=== PATIENT | female | born 1980 | race Caucasian/White ===

== ENCOUNTER 2024-11-13 18:02 | Emergency (ER) | payer MEDICAID, SELFPAY ==
--- NOTE | 2024-11-13 18:03 | XRR_ITS ---
PROCEDURE INFORMATION: Exam: XR Chest Exam date and time: 11/13/2024 7:31 PM Age: 44 years old Clinical indication: Chest wall pain; Additional info: Cp TECHNIQUE: Imaging protocol: Radiologic exam of the chest. Views: 1 view. COMPARISON: No relevant prior studies available. FINDINGS: Lungs: Masslike opacities in the left lung base measuring 2.4 cm, in the right lung base measuring 1.8 cm, and a nodular opacity in the right lung base measuring 9 mm. Pleural spaces: Unremarkable. No pleural effusion. No pneumothorax. Heart/Mediastinum: Unremarkable. No cardiomegaly. Bones/joints: Unremarkable. XR/XR chest 1V portable [id number] IMPRESSION: Masslike/nodular opacities in the lung bases, CT chest is recommended for further evaluation.
--- NOTE | 2024-11-13 18:07 | ECG_ITS ---
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
[2024-11-13 18:09] VITALS: BP 145/99; PULSE 84; RESP 17; TEMP 36.6; O2SAT 98; BMI 36.3
[2024-11-13] MEDS: ondansetron 2 mg/ML SDV 2 mL 4 MG IVP (19:21)
[2024-11-13] MEDS: ketorolac 60 mg/2 mL INJ 30 MG IVP (19:22)
[2024-11-13 19:24] LABS: Basophils # 0.1 10^3/uL (0.0-0.1); Basophils % 0.6 %; Eosinophils # 0.1 10^3/uL (0.0-0.8); Hematocrit 34.6 % (36-47); Lymphocytes # 3.5 10^3/uL (0.8-4.8); Lymphocytes % 28.2 %; Mean Corpuscular HGB Conc 31.2 g/dL (30-55); Mean Corpuscular Hemoglobin 25.2 pg (27-33); Mean Corpuscular Volume 80.8 fl (85-98); Mean Platelet Volume 9.6 fL (7.4-10.4); Monocytes # 0.6 10^3/uL (0.2-0.9); Monocytes % 4.8 %; Neutrophils # 8.05 10^3/uL (1.8-7.7); Neutrophils % 65.1 %; Nucleated Red Blood Cells % 0 %; Platelet Count 483 10^3/cmm (157-399); Red Blood Count 4.28 10^6/uL (3.85-5.65); White Blood Count 12.39 10^3/uL (3.29-11.43)
[2024-11-13 19:32] LABS: Partial Thromboplastin Time 27.5 SECONDS (23.9-36.7)
[2024-11-13 19:37] LABS: Troponin(5th) Baseline < 6 ng/L (0-10)
--- NOTE | 2024-11-13 19:41 | ED_ITS ---
HPI - Chest Pain 2 General: Chief Complaint: Chest Pain Stated Complaint: CP Time Seen by Provider: 11/13/24 19:08 History of Present Illness: Patient is a 44-year-old female who presents the emergency department complaining of chest pressure beginning this morning. States that it started with nausea, then started having ringing in her ears as well as a headache and then soon developed the chest pressure. She states it radiates into her back. Denies any personal cardiac history. She does state that she recently began phentermine for weight loss. No shortness of breath, palpitations, or peripheral edema. No concerning family cardiac history. She is reporting that the pain is mild and constant. She has never had this pain prior. No recent sickness, recent surgeries, prolonged immobilization, history of blood clots, or trauma reported. She does report to me history of anxiety. MD complaint: chest pain Onset (ago): hour(s) Timing of current episode: constant Prior episodes: No Onset: awoke with symptoms Pain location: substernal Pain radiation: back Severity: mild Relieving factors: nothing Exacerbating factors: nothing Context: new medications Associated symptoms: Reports nausea; Deny abdominal pain, dyspnea, fever(s), palpitations or vomiting Treatment prior to arrival: none Related Data Allergies Allergy/AdvReac Type Severity Reaction Status Date / Time azithromycin Allergy ALGY-Rash Verified 11/13/24 18:12 Review of Systems 2 General: Reports: 10 or more systems reviewed and unremarkable except in HPI and below Const: Denies: fever(s), chills or fatigue Eyes: Denies: change in vision ENMT: Reports: tinnitus; Denies: throat pain, ear or mastoid pain or nasal discharge Card: Reports: chest pain; Denies: palpitations, swelling of feet/ankles or lightheadedness Resp: Denies: dyspnea, productive cough or wheezing GI: Reports: nausea; Denies: abdominal pain, vomiting, diarrhea or constipation : Denies: flank pain, difficulty voiding, dysuria or urinary frequency Musc: Denies: neck pain, back pain or joint pain Skin/Breast: Denies: rash Neuro: Reports: headache(s); Denies: numbness in extremities or weakness in extremities Physical Exam 2 Const: COMMON NORMALS: no acute distress, patient oriented x3 and no limitations GENERAL APPEARANCE: cooperative, comfortable and well developed ORIENTATION/CONSCIOUSNESS: Yes awake, Yes oriented to person, Yes oriented to place and Yes oriented to time HENMT: COMMON NORMALS: normocephalic, atraumatic and hearing grossly normal bilaterally HEAD & SCALP: normocephalic and atraumatic Eye: COMMON NORMALS: Equal, round and reactive pupils present, EOMs intact bilaterally and conjunctivae normal CONJUNCTIVA: Yes conjunctivae normal P UPIL: Yes Equal, round and reactive pupils present Neck/C-Spine: COMMON NORMALS: full ROM, supple and no JVD Resp: COMMON NORMALS: normal respiratory effort, No retractions, No use of accessory muscles and clear to auscultation bilaterally AUSCULTATION: clear to auscultation bilaterally Cardio: COMMON NORMALS: no JVD, regular rate, regular rhythm, No clicks present (Cardio), No murmurs present (Cardio) and No rub (Cardio) RATE: r egular rate RHYTHM: regular rhythm GI: COMMON NORMALS: Normal to inspection, nondistended, normoactive bowel sounds present, Soft to palpation and non-tender AUSCULTATION: Yes normoactive bowel sounds PALPATION: Yes Soft to palpation RECTAL EXAM: d eferred Extremity: COMMON NORMALS: normal to inspection, full ROM and capillary refill normal Neuro: COMMON NORMALS: patient oriented x3, moves all extremities, no focal motor deficits and no sensory deficits noted SENSORIUM/ORIENTATION: Yes oriented to person, Yes oriented to place and Yes oriented to time Psych: COMMON NORMALS: mental status grossly normal and Normal thought process present THOUGHT PROCESS: Normal thought process present Skin: COMMON NORMALS: no rashes or lesions noted GENERAL SKIN EXAM: no rashes or lesions noted Course 2 Vital Signs: Vital signs: Vital Signs Temperature 98 F 11/13/24 18:09 Pulse Rate 82 11/13/24 20:30 Respiratory Rate 16 11/13/24 20:30 Blood Pressure 135/96 11/13/24 20:30 Pulse Oximetry 99 11/13/24 20:30 Oxygen Delivery Me thod Room Air 11/13/24 18:09 [facility] - Chest Pain Medical Decision Making Patient presented with chest pain among other symptoms today. Physical exam ultimately was unremarkable. EKG obtained showing normal sinus rhythm with no acute STEMI. Baseline troponin was normal. Slight elevation in her white count and found to be anemic, question her she states that she has been told she is anemic before but has not followed up on this. Her initial chest x-ray showed nodular/masslike appearance and recommended CT. The CT did confirm presence of pulmonary nodules, of which I discussed with the patient that she needs to follow-up with primary care to obtain further imaging or reevaluation of this in the future. She has not been short of breath and when I question her about her anemia, she states she has not been having any dark-colored stools or bright red blood per rectum. Additionally has not been reportedly weak or had any excessive weight loss. She actually states she is currently trying to lose weight by taking phentermine, cannot rule out that this caused her symptoms today or that this was blood pressure related. Blood pressure initially was elevated here but has normalized. I do not feel this chest pain is cardiac in nature, potentially related to her anxiety but I do think she needs to be reevaluated with primary care on an outpatient basis promptly and informed her to call tomorrow to set up an appointment. She agrees with this plan and she verbalized understanding to return precautions. Lab Data 11/13/24 19:15 11/13/24 19:15 Radiology Impressions Chest X-Ray 11/13/24 18:03 IMPRESSION: Masslike/nodular opacities in the lung bases, CT chest is recommended for further evaluation. Chest CT 11/13/24 19:58 IMPRESSION: 1. No focal consolidations. 2. Multiple bilateral pulmonary nodules measuring up to 26 mm in the left lower lobe (series 4, image 41). Consider non-emergent PET/CT or tissue sampling.(Reference: Tameka) References: Tameka Sadler, et al. Guidelines for Management of Incidental Pulmonary Nodules Detected on CT Images: From the Fleischner Society 2017. Radiology. 2017;284(1):228-243. Laboratory Results WBC 12.39 10^3/uL (3.29-11.43) H 11/13/24 19:15 RBC 4.28 10^6/uL (3.85-5.65) 11/13/24 19:15 Hgb 10.80 g/dL (11.27-16.99) L 11/13/24 19:15 Hct 34.6 % (36-47) L 11/13/24 19:15 MCV 80.8 fl (85-98) L 11/13/24 19:15 MCH 25.2 pg (27-33) L 11/13/24 19:15 MCHC 31.2 g/dL (30-55) 11/13/24 19:15 RDW 16.0 % (12.1-15.1) H 11/13/24 19:15 Plt Count 483 10^3/cmm (157-399) H 11/13/24 19:15 MPV 9.6 fL (7.4-10.4) 11/13/24 19:15 Neut % (Auto) 65.1 % 11/13/24 19:15 Lymph % (Auto) 28.2 % 11/13/24 19:15 [place] % (Auto) 4.8 % 11/13/24 19:15 Eos % (Auto) 1.0 % 11/13/24 19:15 Baso % (Auto) 0.6 % 11/13/24 19:15 Neut # (Auto) 8.05 10^3/uL (1.8-7.7) H 11/13/24 19:15 Lymph # (Auto) 3.5 10^3/uL (0.8-4.8) 11/13/24 19:15 [place]dwell # (Auto) 0.6 10^3/uL (0.2-0.9) 11/13/24 19:15 Eos # (Auto) 0.1 10^3/uL (0.0-0.8) 11/13/24 19:15 Baso # (Auto) 0.1 10^3/uL (0.0-0.1) 11/13/24 19:15 Nucleated RBC % (auto) 0 % 11/13/24 19:15 Nucleated RBCs # 0.0 /100WBC 11/13/24 19:15 APTT 27.5 SECONDS (23.9-36.7) 11/13/24 19:15 Sodium 140 mmol/L (136-145) 11/13/24 19:15 Potassium 3.9 mmol/L (3.5-5.1) 11/13/24 19:15 Chloride 102 mmol/L (98-107) 11/13/24 19:15 Carbon Dioxide 27 mmol/L (22-29) 11/13/24 19:15 Anion Gap 14.9 (5-19) 11/13/24 19:15 BUN 9 mg/dL (6-20) 11/13/24 19:15 Creatinine 0.7 mg/dL (0.5-0.9) 11/13/24 19:15 GFR Calculation 91.3 mL/min (90-130) 11/13/24 19:15 Glucose 103 mg/dL (65-115) 11/13/24 19:15 Calculated Osmolality 289 mOsm/kg (285-295) 11/13/24 19:15 Calcium 9.7 mg/dL (8.5-10.5) 11/13/24 19:15 Total Bilirubin 0.2 mg/dL (0.15-1.2) 11/13/24 19:15 AST 19 U/L (0-32) 11/13/24 19:15 ALT 22 U/L (0-33) 11/13/24 19:15 Alkaline Phosphatase 116 U/L (35-105) H 11/13/24 19:15 Troponin T Baseline < 6 ng/L (0-10) 11/13/24 19:15 Total Protein 7.7 g/dL (6.6-8.7) 11/13/24 19:15 Albumin 4.7 g/dL (3.5-5.2) 11/13/24 19:15 Globulin 3.0 g/dL (1.3-4.6) 11/13/24 19:15 Lipase 26 U/L (13-60) 11/13/24 19:15 All radiology interpretation(s) finalized by discharge Discharge Plan Discharge Patient Disposition: Home Clinical Impression: Chest pain, Anxiety, Pulmonary nodule, Anemia Condition: Stable Discharge Orders: Discharge ED (Routine); Ordered 11/13/24 Ordered By: Ronaldo Carbone Referrals: Rafa Alvarez MD [Primary Care Provider] - Patient Instructions: Chest Pain (ED), Anemia (ED), Pulmonary Nodules (ED) Activity Restrictions/Additional Instructions: Please follow-up with your primary care provider, call in the morning to schedule an appointment for reevaluation. Have your CT scan reviewed, and also have your labs rechecked in regards to your anemia. Please return with any worsening of chest pain or any other concerning symptoms you have. Please see the attached patient instructions for further education. Print Language: Sami Coding Level of Care Code ED Energy Trader for Jazmine Parra
[2024-11-13 19:43] LABS: Alanine Aminotransferase 22 U/L (0-33); Albumin Level 4.7 g/dL (3.5-5.2); Alkaline Phosphatase 116 U/L (35-105); Anion Gap 14.9 (5-19); Aspartate Amino Transferase 19 U/L (0-32); Blood Urea Nitrogen 9 mg/dL (6-20); Calcium 9.7 mg/dL (8.5-10.5); Carbon Dioxide 27 mmol/L (22-29); Chloride 102 mmol/L (98-107); Glomerular Filtration Rate 91.3 mL/min (90-130); Glucose 103 mg/dL (65-115); Lipase 26 U/L (13-60); Osmolality Calculated 289 mOsm/kg (285-295); Potassium 3.9 mmol/L (3.5-5.1); Sodium 140 mmol/L (136-145); Total Bilirubin 0.2 mg/dL (0.15-1.2); Total Protein 7.7 g/dL (6.6-8.7)
--- NOTE | 2024-11-13 19:58 | CTR_ITS ---
PROCEDURE INFORMATION: Exam: CT Chest With Contrast; Diagnostic Exam date and time: 11/13/2024 8:32 PM Age: 44 years old Clinical indication: Abnormal findings; Other: Abnormal XR; Additional info: XR findings TECHNIQUE: Imaging protocol: Diagnostic computed tomography of the chest with contrast. Radiation optimization: All CT scans at this facility use at least one of these dose optimization techniques: automated exposure control; mA and/or kV adjustment per patient size (includes targeted exams where dose is matched to clinical indication); or iterative reconstruction. Contrast material: OMNIPAQUE 350; Contrast volume: 100 ml; Contrast route: INTRAVENOUS (IV); COMPARISON: CR (CHEST, ) 11/13/2024 7:31 PM RADIATION DOSE METRICS: Total DLP (mGy-cm): 669.41 FINDINGS: Lungs: Multiple bilateral pulmonary nodules measuring up to 26 mm in the left lower lobe (series 4, image 41). No focal consolidations. Pleural spaces: Unremarkable. No pneumothorax. No pleural effusion. Heart: Unremarkable. No cardiomegaly. No pericardial effusion. Lymph nodes: Unremarkable. No enlarged lymph nodes. Vasculature: Unremarkable. No aortic aneurysm. Gallbladder and biliary ducts: The gallbladder is absent. Bones/joints: Unremarkable. No acute fracture. Soft tissues: Unremarkable. CT/CT chest w con* [id number] IMPRESSION: 1. No focal consolidations. 2. Multiple bilateral pulmonary nodules measuring up to 26 mm in the left lower lobe (series 4, image 41). Consider non-emergent PET/CT or tissue sampling.(Reference: Tameka) References: Tameka Sadler et al. Guidelines for Management of Incidental Pulmonary Nodules Detected on CT Images: From the Fleischner Society 2017. Radiology. 2017;284(1):228-243.
[2024-11-13 20:30] VITALS: BP 135/96; PULSE 82; RESP 16; O2SAT 99
[2024-11-13] MEDS: iohexol 350 mg/mL 500 mL Btl (per mL) IV (20:35)
== END 2024-11-13 22:31 | disposition home or self-care (01) ==
PROVIDERS: Emergency Medicine; Emergency Provider Physician Assistant; PCP Family Medicine
DX: R07.9 Chest pain, unspecified (principal); F41.9 Anxiety disorder, unspecified; R91.1 Solitary pulmonary nodule; D64.9 Anemia, unspecified
CPT/HCPCS: 71045; 71260; 80053; 83690; 84484; 85025; 85730; 93005; 96374; 96375; 99285; J1885; J2405

== ENCOUNTER 2025-04-13 13:35 | Emergency (ER) | payer MEDICAID, SELFPAY ==
--- OUTSIDE RECORDS SUMMARY | 2025-04-13 13:41 | XMS_ITS ---
Author Name Interface, [id number] lity Address [address] [place] [id number] [facility] Oncology Address [address] [place] [id number] Allergies and Adverse Reactions Medication/Group Name Reaction Severity Date azithromycin 02/18/2025 Plan Date Type Value 04/02/2025 APPOINTMENT TELEMED (PHONE C ALL ONLY) 04/01/2025 APPOINTMENT CHEMO 15 MIN 03/18/2025 APPOINTMENT CHEMO 15 MIN 03/13/2025 APPOINTMENT CHEMO LAB CHAIR 03/06/2025 APPOINTMENT BLOOD TRANSFUSIO N 03/04/2025 APPOINTMENT CHEMO 15 MIN 03/04/2025 APPOINTMENT ONC FOLLOW-UP 04/01/2025 YUMIKO MRI pelvis w/ an d w/o contrast Reason for Visit TELEMED (PHONE CALL ONLY) Encounters Date Name 03/04/2025 Bone metastasis 03/04/2025 Rectal cancer Diagnostic Results Date Type Test Units Lower Limit Upper Limit Result Flag Comments Status Ordered By Specimen Source Lab Address 03/04 Leuko cytes [#/vo lume] in Blood by Autom ated count 4.8 10.8 7.9 Rosetta l [facility], [address] [place] [id number] [place] [address] 03/04 Eryth rocyt es [#/vo lume] in Blood by Autom ated count 4.2 5.4 3.66 Low [facility], [address] [place] [address] [facility] 03/04 Hemog lobin [Mass /volu me] in Blood 12.0 16.0 8.7 Low [facility], [address] [place] [address] [facility] 03/04 HCT 37.0 47.0 27.9 Low Malvin Pascual Source, [facility], [address] [place] [address] [facility] 03/04 MCV 81.0 99.0 76.2 Low Malvin Pascual [facility], [facility], [address] [place] [address] [facility] 03/04 MCH 27.0 31.0 23.8 Low Malvin Pascual [facility], [facility], [address] [place] [address] [facility] 03/04 MCHC [Mass /volu me] by Autom ated count 32.0 36.0 31.2 Low Malvin Pascual [facility], [address] [place] [address] [facility] 03/04 Eryth rocyt e distr ibuti on width [Rati o] by Autom ated count 11.5 15.5 16.7 High [facility], [address] [place] [address] [facility] 03/04 Plate lets [#/vo lume] in Blood by Autom ated count 130.0 400.0 315 Rosetta l [facility], [facility], [address] [place] [address] [facility] 03/04 MPV 7.4 10.4 8.9 [facility], [facility], [address] [place] [address] [facility] 03/04 Segme nted neutr ophil s/100 leuko cytes in Blood by Autom ated count 43.0 65.0 48.7 Rosetta [facility], [facility], [address] [place] [address] [facility] 06/17 /2025 Lymph ocyte s/100 leuko cytes in Blood by Flow cytom etry (FC) 20.5 45.5 38.3 Rosetta l Malvin Pascual [facility], [facility], [address] [place] [address] [facility] 03/04 MO % 5.5 11.7 9.3 Rosetta l Malvin Pascual [facility], [facility], [address] [place] [address] [facility] 03/04 EO % 0.9 2.9 2.8 Rosetta l Mal[facility], [facility], [address] [place] [address] [facility] 03/04 BA % 0.2 1.0 0.6 Rosetta l Malvin Pascual [facility], [facility], [address] [place] [address] [facility] 03/04 Neutr ophil s [#/vo lume] in Blood by Autom ated count 2.2 4.8 3.83 [facility], [address] [place] [address] [facility] 03/04 Lymph ocyte s [#/vo lume] in Blood by Autom ated count 1.3 2.9 3.01 High [facility], [address] [place] [address] [facility] 03/04 Monoc ytes [#/vo lume] in Blood by Autom ated count 0.3 0.8 0.73 [facility], [facility], [address] [place] [address] [facility] 03/04 Eosin ophil s [#/vo lume] in Blood by Autom ated count 0.0 0.1 0.22 High [facility], [address] [place] [address] [facility] 03/04 Basop hils [#/vo lume] in Blood by Autom ated count 0.0 0.1 0.05 [place] l [facility], [address] [place] [address] [facility] 03/04 Gluco se [Mass /volu me] in Serum or Plasm a 74.0 106.0 98 [place] [facility], [address] [place] [address] [facility] 03/04 BUN 7.0 17.0 7 [place] [facility], [address] [place] [address] [place] [address] [facility] 03/04 Creat inine [Mass /volu me] in Serum or Plasm a 0.7 1.2 0.7 [place] [facility], [address] [place] [address] [facility] 03/04 Sodiu m 137.0 145.0 139 [place] [facility], [address] [place] [address] [facility] 03/04 Potas sium [Mole s/vol ume] in Serum or Plasm a 3.5 5.1 3.4 Low [facility], [address] [place] [address] [place] [address] [facility] 03/04 Chlor ronny 98.0 107.0 106 Ros[place] [facility], [facility] [place] [address] [facility] 03/04 Carbo n dioxi de, total [Mole s/vol ume] in Serum or Plasm a 22.0 30.0 28 [place] [facility], [address] [facility] [address] [facility] 03/04 Calci um [Mass /volu me] in Blood 8.4 10.2 8.3 Low [facility], [address] [place] [address] [facility] 03/04 Anion gap 4.0 12.0 5 [place] [facility], [address] [place] [address] [facility] 03/04 Urea nitro gen/C reati nine [Mass Ratio ] in Blood 12.0 20.0 10.0 Low [facility], [address] [place] [address] [facility] 03/04 Sasha al , anneu lated , mOs/k g 261.0 280.0 276 [place] [facility], [address] [facility] [address] [facility] 03/04 Glome rular filtr ation rate/ 1.73 sq M.pre dicte d [Volu me Rate/ Area] in Serum , Plasm a or Blood by Creat inine -base d formu la (CKD- EPI) 90.0 120.0 110 >=90 [id number]- 89 Mildly Decreased 45-59 Mildly to Moderatel y Decreased 30-44 Moderatel y to Severely Decreased 15-29 Severely Decreased <15 Kidney Failure [facility], [address] [place] [address] [facility] 03/04 Bilir ubin, total 0.2 1.3 0.30 [place] [facility], [address] [place] [address] [facility] 03/04 Aspar diana amino trans feras e [Enzy matic activ ity/v olume ] in Serum or Plasm a 14.0 36.0 20 [place] [facility], [address] [place] [address] [facility] 03/04 Darvin ne amino trans feras e [Enzy matic activ ity/v olume ] in Serum or Plasm a 0.0 34.0 17 [place] [facility], [facility], [address] [facility] [place] [address] [facility] 03/04 Alkal ine phosp hatas e [Enzy matic activ ity/v olume ] in Serum or Plasm a 38.0 126.0 96 Ros[place] [facility], [facility], [address] [facility] [place] [address] [facility] 03/04 Prote in [Mass /volu me] in Serum or Plasm a 6.3 8.2 6.1 Low [facility], [facility], [address] [facility] [address] [facility] 03/04 Album in [Mass /volu me] in Serum or Plasm a 3.5 5.0 3.5 Rosetta l [facility], [facility], [address] [facility] [place] [address] [facility] 03/04 Globu lesli 2.2 4.2 2.6 [place] [facility], [facility], [address] [place] [address] [facility] 03/04 A/G ratio 1.1 2.2 1.30 [place] [facility], [facility], [address] [facility] [address] [facility] 03/04 PRBC, leuko cyte- reduc ed [id number] AN RC PRSMD TRFSD 5 1421 [facility] 03/04 Blood bank type and scree n panel ABO/R h AN CORRECT ED [facility], [address] [facility] [place] [address] 03/04 Blood bank type and scree n panel Antib yung scree n, qual NEGATIV E CORRECT ED Malvin Pascual Unknown [facility], [address] [facility] [place] [address] 03/13 Leuko cytes [#/vo lume] in Blood by Autom ated count 4.8 10.8 8.5 Rosetta l [facility], [facility], [address] [place] [address] [facility] 03/13 Eryth rocyt es [#/vo lume] in Blood by Autom ated count 4.2 5.4 4.34 Rosetta l [facility], [facility], [address] [place] [address] [facility] 03/13 Hemog lobin [Mass /volu me] in Blood 12.0 16.0 10.6 Low [facility], [facility], [address] [place] [address] [facility] 03/13 HCT 37.0 47.0 33.5 Low Mal[facility], [facility], [address] [place] [address] [facility] 03/13 MCV 81.0 99.0 77.2 Low [facility], [facility], [address] [place] [address] [facility] 03/13 MCH 27.0 31.0 24.4 Low [facility], [facility], [address] [place] [address] [facility] 03/13 MCHC [Mass /volu me] by Autom ated count 32.0 36.0 31.6 Low [facility], [facility], [address] [place] [address] [facility] 03/13 Eryth rocyt e distr ibuti on width [Rati o] by Autom ated count 11.5 15.5 17.2 High [facility], [facility], [address] [facility] [place] [address] [facility] 03/13 Plate lets [#/vo lume] in Blood by Autom ated count 130.0 400.0 290 Rosetta l [facility], [facility], [address] [place] [address] [facility] 03/13 MPV 7.4 10.4 9.3 Rosetta l [facility], [facility], [address] [place] [address] [facility] 03/13 Segme nted neutr ophil s/100 leuko cytes in Blood by Autom ated count 43.0 65.0 62.3 Rosetta l [facility], [facility], [address] [place] [address] [facility] 03/13 Lymph ocyte s/100 leuko cytes in Blood by Flow cytom etry (FC) 20.5 45.5 24.9 Rosetta l Malvin Pascual [facility], [facility], [address] [facility] [place] [address] [facility] 03/13 MO % 5.5 11.7 8.7 Rosetta l [facility], [facility], [address] [facility] [place] [address] [facility] 03/13 EO % 0.9 2.9 2.7 Rosetta l [facility], [facility], [address] [place] [address] [facility] 03/13 BA % 0.2 1.0 0.9 Ros[place] l [facility], [facility], [address] [place] [address] [facility] 03/13 Neutr ophil s [#/vo lume] in Blood by Autom ated count 2.2 4.8 5.32 High [facility], [facility], [address] [facility] [place] [address] [facility] 03/13 Lymph ocyte s [#/vo lume] in Blood by Autom ated count 1.3 2.9 2.13 Rosetta l [facility], [facility], [address] [facility] [place] [address] [facility] 03/13 Monoc ytes [#/vo lume] in Blood by Autom ated count 0.3 0.8 0.74 Rosetta l Malvin Pascual [facility], [facility], [address] [facility] [place] [address] [facility] 03/13 Eosin ophil s [#/vo lume] in Blood by Autom ated count 0.0 0.1 0.23 High Malvin Pascual [facility], [facility], [address] [place] [address] [facility] 03/13 Basop hils [#/vo lume] in Blood by Autom ated count 0.0 0.1 0.08 [facility], [facility], [address] [place] [address] [facility] 03/13 Gluco se [Mass /volu me] in Serum or Plasm a 74.0 106.0 118 High Malvin Pascual [facility], [address] [place] [address] [facility] 03/13 BUN 7.0 17.0 8 Rosetta l Malvin Pascual [facility], [address] [place] [address] [facility] 03/13 Creat inine [Mass /volu me] in Serum or Plasm a 0.7 1.2 0.8 [place] l Malvin Pascual [facility], [address] [facility] [place] [address] [facility] 03/13 Sodiu m 137.0 145.0 140 [place] l Mal[facility], [facility], [address] [place] [address] [facility] 03/13 Potas sium [Mole s/vol ume] in Serum or Plasm a 3.5 5.1 4.0 Rosetta l Malvin Pascual [facility], [facility], [address] [place] [address] [facility] 03/13 Chlor ronny 98.0 107.0 103 [place] l Malvin Pascual [facility], [facility], [address] [place] [address] [facility] 03/13 Carbo n dioxi de, total [Mole s/vol ume] in Serum or Plasm a 22.0 30.0 26 Rosetta l Malvin Pascual [facility], [facility], [address] [place] [address] [facility] 03/13 Calci um [Mass /volu me] in Blood 8.4 10.2 9.3 Rosetta l Malvin Pascual [facility], [facility], [address] [place] [address] [facility] 03/13 Anion gap 4.0 12.0 11 Ros[place] l Malvin Pascual [facility], [facility], [address] [place] [address] [facility] 03/13 Urea nitro gen/C reati nine [Mass Ratio ] in Blood 12.0 20.0 10.0 Low Malvin Pascual [facility], [facility], [address] [place] [address] [facility] 03/13 kannan [place] , mOs/k g 261.0 280.0 279 Rosetta l Malvin Pascual [facility], [facility], [address] [place] [address] [facility] 03/13 Glome rhodar filtr ation rate/ 1.73 sq M.pre dicte d [Volu me Rate/ Area] in Serum , Plasm a or Blood by Creat inine -base d formu la (CKD- EPI) 90.0 120.0 94 >=90 [id number]- 89 Mildly Decreased 45-59 Mildly to Moderatel y Decreased 30-44 Moderatel y to Severely Decreased 15-29 Severely Decreased <15 Kidney Failure [facility], [address] [place] [address] [facility] 03/13 Bilir ubin, total 0.2 1.3 0.60 Ros[place] l [facility], [address] [place] [address] [facility] 03/13 Aspar diana amino trans feras e [Enzy matic activ ity/v olume ] in Serum or Plasm a 14.0 36.0 31 Ros[place] [facility], [address] [place] [address] [facility] 03/13 Darvin ne amino trans feras e [Enzy matic activ ity/v olume ] in Serum or Plasm a 0.0 34.0 20 Ros[place] [facility], [address] [place] [address] [facility] 03/13 Alkal ine phosp hatas e [Enzy matic activ ity/v olume ] in Serum or Plasm a 38.0 126.0 116 Ros[place] l [facility], [address] [place] [address] [facility] 03/13 Prote in [Mass /volu me] in Serum or Plasm a 6.3 8.2 7.2 Ros[place] l [facility], [facility] [place] [address] [facility] 03/13 Album in [Mass /volu me] in Serum or Plasm a 3.5 5.0 4.2 Rosetta l Mal[facility], [facility], [address] [place] [address] [facility] 03/13 Globu lesli 2.2 4.2 3.0 Rosetta l Malvin Samara [facility], [facility], [address] [place] [address] [facility] 03/13 A/G ratio 1.1 2.2 1.40 Rosetta l Malvindes Pascual [facility], [facility], [address] [place] [address] [facility] 03/18 Gluco se [Mass /volu me] in Serum or Plasm a 74.0 106.0 95 Rosetta l Malvin Pascual [facility], [facility], [address] [place] [address] [facility] 03/18 BUN 7.0 17.0 10 Rosetta l Malvin Pascual [facility], [facility], [address] [place] [address] [facility] 03/18 Creat inine [Mass /volu me] in Serum or Plasm a 0.7 1.2 0.8 Rosetta l Malvin Pascual [facility], [facility], [address] [place] [address] [facility] 03/18 Sodiu m 137.0 145.0 139 [facility], [facility], [address] [place] [address] [facility] 03/18 Potas sium [Mole s/vol ume] in Serum or Plasm a 3.5 5.1 3.0 Low [facility], [facility], [address] [place] [address] [facility] 03/18 Chlor ronny 98.0 107.0 105 [place] [facility], [facility], [address] [place] [address] [facility] 03/18 Carbo n dioxi de, total [Mole s/vol ume] in Serum or Plasm a 22.0 30.0 29 [place] [facility], [address] [place] [address] [facility] 03/18 Calci um [Mass /volu me] in Blood 8.4 10.2 8.6 [place] [facility], [address] [place] [address] [facility] 03/18 Anion gap 4.0 12.0 5 [place] [facility], [address] [place] [address] [facility] 03/18 Urea nitro gen/C reati nine [Mass Ratio ] in Blood 12.0 20.0 12.5 [place] [facility], [address] [place] [address] [facility] 03/18 Osmol ality , calcu lated , mOs/k g 261.0 280.0 276 [place] [facility], [address] [place] [address] [place] [address] 03/18 Glome rular filtr ation rate/ 1.73 sq M.pre dicte d [Volu me Rate/ Area] in Serum , Plasm a or Blood by Creat inine -base d formu la (CKD- EPI) 90.0 120.0 94 >=90 [id number]- 89 Mildly Decreased 45-59 Mildly to Moderatel y Decreased 30-44 Moderatel y to Severely Decreased 15-29 Severely Decreased <15 Kidney Failure [facility], [address] [place] [address] [facility] 03/18 Bilir ubin, total 0.2 1.3 0.30 [place] [facility], [address] [place] [address] [facility] 03/18 Aspar diana amino trans feras e [Enzy matic activ ity/v olume ] in Serum or Plasm a 14.0 36.0 31 Rosetta l Malvin Pascual [facility], [facility], [address] [facility] [place] [address] [facility] 03/18 Darvin ne amino trans feras e [Enzy matic activ ity/v olume ] in Serum or Plasm a 0.0 34.0 22 Rosetta l Malvin Pascual [facility], [facility], [address] [facility] [place] [address] [facility] 03/18 Alkal ine phosp hatas e [Enzy matic activ ity/v olume ] in Serum or Plasm a 38.0 126.0 114 Rosetta l Malvin Pascual [facility], [facility], [address] [facility] [place] [address] [facility] 03/18 Prote in [Mass /volu me] in Serum or Plasm a 6.3 8.2 6.7 Rosetta l Malvin Pascual [facility], [facility], [address] [place] [address] [facility] 03/18 Album in [Mass /volu me] in Serum or Plasm a 3.5 5.0 3.8 Rosetta l Malvin Pascual [facility], [facility], [address] [place] [address] [facility] 03/18 Globu lesli 2.2 4.2 2.9 Rosetta l Malvin Pascual [facility], [facility], [address] [place] [address] [facility] 03/18 A/G ratio 1.1 2.2 1.30 Rosetta l Malvin Pascual [facility], [facility], [address] [facility] [place] [address] [facility] 03/18 MPV 7.4 10.4 9.5 Rosetta l Malvin Pascual [facility], [facility], [address] [facility] [place] [address] [facility] 03/18 Segme nted neutr ophil s/100 leuko cytes in Blood by Autom ated count 43.0 65.0 55.2 Rosetta l Mal[facility], [facility], [address] [facility] [place] [address] [facility] 03/18 Lymph ocyte s/100 leuko cytes in Blood by Flow cytom etry (FC) 20.5 45.5 31.6 Rosetta l [facility], [facility], [address] [facility] [place] [address] [facility] 03/18 MO % 5.5 11.7 8.0 Rosetta l Mal[facility], [facility], [address] [facility] [place] [address] [facility] 03/18 EO % 0.9 2.9 4.0 High Malvin P[facility], [facility], [address] [place] [address] [facility] 03/18 BA % 0.2 1.0 1.0 Rosetta l Mal[facility], [facility], [address] [place] [address] [facility] 03/18 Neutr ophil s [#/vo lume] in Blood by Autom ated count 2.2 4.8 2.22 Rosetta l Mal[facility], [facility], [address] [facility] [place] [address] [facility] 03/18 Lymph ocyte s [#/vo lume] in Blood by Autom ated count 1.3 2.9 1.27 Low Malvin [facility], [facility], [address] [place] [address] [facility] 03/18 Monoc ytes [#/vo lume] in Blood by Autom ated count 0.3 0.8 0.32 Rosetta l Malvin [facility], [facility], [address] [place] [address] [facility] 03/18 Eosin ophil s [#/vo lume] in Blood by Autom ated count 0.0 0.1 0.16 High Malvin Pascual [facility], [facility], [address] [place] [address] [facility] 03/18 Basop hils [#/vo lume] in Blood by Autom ated count 0.0 0.1 0.04 Rosetta l Malvin Pascual [facility], [address] [place] [address] [facility] 03/18 Leuko cytes [#/vo lume] in Blood by Autom ated count 4.8 10.8 4.0 Low Malvin Pascual [facility], [address] [facility] [address] [facility] 03/18 Eryth rocyt es [#/vo lume] in Blood by Autom ated count 4.2 5.4 3.88 Low Malvin Pascual [facility], [address] [facility] [address] [facility] 03/18 Hemog lobin [Mass /volu me] in Blood 12.0 16.0 9.6 Low Malvin Pascual [facility], [address] [facility] [address] [facility] 03/18 HCT 37.0 47.0 30.4 Low [facility], [address] [facility] [address] [facility] 03/18 MCV 81.0 99.0 78.4 Low [facility], [address] [place] [address] [facility] 03/18 MCH 27.0 31.0 24.7 Low Malvin Pascual Source, Unspecifi ed [facility], [address] [place] [address] [facility] 03/18 MCHC [Mass /volu me] by Autom ated count 32.0 36.0 31.6 [facility] Un[facility]ifi [facility], [address] [place] [address] [facility] 03/18 Eryth rocyt e distr ibuti on width [Rati o] by Autom ated count 11.5 15.5 19.0 [facility] [address] [place] [address] [facility] 03/18 Plate lets [#/vo lume] in Blood by Autom ated count 130.0 400.0 205 Rosetta l [facility], [facility], [address] [place] [address] [facility] 04/02 MRILU MB*- [facility] [address] [place] [address] [place] [address] Radiolo gy ReportP atient: FISH MAURER FCsaeed letha: 5 0800 Date of Service : 5Acct #: [id number] #: [id number]/ AGE/SEX :1979 / 44 / FRoom/B ed: Locatio n: [place] RADAcce ssion: [id number] : MRI Pelvis W W/O Cont Reason: RECTAL CAOrder ing Provide r: Samara,At if [facility] ding Provide r: SamaraAt [facility]: Indira Coombs; Abigail blunt MD, Remy Dorsey; Samara PEREZ, [facility] or[facility] Number: [id number] atient total CT exams last year 5MRI PELVIS WITHOUT AND WITH CONTRAS THISTOR Y: RECTAL CACOMPA RISON: 5TECHNI QUE: Multipl festus multiec ho MRI examina tion of the pelvis/ rectum wasperf ormed without and with gadolin ium contras t. Rectal contras t was refused bypatie nt.FIND INGS:Fo davidson area of thicken ing of the posteri or wall of the rectum is identif iedmeas uring 6 mm approxi mately 6.8 cm above the anal verge. Early transmu ralexte nsion is seen with small fingerl michael project ions in the posteri or perirec talfat along the rectum. Approxi mately 5 small perirec johnnie lymph nodes arevisu alized along the posteri or left aspect of the rectum. No extensi on ofdisea se is seen to the mesorec johnnie fascia. No involve ment of adjacen t pelvics tructur es is seen.IM PRESSIO N:1. 6 mm area of focal wall thicken ing of the posteri or wall of the rectum 6.8cm above the anal verge demonst rates posteri or transmu ral extensi on where smallfi ngerlik e project ions are noted in the perirec johnnie fat. Approxi mately 5 smallme sorecta l lymph nodes are seen but no disease is seen extendi ng to themeso rectal fascia or outside the fascia. All radiolo gy exams are perform ed followi ng ALARA, all CT images are acquire d using Validus-IVCat edexpos ure control .End of ReportD ictated by: Remy Hayes i, MD 5 [id number] nscript ionist: Remy Hayes i, M.D. 5 1523Sig tami by: Remy Hayes i, MD 5 1531 SCHEDUL ED [facility] Medications Date Name Route Dose Frequency Instructions Start Date End Date Status Zolpidem Oral Tablet hs active Fluoxetine Oral daily a ctive Methocarbamol Oral QID PRN active Celecoxib Oral BID ac tive Clonazepam Oral daily PRN active 01/20 5 ML zoledronic acid 0.8 MG/ML Injection intravenously 4.0 mg once 2025 active 01/20 1 ML epinephrine 1 MG/ML Injection intramuscularly 0.3 mg once Re-initiate treatment only upon physician approval. 2025 active 01/20 Diphenhydramine IV intravenously 50.0 mg Re-initiate treatment only upon physician approval. 2025 active 01/20 Solu-Cortef intravenously 100.0 mg Re-initiate treatment only upon physician approval. 2025 active 01/20 famotidine 10 MG/ML Injectable Solution intravenously 20.0 mg Re-initiate treatment only upon physician approval. 2025 active 01/20 Solu-Medrol intravenously 125.0 mg Re-initiate treatment only upon physician approval. 2025 active 12/23 famotidine 10 MG/ML Injectable Solution intravenously 20.0 mg Re-initiate treatment only upon physician approval. 2025 active 12/23 Solu-Cortef intravenously 100.0 mg Re-initiate treatment only upon physician approval. 2025 active 12/23 Solu-Medrol intravenously 125.0 mg Re-initiate treatment only upon physician approval. 2025 active 12/23 5 ML zoledronic acid 0.8 MG/ML Injection intravenously 4.0 mg once 2025 active 12/23 Diphenhydramine IV intravenously 50.0 mg Re-initiate treatment only upon physician approval. 2025 active 12/23 1 ML epinephrine 1 MG/ML Injection intramuscularly 0.3 mg once Re-initiate treatment only upon physician approval. 2025 active 11/25 Diphenhydramine IV intravenously 50.0 mg Re-initiate treatment only upon physician approval. 2025 active 11/25 5 ML zoledronic acid 0.8 MG/ML Injection intravenously 4.0 mg once 2025 active 11/25 famotidine 10 MG/ML Injectable Solution intravenously 20.0 mg Re-initiate treatment only upon physician approval. 2025 active 11/25 Solu-Medrol intravenously 125.0 mg Re-initiate treatment only upon physician approval. 2025 active 11/25 Solu-Cortef intravenously 100.0 mg Re-initiate treatment only upon physician approval. 2025 active 11/25 1 ML epinephrine 1 MG/ML Injection intramuscularly 0.3 mg once Re-initiate treatment only upon physician approval. 2025 active 10/28 Solu-Cortef intravenously 100.0 mg Re-initiate treatment only upon physician approval. 2025 active 10/28 Diphenhydramine IV intravenously 50.0 mg Re-initiate treatment only upon physician approval. 2025 active 10/28 famotidine 10 MG/ML Injectable Solution intravenously 20.0 mg Re-initiate treatment only upon physician approval. 2025 active 10/28 1 ML epinephrine 1 MG/ML Injection intramuscularly 0.3 mg once Re-initiate treatment only upon physician approval. 2025 active 10/28 Solu-Medrol intravenously 125.0 mg Re-initiate treatment only upon physician approval. 2025 active 10/28 5 ML zoledronic acid 0.8 MG/ML Injection intravenously 4.0 mg once 2025 active 09/30 famotidine 10 MG/ML Injectable Solution intravenously 20.0 mg Re-initiate treatment only upon physician approval. 2025 active 09/30 Diphenhydramine IV intravenously 50.0 mg Re-initiate treatment only upon physician approval. 2025 active 09/30 Solu-Medrol intravenously 125.0 mg Re-initiate treatment only upon physician approval. 2025 active 09/30 1 ML epinephrine 1 MG/ML Injection intramuscularly 0.3 mg once Re-initiate treatment only upon physician approval. 2025 active 09/30 5 ML zoledronic acid 0.8 MG/ML Injection intravenously 4.0 mg once 2025 active 09/30 Solu-Cortef intravenously 100.0 mg Re-initiate treatment only upon physician approval. 2025 active 09/02 Solu-Cortef intravenously 100.0 mg Re-initiate treatment only upon physician approval. 2024 active 09/02 famotidine 10 MG/ML Injectable Solution intravenously 20.0 mg Re-initiate treatment only upon physician approval. 2024 active 09/02 1 ML epinephrine 1 MG/ML Injection intramuscularly 0.3 mg once Re-initiate treatment only upon physician approval. 2024 active 09/02 Diphenhydramine IV intravenously 50.0 mg Re-initiate treatment only upon physician approval. 2024 active 09/02 Solu-Medrol intravenously 125.0 mg Re-initiate treatment only upon physician approval. 2024 active 09/02 5 ML zoledronic acid 0.8 MG/ML Injection intravenously 4.0 mg once 2024 active 08/05 famotidine 10 MG/ML Injectable Solution intravenously 20.0 mg Re-initiate treatment only upon physician approval. 2024 active 08/05 Solu-Medrol intravenously 125.0 mg Re-initiate treatment only upon physician approval. 2024 active 08/05 1 ML epinephrine 1 MG/ML Injection intramuscularly 0.3 mg once Re-initiate treatment only upon physician approval. 2024 active 08/05 5 ML zoledronic acid 0.8 MG/ML Injection intravenously 4.0 mg once 2024 active 08/05 Diphenhydramine IV intravenously 50.0 mg Re-initiate treatment only upon physician approval. 2024 active 08/05 Solu-Cortef intravenously 100.0 mg Re-initiate treatment only upon physician approval. 2024 active 07/22 fluorouracil 50 MG/ML Injectable Solution via continuous infusion 5000.0 mg once TOTAL CIV CYCLE DOSE = 2400 mg/m2 CIV over 46 hours. Patient to be seen for a pump disconnect on Day 3. Refer to drug stability guidelines. 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 Dilute in NS or D5W. 2024 active 07/22 hydrocortisone 100 MG Injection intravenously 100.0 mg Re-initiate treatment only upon physician approval. 2024 active 07/22 dexamethasone phosphate 4 MG/ML Injectable Solution intravenously 10.0 mg once 2024 active 07/22 1 ML epinephrine 1 MG/ML Injection intramuscularly 0.3 mg once Re-initiate treatment only upon physician approval. 2024 active 07/22 Oxaliplatin IV intravenously 180.0 mg once Not compatible with NS.Oxaliplati n is an irritant. 2024 active 07/22 fluorouracil 50 MG/ML Injectable Solution intravenously 850.0 mg once 2024 active 07/22 granisetron 1 MG/ML Injectable Solution intravenously 1000.0 mcg once 2024 active 07/22 diphenhydramine hydrochloride 0.5 MG/ML Injectable Solution intravenously 50.0 mg Re-initiate treatment only upon physician approval. 2024 active 07/22 famotidine 10 MG/ML Injectable Solution intravenously 20.0 mg Re-initiate treatment only upon physician approval. 2024 active 07/22 methylprednisol one 2000 MG Injection intravenously 125.0 mg Re-initiate treatment only upon physician approval. 2024 active 07/08 1 ML epinephrine 1 MG/ML Injection intramuscularly 0.3 mg once Re-initiate treatment only upon physician approval. 2024 active 07/08 Solu-Cortef intravenously 100.0 mg Re-initiate treatment only upon physician approval. 2024 active 07/08 leucovorin 50 MG Injection intravenously 850.0 mg once Use 350 mg/m2 for bile duct and gallbladder cancers. Dilute in NS or D5W. 2024 active 07/08 Diphenhydramine IV intravenously 50.0 mg Re-initiate treatment only upon physician approval. 2024 active 07/08 granisetron 1 MG/ML Injectable Solution intravenously 1000.0 mcg once 2024 active 07/08 dexamethasone phosphate 4 MG/ML Injectable Solution intravenously 10.0 mg once 2024 active 07/08 fluorouracil 50 MG/ML Injectable Solution intravenously 850.0 mg once 2024 active 07/08 fluorouracil 50 MG/ML Injectable Solution via continuous infusion 5000.0 mg once TOTAL CIV CYCLE DOSE = 2400 mg/m2 CIV over 46 hours. Patient to be seen for a pump disconnect on Day 3. Refer to drug stability guidelines. 2024 active 07/08 methylprednisol one 2000 MG Injection intravenously 125.0 mg Re-initiate treatment only upon physician approval. 2024 active 07/08 famotidine 10 MG/ML Injectable Solution intravenously 20.0 mg Re-initiate treatment only upon physician approval. 2024 active 07/08 diphenhydramine hydrochloride 0.5 MG/ML Injectable Solution intravenously 50.0 mg Re-initiate treatment only upon physician approval. 2024 active 07/08 hydrocortisone 100 MG Injection intravenously 100.0 mg Re-initiate treatment only upon physician approval. 2024 active 07/08 Solu-Medrol intravenously 125.0 mg Re-initiate treatment only upon physician approval. 2024 active 07/08 5 ML zoledronic acid 0.8 MG/ML Injection intravenously 4.0 mg once 2024 active 07/08 Oxaliplatin IV intravenously 180.0 mg once Not compatible with NS.Oxaliplati n is an irritant. 2024 active 06/24 fluorouracil 50 MG/ML Injectable Solution intravenously 850.0 mg once 2024 active 06/24 hydrocortisone 100 MG Injection intravenously 100.0 mg Re-initiate treatment only upon physician approval. 2024 active 06/24 1 ML epinephrine 1 MG/ML Injection intramuscularly 0.3 mg once Re-initiate treatment only upon physician approval. 2024 active 06/24 dexamethasone phosphate 4 MG/ML Injectable Solution intravenously 10.0 mg once 2024 active 06/24 diphenhydramine hydrochloride 0.5 MG/ML Injectable Solution intravenously 50.0 mg Re-initiate treatment only upon physician approval. 2024 active 06/24 fluorouracil 50 MG/ML Injectable Solution via continuous infusion 5000.0 mg once TOTAL CIV CYCLE DOSE = 2400 mg/m2 CIV over 46 hours. Patient to be seen for a pump disconnect on Day 3. Refer to drug stability guidelines. 2024 active 06/24 Oxaliplatin IV intravenously 180.0 mg once Not compatible with NS.Oxaliplati n is an irritant. 2024 active 06/24 methylprednisol one 2000 MG Injection intravenously 125.0 mg Re-initiate treatment only upon physician approval. 2024 active 06/24 famotidine 10 MG/ML Injectable Solution intravenously 20.0 mg Re-initiate treatment only upon physician approval. 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 Dilute in NS or D5W. 2024 active 06/24 granisetron 1 MG/ML Injectable Solution intravenously 1000.0 mcg once 2024 active 06/10 leucovorin 50 MG Injection intravenously 850.0 mg once Use 350 mg/m2 for bile duct and gallbladder cancers. Dilute in NS or D5W. 2024 active 06/10 granisetron 1 MG/ML Injectable Solution intravenously 1000.0 mcg once 2024 active 06/10 5 ML zoledronic acid 0.8 MG/ML Injection intravenously 4.0 mg once 2024 active 06/10 Solu-Medrol intravenously 125.0 mg Re-initiate treatment only upon physician approval. 2024 active 06/10 Oxaliplatin IV intravenously 180.0 mg once Not compatible with NS.Oxaliplati n is an irritant. 2024 active 06/10 dexamethasone phosphate 4 MG/ML Injectable Solution intravenously 10.0 mg once 2024 active 06/10 diphenhydramine hydrochloride 0.5 MG/ML Injectable Solution intravenously 50.0 mg Re-initiate treatment only upon physician approval. 2024 active 06/10 famotidine 10 MG/ML Injectable Solution intravenously 20.0 mg Re-initiate treatment only upon physician approval. 2024 active 06/10 Diphenhydramine IV intravenously 50.0 mg Re-initiate treatment only upon physician approval. 2024 active 06/10 fluorouracil 50 MG/ML Injectable Solution intravenously 850.0 mg once 2024 active 06/10 Solu-Cortef intravenously 100.0 mg Re-initiate treatment only upon physician approval. 2024 active 06/10 methylprednisol one 2000 MG Injection intravenously 125.0 mg Re-initiate treatment only upon physician approval. 2024 active 06/10 hydrocortisone 100 MG Injection intravenously 100.0 mg Re-initiate treatment only upon physician approval. 2024 active 06/10 1 ML epinephrine 1 MG/ML Injection intramuscularly 0.3 mg once Re-initiate treatment only upon physician approval. 2024 active 06/10 fluorouracil 50 MG/ML Injectable Solution via continuous infusion 5000.0 mg once TOTAL CIV CYCLE DOSE = 2400 mg/m2 CIV over 46 hours. Patient to be seen for a pump disconnect on Day 3. Refer to drug stability guidelines. 2024 active 05/27 diphenhydramine hydrochloride 0.5 MG/ML Injectable Solution intravenously 50.0 mg Re-initiate treatment only upon physician approval. 2024 active 05/27 leucovorin 50 MG Injection intravenously 850.0 mg once Use 350 mg/m2 for bile duct and gallbladder cancers. Dilute in NS or D5W. 2024 active 05/27 methylprednisol one 2000 MG Injection intravenously 125.0 mg Re-initiate treatment only upon physician approval. 2024 active 05/27 hydrocortisone 100 MG Injection intravenously 100.0 mg Re-initiate treatment only upon physician approval. 2024 active 05/27 fluorouracil 50 MG/ML Injectable Solution intravenously 850.0 mg once 2024 active 05/27 famotidine 10 MG/ML Injectable Solution intravenously 20.0 mg Re-initiate treatment only upon physician approval. 2024 active 05/27 1 ML epinephrine 1 MG/ML Injection intramuscularly 0.3 mg once Re-initiate treatment only upon physician approval. 2024 active 05/27 fluorouracil 50 MG/ML Injectable Solution via continuous infusion 5000.0 mg once TOTAL CIV CYCLE DOSE = 2400 mg/m2 CIV over 46 hours. Patient to be seen for a pump disconnect on Day 3. Refer to drug stability guidelines. 2024 active 05/27 Oxaliplatin IV intravenously 180.0 mg once Not compatible with NS.Oxaliplati n is an irritant. 2024 active 05/27 granisetron 1 MG/ML Injectable Solution intravenously 1000.0 mcg once 2024 active 05/27 dexamethasone phosphate 4 MG/ML Injectable Solution intravenously 10.0 mg once 2024 active 05/13 diphenhydramine hydrochloride 0.5 MG/ML Injectable Solution intravenously 50.0 mg Re-initiate treatment only upon physician approval. 2024 active 05/13 5 ML zoledronic acid 0.8 MG/ML Injection intravenously 4.0 mg once 2024 active 05/13 dexamethasone phosphate 4 MG/ML Injectable Solution intravenously 10.0 mg once 2024 active 05/13 methylprednisol one 2000 MG Injection intravenously 125.0 mg Re-initiate treatment only upon physician approval. 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 Dilute in NS or D5W. 2024 active 05/13 famotidine 10 MG/ML Injectable Solution intravenously 20.0 mg Re-initiate treatment only upon physician approval. 2024 active 05/13 Solu-Medrol intravenously 125.0 mg Re-initiate treatment only upon physician approval. 2024 active 05/13 1 ML epinephrine 1 MG/ML Injection intramuscularly 0.3 mg once Re-initiate treatment only upon physician approval. 2024 active 05/13 Diphenhydramine IV intravenously 50.0 mg Re-initiate treatment only upon physician approval. 2024 active 05/13 granisetron 1 MG/ML Injectable Solution intravenously 1000.0 mcg once 2024 active 05/13 Solu-Cortef intravenously 100.0 mg Re-initiate treatment only upon physician approval. 2024 active 05/13 Oxaliplatin IV intravenously 180.0 mg once Not compatible with NS.Oxaliplati n is an irritant. 2024 active 05/13 fluorouracil 50 MG/ML Injectable Solution intravenously 850.0 mg once 2024 active 05/13 fluorouracil 50 MG/ML Injectable Solution via continuous infusion 5000.0 mg once TOTAL CIV CYCLE DOSE = 2400 mg/m2 CIV over 46 hours. Patient to be seen for a pump disconnect on Day 3. Refer to drug stability guidelines. 2024 active 05/13 hydrocortisone 100 MG Injection intravenously 100.0 mg Re-initiate treatment only upon physician approval. 2024 active 04/29 fluorouracil 50 MG/ML Injectable Solution via continuous infusion 5000.0 mg once TOTAL CIV CYCLE DOSE = 2400 mg/m2 CIV over 46 hours. Patient to be seen for a pump disconnect on Day 3. Refer to drug stability guidelines. 2024 active 04/29 Oxaliplatin IV intravenously 180.0 mg once Not compatible with NS.Oxaliplati n is an irritant. 2024 active 04/29 1 ML epinephrine 1 MG/ML Injection intramuscularly 0.3 mg once Re-initiate treatment only upon physician approval. 2024 active 04/29 fluorouracil 50 MG/ML Injectable Solution intravenously 850.0 mg once 2024 active 04/29 famotidine 10 MG/ML Injectable Solution intravenously 20.0 mg Re-initiate treatment only upon physician approval. 2024 active 04/29 leucovorin 50 MG Injection intravenously 850.0 mg once Use 350 mg/m2 for bile duct and gallbladder cancers. Dilute in NS or D5W. 2024 active 04/29 diphenhydramine hydrochloride 0.5 MG/ML Injectable Solution intravenously 50.0 mg Re-initiate treatment only upon physician approval. 2024 active 04/29 methylprednisol one 2000 MG Injection intravenously 125.0 mg Re-initiate treatment only upon physician approval. 2024 active 04/29 dexamethasone phosphate 4 MG/ML Injectable Solution intravenously 10.0 mg once 2024 active 04/29 granisetron 1 MG/ML Injectable Solution intravenously 1000.0 mcg once 2024 active 04/29 hydrocortisone 100 MG Injection intravenously 100.0 mg Re-initiate treatment only upon physician approval. 2024 active 04/15 Solu-Cortef intravenously 100.0 mg Re-initiate treatment only upon physician approval. 2024 active 04/15 leucovorin 50 MG Injection intravenously 850.0 mg once Use 350 mg/m2 for bile duct and gallbladder cancers. Dilute in NS or D5W. 2024 active 04/15 Solu-Medrol intravenously 125.0 mg Re-initiate treatment only upon physician approval. 2024 active 04/15 Diphenhydramine IV intravenously 50.0 mg Re-initiate treatment only upon physician approval. 2024 active 04/15 dexamethasone phosphate 4 MG/ML Injectable Solution intravenously 10.0 mg once 2024 active 04/15 fluorouracil 50 MG/ML Injectable Solution via continuous infusion 5000.0 mg once TOTAL CIV CYCLE DOSE = 2400 mg/m2 CIV over 46 hours. Patient to be seen for a pump disconnect on Day 3. Refer to drug stability guidelines. 2024 active 04/15 diphenhydramine hydrochloride 0.5 MG/ML Injectable Solution intravenously 50.0 mg Re-initiate treatment only upon physician approval. 2024 active 04/15 granisetron 1 MG/ML Injectable Solution intravenously 1000.0 mcg once 2024 active 04/15 Oxaliplatin IV intravenously 180.0 mg once Not compatible with NS.Oxaliplati n is an irritant. 2024 active 04/15 5 ML zoledronic acid 0.8 MG/ML Injection intravenously 4.0 mg once 2024 active 04/15 1 ML epinephrine 1 MG/ML Injection intramuscularly 0.3 mg once Re-initiate treatment only upon physician approval. 2024 active 04/15 famotidine 10 MG/ML Injectable Solution intravenously 20.0 mg Re-initiate treatment only upon physician approval. 2024 active 04/15 fluorouracil 50 MG/ML Injectable Solution intravenously 850.0 mg once 2024 active 04/15 hydrocortisone 100 MG Injection intravenously 100.0 mg Re-initiate treatment only upon physician approval. 2024 active 04/15 methylprednisol one 2000 MG Injection intravenously 125.0 mg Re-initiate treatment only upon physician approval. 2024 active 04/01 diphenhydramine hydrochloride 0.5 MG/ML Injectable Solution intravenously 50.0 mg Re-initiate treatment only upon physician approval. 2024 active 04/01 fluorouracil 50 MG/ML Injectable Solution via continuous infusion 5000.0 mg once TOTAL CIV CYCLE DOSE = 2400 mg/m2 CIV over 46 hours. Patient to be seen for a pump disconnect on Day 3. Refer to drug stability guidelines. 2024 active 04/01 fluorouracil 50 MG/ML Injectable Solution intravenously 850.0 mg once 2024 active 04/01 hydrocortisone 100 MG Injection intravenously 100.0 mg Re-initiate treatment only upon physician approval. 2024 active 04/01 dexamethasone phosphate 4 MG/ML Injectable Solution intravenously 10.0 mg once 2024 active 04/01 granisetron 1 MG/ML Injectable Solution intravenously 1000.0 mcg once 2024 active 04/01 leucovorin 50 MG Injection intravenously 850.0 mg once Use 350 mg/m2 for bile duct and gallbladder cancers. Dilute in NS or D5W. 2024 active 04/01 Oxaliplatin IV intravenously 180.0 mg once Not compatible with NS.Oxaliplati n is an irritant. 2024 active 04/01 1 ML epinephrine 1 MG/ML Injection intramuscularly 0.3 mg once Re-initiate treatment only upon physician approval. 2024 active 04/01 methylprednisol one 2000 MG Injection intravenously 125.0 mg Re-initiate treatment only upon physician approval. 2024 active 04/01 famotidine 10 MG/ML Injectable Solution intravenously 20.0 mg Re-initiate treatment only upon physician approval. 2024 active 03/18 Solu-Medrol intravenously 125.0 mg Re-initiate treatment only upon physician approval. 2024 active 03/18 famotidine 10 MG/ML Injectable Solution intravenously 20.0 mg Re-initiate treatment only upon physician approval. 2024 active 03/18 hydrocortisone 100 MG Injection intravenously 100.0 mg Re-initiate treatment only upon physician approval. 2024 active 03/18 1 ML epinephrine 1 MG/ML Injection intramuscularly 0.3 mg once Re-initiate treatment only upon physician approval. 2024 active 03/18 methylprednisol one 2000 MG Injection intravenously 125.0 mg Re-initiate treatment only upon physician approval. 2024 active 03/18 diphenhydramine hydrochloride 0.5 MG/ML Injectable Solution intravenously 50.0 mg Re-initiate treatment only upon physician approval. 2024 active 03/18 Solu-Cortef intravenously 100.0 mg Re-initiate treatment only upon physician approval. 2024 active 03/18 atropine sulfate 0.025 MG / diphenoxylate hydrochloride 2.5 MG Oral Tablet [Lomotil] orally 2.5 mg 4 times per day 2024 active 03/18 Diphenhydramine IV intravenously 50.0 mg Re-initiate treatment only upon physician approval. 2024 active 03/06 famotidine 10 MG/ML Injectable Solution intravenously 20.0 mg Re-initiate treatment only upon physician approval. 2024 active 03/04 hydrocortisone 100 MG Injection intravenously 100.0 mg Re-initiate treatment only upon physician approval. 2024 active 03/04 celecoxib 100 MG Oral Capsule orally 1.0 capsule 2 times per day 2024 active 03/04 famotidine 10 MG/ML Injectable Solution intravenously 20.0 mg Re-initiate treatment only upon physician approval. 2024 active 03/04 methylprednisol one 2000 MG Injection intravenously 125.0 mg Re-initiate treatment only upon physician approval. 2024 active 03/04 1 ML epinephrine 1 MG/ML Injection intramuscularly 0.3 mg once Re-initiate treatment only upon physician approval. 2024 active 03/04 diphenhydramine hydrochloride 0.5 MG/ML Injectable Solution intravenously 50.0 mg Re-initiate treatment only upon physician approval. 2024 active 03/03 ondansetron 4 MG Oral Tablet orally 1.0 tabs every 6 to 8 hours 2024 active 03/03 oxycodone hydrochloride 5 MG Oral Tablet orally 1.0 tablet every 4 to 6 hours 2024 active 03/03 methadone hydrochloride 10 MG Oral Tablet orally 1.0 tablet 1 to 3 times daily 2024 active 02/18 hydrocortisone 100 MG Injection intravenously 100.0 mg Re-initiate treatment only upon physician approval. 2024 active 02/18 1 ML epinephrine 1 MG/ML Injection intramuscularly 0.3 mg once Re-initiate treatment only upon physician approval. 2024 active 02/18 diphenhydramine hydrochloride 0.5 MG/ML Injectable Solution intravenously 50.0 mg Re-initiate treatment only upon physician approval. 2024 active 02/18 famotidine 10 MG/ML Injectable Solution intravenously 20.0 mg Re-initiate treatment only upon physician approval. 2024 active 02/18 methylprednisol one 2000 MG Injection intravenously 125.0 mg Re-initiate treatment only upon physician approval. 2024 active 02/18 prochlorperazin e 10 MG Oral Tablet orally 1.0 tablet every 6 hours 2024 active 02/17 oxycodone hydrochloride 5 MG Oral Tablet orally 1.0 tablet every 4 to 6 hours 2024 active 02/11 oxycodone hydrochloride 5 MG Oral Tablet orally 1.0 tablet every 4 to 6 hours 2024 active Problems Diagnosis Status Date of Diagnosis Resolution Date Rectal cancer Active Bone metastasis Active Vital Signs Date Type Value 03/04/2025 Pain Scale 0.00 03/04/2025 Body Temperature 97.30 03/04/2025 BSA 2.14 03/04/2025 BMI 35.71 03/04/2025 Height 67.00 03/04/2025 Weight 228.00 03/04/2025 Intravascular Systolic 132 03/04/2025 Intravascular Diastolic 86 03/04/2025 Heart Beat 86.00 03/18/2025 Pain Scale 0.00 03/18/2025 BMI 35.02 03/18/2025 Height 67.00 03/18/2025 Weight 223.60 03/18/2025 Intravascular Systolic 130 03/18/2025 Intravascular Diastolic 84 03/18/2025 Heart Beat 75.00 03/18/2025 Body Temperature 97.50 03/18/2025 BSA 2.12
--- OUTSIDE RECORDS SUMMARY | 2025-04-13 13:41 | XMS_ITS ---
Author Name Interface, [email or web address] lity Address [address] [place] [address] [facility] Address [address] [place] [id number] Allergies and Adverse Reactions Medication/Group Name Reaction Severity Date azithromycin 02/18/2025 Plan Date Type Value 04/02/2025 APPOINTMENT TELEMED (PHONE C ALL ONLY) 04/01/2025 APPOINTMENT CHEMO 15 MIN 03/18/2025 APPOINTMENT CHEMO 15 MIN 04/01/2025 LABORDER MRI pelvis w/ an d w/o contrast Reason for Visit TELEMED (PHONE CALL ONLY) Diagnostic Results Date Type Test Units Lower Limit Upper Limit Result Flag Comments Status Ordered By Specimen Source Lab Address 03/18 Gluco se [Mass /volu me] in Serum or Plasm a 74.0 106.0 95 [facility], [address] [place] [address] 03/18 BUN 7.0 17.0 10 [facility], [address] [place] [address] 03/18 Creat inine [Mass /volu me] in Serum or Plasm a 0.7 1.2 0.8 [facility], [address] [place] [id number] [place] [address] 03/18 Sodiu m 137.0 145.0 139 [facility], [address] [place] [id number] [place] [address] 03/18 Potas sium [Mole s/vol ume] in Serum or Plasm a 3.5 5.1 3.0 [facility], [address] [place] [address] [facility] 03/18 Chlor ronny 98.0 107.0 105 [facility], [facility], [address] [place] [address] [facility] 03/18 Carbo n dioxi de, total [Mole s/vol ume] in Serum or Plasm a 22.0 30.0 29 [facility], [facility], [address] [place] [address] [facility] 03/18 Calci um [Mass /volu me] in Blood 8.4 10.2 8.6 [facility], [facility], [address] [place] [address] [facility] 03/18 Anion gap 4.0 12.0 5 [facility], [facility], [address] [place] [address] [facility] 03/18 Urea nitro gen/C reati nine [Mass Ratio ] in Blood 12.0 20.0 12.5 [facility], [address] [facility] [address] [facility] 03/18 Sasha al calcaguila candelario , mOs/k g 261.0 280.0 276 [facility], [facility], [address] [facility] [address] [facility] 03/18 Glome rular filtr ation rate/ 1.73 sq M.pre dicte d [Volu me Rate/ Area] in Serum , Plasm a or Blood by Creat inine -base d formu la (CKD- EPI) 90.0 120.0 94 >=90 [id number]- 89 Mildly Decreased 45-59 Mildly to Moderatel y Decreased 30-44 Moderatel y to Severely Decreased 15-29 Severely Decreased <15 Kidney Failure [facility], [facility], [address] [place] [address] [facility] 03/18 Bilir ubin, total 0.2 1.3 0.30 [facility], [address] [place] [address] [facility] 03/18 Aspar diana amino trans feras e [Enzy matic activ ity/v olume ] in Serum or Plasm a 14.0 36.0 31 [facility], [address] [place] [address] [facility] 03/18 Darvin ne amino trans feras e [Enzy matic activ ity/v olume ] in Serum or Plasm a 0.0 34.0 22 [facility], [address] [place] [address] [facility] 03/18 Alkal ine phosp hatas e [Enzy matic activ ity/v olume ] in Serum or Plasm a 38.0 126.0 114 [facility] [facility], [address] [place] [address] [facility] 03/18 Prote in [Mass /volu me] in Serum or Plasm a 6.3 8.2 6.7 [facility], [address] [place] [address] [facility] 03/18 Album in [Mass /volu me] in Serum or Plasm a 3.5 5.0 3.8 [facility], [address] [place] [address] [facility] 03/18 Globu lesli 2.2 4.2 2.9 [facility], [facility], [address] [place] [address] [facility] 03/18 A/G ratio 1.1 2.2 1.30 [facility], [facility], [address] [place] [address] [facility] 03/18 MPV 7.4 10.4 9.5 [facility], [facility], [address] [place] [address] [facility] 03/18 Segme nted neutr ophil s/100 leuko cytes in Blood by Autom ated count 43.0 65.0 55.2 [facility]vin [facility], [facility], [address] [place] [address] [facility] 03/18 Lymph ocyte s/100 leuko cytes in Blood by Flow cytom etry (FC) 20.5 45.5 31.6 [facility], [facility], [address] [place] [address] [facility] 03/18 MO % 5.5 11.7 8.0 [facility], [facility], [address] [place] [address] [facility] 03/18 EO % 0.9 2.9 4.0 High Malvindes Pascual [facility], [facility], [address] [place] [address] [facility] 03/18 BA % 0.2 1.0 1.0 [place] [facility] Malvindes Pascual [facility], [facility], [address] [place] [address] [facility] 03/18 Neutr ophil s [#/vo lume] in Blood by Autom ated count 2.2 4.8 2.22 [place] [facility] Malvindes Pascual [facility], [facility], [address] [place] [address] [facility] 03/18 Lymph ocyte s [#/vo lume] in Blood by Autom ated count 1.3 2.9 1.27 [facility], [facility], [address] [place] [address] [facility] 03/18 Monoc ytes [#/vo lume] in Blood by Autom ated count 0.3 0.8 0.32 [facility], [facility], [address] [place] [address] [facility] 03/18 Eosin ophil s [#/vo lume] in Blood by Autom ated count 0.0 0.1 0.16 High [facility], [address] [place] [address] [facility] 03/18 Basop hils [#/vo lume] in Blood by Autom ated count 0.0 0.1 0.04 [facility], [facility], [address] [place] [address] [facility] 03/18 Leuko cytes [#/vo lume] in Blood by Autom ated count 4.8 10.8 4.0 Low [facility], [facility], [address] [place] [address] [facility] 03/18 Eryth rocyt es [#/vo lume] in Blood by Autom ated count 4.2 5.4 3.88 Low [facility], [facility], [address] [place] [address] [facility] 03/18 Hemog lobin [Mass /volu me] in Blood 12.0 16.0 9.6 Low [facility], [address] [place] [address] [facility] 03/18 HCT 37.0 47.0 30.4 Low [facility], [facility], [address] [facility] [address] [facility] 03/18 MCV 81.0 99.0 78.4 Low [facility], [facility], [address] [place] [address] [facility] 03/18 MCH 27.0 31.0 24.7 Low Malvin Pascual [facility], [facility], [address] [place] [address] [facility] 03/18 MCHC [Mass /volu me] by Autom ated count 32.0 36.[address] 31[address] [facility], [facility], [address] [place] [address] [facility] 03/18 Eryth rocyt e distr ibuti on width [Rati o] by Autom ated count 11.5 15.[address] 19.[address] [facility], [facility], [address] [place] [address] [facility] 03/18 Plate lets [#/vo lume] in Blood by Autom ated count 130.0 400.0 205 [facility], [facility], [address] [place] [address] [facility] 04/02 MRILU MB*- [address] [place] [address] Radiolo gy ReportP atient: FISH MAURER FComple letha: [phone] Date of Service : 5Acct #: [id number] #: [id number]/ AGE/SEX :1979 / 44 / FRoom/B ed: Locatio n: [place] RADAcce ssion: [id number] : MRI Pelvis W W/O Cont Reason: RECTAL CAOrder ing Provide r: Samara,At if Huseyin pa Provide r: Samara,At if [facility]: Indira Coombs; Abigail blunt MD, Remy Pascual MD, [facility] ort Number: [id number] atient total CT exams last year 5MRI [...] all CT images are acquire d using automat edexpos ure control .End of ReportD ictated by: Abigail blunt MD, Remy Dorsey 5 1523Tra nscript ionist: Remy Hayes i, M.D. 5 1523Sig tami by: Remy Curry MD 5 1531 [facility] Date Name Route Dose Frequency Instructions [...] metastasis Active Vital Signs Date Type Value 03/18/2025 Pain Scale 0.00 03/18/2025 Body Temperature 97.50 03/18/2025 Heart Beat 75.00 03/18/2025 BSA 2.12 03/18/2025 Weight 223.60 03/18/2025 Height 67.00 03/18/2025 BMI 35.02 03/18/2025 Intravascular Systolic 130 03/18/2025 Intravascular Diastolic 84
--- OUTSIDE RECORDS SUMMARY | 2025-04-13 13:42 | XMS_ITS | CCD ---
Author Name Interface, [id number] lity Address [address] [place] [address] Organization [facility] Address [facility] [place] [address] Care Team Providers Care Vinyl Hanger Name Role Phone Samara PEREZ, Malvin Unavailable Unavailable Allergies and Adverse Reactions Medication/Group Name Reaction Severity Date azithromycin 02/18/2025 Care Plan Date Type Value 04/02/2025 APPOINTMENT TELEMED (PHONE C ALL ONLY) 04/01/2025 APPOINTMENT CHEMO 15 MIN 03/18/2025 APPOINTMENT CHEMO 15 MIN 03/13/2025 APPOINTMENT CHEMO LAB CHAIR 03/06/2025 APPOINTMENT BLOOD TRANSFUSIO N 03/04/2025 APPOINTMENT CHEMO 15 MIN 03/04/2025 APPOINTMENT ONC FOLLOW-UP 02/26/2025 APPOINTMENT TELEMED (PHONE C ALL ONLY) 02/18/2025 APPOINTMENT CHEMO 15 MIN 02/17/2025 APPOINTMENT ONC FOLLOW-UP 02/11/2025 APPOINTMENT TELEMED (PHONE C ALL ONLY) 02/04/2025 APPOINTMENT NEW PATIENT 02/13/[address] abdomen/pelvi s w/ contrast 02/13/2025 LABORDER MRI brain w/ & w /o contrast 02/26/2025 LABORDER CBC w/ auto diff 02/26/2025 LABORDER CMP 04/01/2025 LABORDER MRI pelvis w/ an d w/o contrast Reason for Visit TELEMED (PHONE CALL ONLY) Encounters Date Name 03/18/2025 Rectal cancer 03/18/2025 CHEMO 15 MIN Diagnostic Results Date Type Test Units Lower Limit Upper Limit Result Flag Comments Status Ordered By Specimen Source Lab Address 02/04 Unbou nd iron capac ity 419 Malvin Samara Source, Unspecifi ed [facility], [address] [place] [address] Sebastien Kaur 02/04 Iron, % satur ation 8 Malvin Pascual Source, Unspecifi ed [facility], [address] [facility] [place] [address] [facility] 02/04 Iron [Mass /volu me] in Serum or Plasm a 37.0 170.0 38 Rosetta l Malvin Pascual Source, Unspecifi ed [facility], [address] [facility] [place] [address] [facility] 02/04 Iron lina ng capac ity [Mass /volu me] in Serum or Plasm a 265.0 497.0 457 Rosetta l [facility] Unspecifi ed [facility], [address] [facility] [place] [address] [facility] 02/13 CTACH EST [address] [address] [phone] Radiolo gy ReportP atient: FISH MUARER leted: 5 1030 Date of Service : 5Acct #: [id number] #: [id number]/ AGE/SEX :05/18/ 1979 / 44 / FRoom/B ed: Locatio n: CTAcces master: [id number] : CT Abd/Pel vis W Contras t Reason: COLON CANCERO rdering Provide r: Samara,At [facility] Provide r: Samara,At [facility]: Indira Coombs; Samara PEREZ, [facility]; Mayra PEREZ, [facility] port Number: [id number] atient total CT exams last year 3CT Abd/Pel vis W Contras tHISTOR Y: COLON CANCERC OMPARIS ON: CT abdomen and pelvis 01/30/20 23 and PET/CT fusion scan 01/04/20 25TECHN IQUE: Multiph asic CT study of the abdomen and pelvis is perform ed with 3 mmthick axial mages obtaine d with IV contras t enhance ment. Oral contras t is alsoadm inister ed for this study. Coronal and sagitta l multipl festus reconst ruction sobtain ed.FIND INGS: Multipl e nodules are seen in the right lower lung. There is a 3.6 cmnodul e in the left lower lung which is the largest lung nodule identif ied. Priorch olecyst ectomy noted. No hepatic mass identif ied. No splenic mass or splenic enlarge ment seen. No pancrea tic mass identif ied. There is a 14 mm x 6 mm rightad renal nodule which was not well seen on the prior PET/CT study but isconce rning for metasta sis. The left adrenal gland is normal. No renal mass orhydro nephros is changes seen on the right or left. There is no aneurys m of theabdo yadira aorta. No enlarge d retrope ritonea l lymph nodes identif ied. There iscircu mferent ial thicken ing in the wall of the rectum near the rectosi gmoidju nction. There is strandi ng in the perirec johnnie fat as well as small nodes in theperi rectal fat compati ble with colorec johnnie maligna ncy. No free air or free fluidse en. The uterus is absent. The urinary bladder is largely contrac letha. There isnonsp ecific thicken ing of the wall the bladder . No destruc tive skeleta l lesions identif ied.IMP RESSION :1. Bilater al lower lung nodules are present compati ble with pulmona rymetas tasis in this patient with a history of colon cancer. 2. Abnorma l thicken ing in the wall of the rectum near the junctio n with thesigm oid colon compati ble with colorec johnnie maligna ncy. There is strandi ng in theperi rectal fat as well as a 7 mm node in the perirec johnnie fat to the left of therect um compati ble with venu metasta sis in the perirec johnnie fat.3. There is a 14 mm x 6 mm right adrenal nodule concern ing for metasta sis.Per protoco l 95 CC ISOVUE 300 injecte dAll radiolo gy exams are perform ed followi ng ALARA, all CT images are acquire d using automat edexpos ure control .End of ReportD ictated by: Ronaldo Nunez MD 5 [id number] nscript ionist: Ronaldo Nunez MD 5 1317Sig tami by: Mayra PEREZ, Ronaldo 5 1339 SCHEDUL ED [facility] 02/06 Alex allison ry repor t Alex allison ry repor t PDF See d FINAL [facility] [employer] , [address] [place] [address], [address] [place] [address] 03/04 PRBC, leuko cyte- reduc ed [id number] AN RC PRSMD TRFSD 5 1421 FINAL [facility] 03/04 Blood bank type and scree n panel ABO/R h AN CORRECT ED [facility], [address] [place] [address] 03/04 Blood bank type and scree n panel Antib yung scree n, qual NEGATIV E CORRECT ED [facility], [address] [facility] [place] [address] 03/18 MCV 81.0 99.0 78.4 Low Malvin Pascual Source, [facility], [address] [place] [address] [facility] 03/18 MO % 5.5 11.7 8.0 [facility], [address] [place] [address] [facility] 03/18 EO % 0.9 2.9 4.0 High Malvin Pascual Source, [facility], [address] [place] [address] [facility] 03/18 MPV 7.4 10.4 9.5 Rosetta l [facility], [facility], [address] [place] [address] [facility] 03/18 BA % 0.2 1.0 1.0 Rosetta l Malvin Pascual Source, [facility], [address] [place] [address] [facility] 03/18 Eosin ophil s [#/vo lume] in Blood by Autom ated count 0.0 0.1 0.16 High Malvin Pascual Source, [facility], [address] [facility] [address] [facility] 03/18 MCHC [Mass /volu me] by Autom ated count 32.0 36.0 31.6 Low [facility] [address] [place] [address] [facility] 03/18 Lymph ocyte s/100 leuko cytes in Blood by Flow cytom etry (FC) 20.5 45.5 31.6 [facility], [address] [place] [address] [facility] 03/18 HCT 37.0 47.0 30.4 Low Malvin Pascual [facility], [address] [place] [address] [facility] 03/18 Basop hils [#/vo lume] in Blood by Autom ated count 0.0 0.1 0.04 [facility] l [facility], [address] [place] [address] [facility] 03/18 Lymph ocyte s [#/vo lume] in Blood by Autom ated count 1.3 2.9 1.27 Low Malvin Pascual [facility], [facility], [address] [place] [address] [facility] 03/18 Hemog lobin [Mass /volu me] in Blood 12.0 16.0 9.6 Low Malvin Pascual [facility], [address] [place] [address] [facility] 03/18 Neutr ophil s [#/vo lume] in Blood by Autom ated count 2.2 4.8 2.22 Rosetta l Malvin Pascual [facility], [address] [place] [address] [place] [address] [facility] 03/18 Leuko cytes [#/vo lume] in Blood by Autom ated count 4.8 10.8 4.0 [facility], [facility], [address] [place] [address] [facility] 03/18 Monoc ytes [#/vo lume] in Blood by Autom ated count 0.3 0.8 0.32 [facility], [facility], [address] [place] [address] [facility] 03/18 Eryth rocyt es [#/vo lume] in Blood by Autom ated count 4.2 5.4 3.88 [facility], [facility], [address] [place] [address] [facility] 03/18 Plate lets [#/vo lume] in Blood by Autom ated count 130.0 400.0 205 [facility], [facility], [address] [place] [address] [facility] 03/18 Segme nted neutr ophil s/100 leuko cytes in Blood by Autom ated count 43.0 65.0 55.2 Rosetta l [facility], [facility], [address] [place] [address] [facility] 03/18 MCH 27.0 31.0 24.7 Low Malvin Pascual Source, [facility], [address] [place] [address] [facility] 03/18 Eryth rocyt e distr ibuti on width [Rati o] by Autom ated count 11.5 15.5 19.0 High [facility], [facility], [address] [place] [address] [facility] 04/02 MRILU MB*- [address] [place] [address] Radiolo gy ReportP atient: FISH MAURER letha: 5 0800 Date of Service : 5Acct #: [id number] #: [id number]/ AGE/SEX :1979 / 44 / FRoom/B ed: Locatio n: [place] RADAcce ssion: [id number] : MRI Pelvis W W/O Cont Reason: RECTAL CAOrder ing Provide r: [facility] Provide r: Samara,At if [facility]: Indira Coombs; Abigail blunt MD, [facility]; Samara PEREZ, AtifRep ort Number: [id number] atient total CT exams last year 5MRI [...] Hayes i, M.D. 5 1523Sig tami by: Abigail blunt MD, Remy Dorsey 5 1531 SCHEDUL ED [facility] 03/18 A/G ratio 1.1 2.2 1.30 Rosetta l [facility], [address] [place] [address] [place] [address] 03/18 Gluco se [Mass /volu me] in Serum or Plasm a 74.0 106.0 95 Rosetta l [facility], [address] [place] [address] [facility] 03/18 Alkal ine phosp hatas e [Enzy matic activ ity/v olume ] in Serum or Plasm a 38.0 126.0 114 Rosetta l [facility], [address] [place] [address] [facility] 03/18 Globu lesli 2.2 4.2 2.9 Rosetta l [facility], [address] [place] [address] [facility] 03/18 Creat inine [Mass /volu me] in Serum or Plasm a 0.7 1.2 0.8 Rosetta l [facility], [address] [place] [address] [place] [address] 03/18 Carbo n dioxi de, total [Mole s/vol ume] in Serum or Plasm a 22.0 30.0 29 Rosetta l [facility], [address] [place] [address] [facility] 03/18 Aspar diana amino trans feras e [Enzy matic activ ity/v olume ] in Serum or Plasm a 14.0 36.0 31 Rosetta l Malvin Pascual Source, [facility], [address] [place] [address] [facility] 03/18 Potas sium [Mole s/vol ume] in Serum or Plasm a 3.5 5.1 3.0 Low [facility], [facility], [address] [place] [address] [facility] 03/18 Bilir ubin, total 0.2 1.3 0.30 Rosetta l [facility], [facility], [address] [place] [address] [facility] 03/18 Urea nitro gen/C reati nine [Mass Ratio ] in Blood 12.0 20.0 12.5 Rosetta l [facility], [facility], [address] [place] [address] [facility] 03/18 Prote in [Mass /volu me] in Serum or Plasm a 6.3 8.2 6.7 Rosetta l [facility], [facility], [address] [place] [address] [facility] 03/18 kannan Mills , mOs/k g 261.0 280.0 276 Rosetta l [facility], [facility], [address] [place] [address] [facility] 03/18 Sodiu m 137.0 145.0 139 Rosetta l [facility] Pascual [facility], [facility], [address] [place] [address] [facility] 03/18 Darvin ne amino trans feras e [Enzy matic activ ity/v olume ] in Serum or Plasm a 0.0 34.0 22 Rosetta l [facility], [facility], [address] [facility] [place] [address] [facility] 03/18 Anion gap 4.0 12.0 5 Rosetta l [facility], [address] [facility] [place] [address] [facility] 03/18 Album in [Mass /volu me] in Serum or Plasm a 3.5 5.0 3.8 Rosetta l [facility], [facility], [address] [facility] [place] [address] [facility] 03/18 Chlor ronny 98.0 107.0 105 Rosetta l [facility], [address] [facility] [place] [address] [facility] 03/18 BUN 7.0 17.0 10 Rosetta l [facility], [facility], [address] [facility] [place] [address] [facility] 03/18 Glome rular filtr ation rate/ 1.73 sq M.pre dicte d [Volu me Rate/ Area] in Serum , Plasm a or Blood by Creat inine -base d formu la (CKD- EPI) 90.0 120.0 94 >=90 [id number] Mildly Decreased 45-59 Mildly to Moderatel y Decreased 30-44 Moderatel y to Severely Decreased 15-29 Severely Decreased <15 Kidney Failure [facility], [address] [facility] [place] [address] [facility] 03/18 Calci um [Mass /volu me] in Blood 8.4 10.2 8.6 Rosetta l [facility], [address] [place] [address] [facility] 02/04 Magy tin [Mass /volu me] in Serum or Plasm a by Immun oassa y 6.24 137.0 10.70 Rosetta l [facility], [address] [place] [address] [place] [address] [facility] 02/26 Immat ure granu locyt es [Pres ence] in Blood by Autom ated count 0.0 0.7 0.3 Rosetta l [facility] 02/26 Granu locyt es, immat ure, x 10^3/ uL (M) 0.0 0.06 0.03 Rosetta l [facility] 02/26 PFA - Epi plate let count 150.0 450.0 329 Rosetta l 1051, 02/26/25 [facility] 02/04 Vitam in B12 defic iency panel Vitam in B12 239.0 931.0 290.0 Rosetta l [facility], [address] [place] [address] [facility] 02/04 CEA panel Carci noemb ryoni c Ag [Mass /volu me] in Serum or Plasm a 0.0 3.0 91.40 High [facility], [address] [place] [address] [facility] Medications Administered Date Name Route Dose Frequency Instructions Start Date End Date Status 2024 fluorouracil 50 MG/ML Injectable Solution via continuous infusion 5000.0 mg once TOTAL CIV CYCLE DOSE = 2400 mg/m2 CIV over 46 hours. Patient to be seen for a pump disconnect on Day 3. Refer to drug stability guidelines. 2024 inactive 2024 fluorouracil 50 MG/ML Injectable Solution intravenously 850.0 mg once 03/18 inactive 2024 Oxaliplatin IV intravenously 180.0 mg once Not compatible with NS.Oxaliplati n is an irritant. 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 Dilute in NS or D5W. 03/18 inactive 2024 granisetron 1 MG/ML Injectable Solution intravenously 1000.0 mcg once 03/18 inactive 2024 dexamethasone phosphate 4 MG/ML Injectable Solution intravenously 10.0 mg once 03/18 inactive 2024 5 ML zoledronic acid 0.8 MG/ML Injection intravenously 4.0 mg once 03/18 inactive 2024 RBC, Leukopoor intravenously 1.0 units once 03/06 inactive 2024 fluorouracil 50 MG/ML Injectable Solution via continuous infusion 5000.0 mg once TOTAL CIV CYCLE DOSE = 2400 mg/m2 CIV over 46 hours. Patient to be seen for a pump disconnect on Day 3. Refer to drug stability guidelines. 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 Dilute in NS or D5W. 03/04 inactive 2024 Oxaliplatin IV intravenously 180.0 mg once Not compatible with NS.Oxaliplati n is an irritant. 03/04 inactive 2024 granisetron 1 MG/ML Injectable Solution intravenously 1000.0 mcg once 03/04 inactive 2024 dexamethasone phosphate 4 MG/ML Injectable Solution intravenously 10.0 mg once 03/04 inactive 2024 acetaminophen 325 MG Oral Capsule orally 2.0 capsule once 03/04 inactive 2024 fluorouracil 50 MG/ML Injectable Solution via continuous infusion 5000.0 mg once TOTAL CIV CYCLE DOSE = 2400 mg/m2 CIV over 46 hours. Patient to be seen for a pump disconnect on Day 3. Refer to drug stability guidelines. 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 Dilute in NS or D5W. 02/18 inactive 2024 Oxaliplatin IV intravenously 180.0 mg once Not compatible with NS.Oxaliplati n is an irritant. 02/18 inactive 2024 dexamethasone phosphate 4 MG/ML Injectable Solution intravenously 10.0 mg once 02/18 inactive 2024 granisetron 1 MG/ML Injectable Solution intravenously 1000.0 mcg once 02/18 inactive Medications Date Name Route Dose Frequency Instructions Start Date End Date Status Fluoxetine Oral daily a ctive Celecoxib Oral BID ac tive Zolpidem Oral Tablet hs active Clonazepam Oral daily PRN active Methocarbamol Oral QID PRN active 01/20 Diphenhydramine IV intravenously 50.0 mg Re-initiate treatment only upon physician approval. 2025 active 01/20 Solu-Medrol intravenously 125.0 mg Re-initiate treatment only upon physician approval. 2025 active 01/20 5 ML zoledronic acid 0.8 MG/ML Injection intravenously 4.0 mg once 2025 active 01/20 Solu-Cortef intravenously 100.0 mg Re-initiate treatment only upon physician approval. 2025 active 01/20 1 ML epinephrine 1 [...] intravenously 4.0 mg once 2025 active 12/23 Solu-Medrol intravenously 125.0 mg Re-initiate treatment only upon physician approval. 2025 active 12/23 Diphenhydramine IV intravenously 50.0 [...] Injection intravenously 4.0 mg once 2025 active 10/28 1 ML epinephrine 1 MG/ML Injection intramuscularly 0.3 mg once Re-initiate treatment only upon physician approval. 2025 active 10/28 Diphenhydramine IV intravenously 50.0 mg Re-initiate treatment only upon physician approval. 2025 active 09/30 famotidine 10 MG/ML Injectable Solution intravenously 20.0 mg Re-initiate treatment only upon physician approval. 2025 active 09/30 5 ML zoledronic acid 0.8 MG/ML Injection intravenously 4.0 mg once 2025 active 09/30 Solu-Medrol intravenously 125.0 mg Re-initiate treatment only upon physician approval. 2025 active 09/30 1 ML epinephrine 1 MG/ML Injection intramuscularly 0.3 mg once Re-initiate treatment only upon physician approval. 2025 active 09/30 Diphenhydramine IV intravenously 50.0 mg Re-initiate treatment only upon physician approval. 2025 active 09/30 Solu-Cortef intravenously 100.0 mg Re-initiate treatment only upon physician approval. 2025 active 09/02 5 ML zoledronic acid 0.8 MG/ML Injection intravenously 4.0 mg once 2024 active 09/02 famotidine 10 MG/ML Injectable Solution intravenously 20.0 mg Re-initiate treatment only upon physician approval. 2024 active 09/02 Diphenhydramine IV intravenously 50.0 mg Re-initiate treatment only upon physician approval. 2024 active 09/02 Solu-Cortef intravenously 100.0 mg Re-initiate treatment only upon physician approval. 2024 active 09/02 1 ML epinephrine 1 MG/ML Injection intramuscularly 0.3 mg once Re-initiate treatment only upon physician approval. 2024 active 09/02 Solu-Medrol intravenously 125.0 mg Re-initiate treatment only upon physician approval. 2024 active 08/05 famotidine 10 MG/ML Injectable Solution intravenously 20.0 mg Re-initiate treatment only upon physician approval. 2024 active 08/05 5 ML zoledronic acid 0.8 MG/ML Injection intravenously 4.0 mg once 2024 active 08/05 1 ML epinephrine 1 MG/ML Injection intramuscularly 0.3 mg once Re-initiate treatment only upon physician approval. 2024 active 08/05 Solu-Medrol intravenously 125.0 mg Re-initiate treatment only upon physician approval. 2024 active 08/05 Solu-Cortef intravenously 100.0 mg Re-initiate treatment only upon physician approval. 2024 active 08/05 Diphenhydramine IV intravenously 50.0 mg Re-initiate treatment only upon physician approval. 2024 active 07/22 fluorouracil 50 MG/ML Injectable Solution intravenously 850.0 mg once 2024 active 07/22 methylprednisol one 2000 MG Injection intravenously 125.0 mg Re-initiate treatment only upon physician approval. 2024 active 07/22 hydrocortisone 100 MG Injection intravenously 100.0 mg Re-initiate treatment only upon physician approval. 2024 active 07/22 1 ML epinephrine 1 MG/ML Injection intramuscularly 0.3 mg once Re-initiate treatment only upon physician approval. 2024 active 07/22 dexamethasone phosphate 4 MG/ML Injectable Solution intravenously 10.0 mg once 2024 active 07/22 famotidine 10 MG/ML Injectable Solution intravenously 20.0 mg Re-initiate treatment only upon physician approval. 2024 active 07/22 Oxaliplatin IV intravenously 180.0 mg once Not compatible with NS.Oxaliplati n is an irritant. 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 Dilute in NS or D5W. 2024 active 07/22 fluorouracil 50 MG/ML Injectable Solution via continuous infusion 5000.0 mg once TOTAL CIV CYCLE DOSE = 2400 mg/m2 CIV over 46 hours. Patient to be seen for a pump disconnect on Day 3. Refer to drug stability guidelines. 2024 active 07/22 diphenhydramine hydrochloride 0.5 MG/ML Injectable Solution intravenously 50.0 mg Re-initiate treatment only upon physician approval. 2024 active 07/22 granisetron 1 MG/ML Injectable Solution intravenously 1000.0 mcg once 2024 active 07/08 1 ML epinephrine 1 [...] only upon physician approval. 2024 active 07/08 Oxaliplatin IV intravenously 180.0 mg once Not compatible with NS.Oxaliplati n is an irritant. 2024 active 07/08 5 ML zoledronic acid 0.8 MG/ML Injection intravenously 4.0 mg once 2024 active 07/08 Solu-Medrol intravenously 125.0 mg Re-initiate treatment only upon physician approval. 2024 active 06/24 fluorouracil 50 MG/ML Injectable Solution via continuous infusion 5000.0 mg once TOTAL CIV CYCLE DOSE = 2400 mg/m2 CIV over 46 hours. Patient to be seen for a pump disconnect on Day 3. Refer to drug stability guidelines. 2024 active 06/24 granisetron 1 MG/ML Injectable Solution intravenously 1000.0 mcg once 2024 active 06/24 famotidine 10 MG/ML Injectable Solution intravenously 20.0 mg Re-initiate treatment only upon physician approval. 2024 active 06/24 methylprednisol one 2000 MG Injection intravenously 125.0 mg Re-initiate treatment only upon physician approval. 2024 active 06/24 1 ML epinephrine 1 MG/ML Injection intramuscularly 0.3 mg once Re-initiate treatment only upon physician approval. 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 Dilute in NS or D5W. 2024 active 06/24 Oxaliplatin IV intravenously 180.0 mg once Not compatible with NS.Oxaliplati n is an irritant. 2024 active 06/24 hydrocortisone 100 MG Injection intravenously 100.0 mg Re-initiate treatment only upon physician approval. 2024 active 06/24 diphenhydramine hydrochloride 0.5 MG/ML Injectable Solution intravenously 50.0 mg Re-initiate treatment only upon physician approval. 2024 active 06/24 fluorouracil 50 MG/ML Injectable Solution intravenously 850.0 mg once 2024 active 06/10 hydrocortisone 100 MG Injection intravenously 100.0 mg Re-initiate treatment only upon physician approval. 2024 active 06/10 granisetron 1 MG/ML Injectable Solution intravenously 1000.0 mcg once 2024 active 06/10 diphenhydramine hydrochloride 0.5 MG/ML Injectable Solution intravenously 50.0 mg Re-initiate treatment only upon physician approval. 2024 active 06/10 fluorouracil 50 MG/ML Injectable Solution intravenously 850.0 mg once 2024 active 06/10 Diphenhydramine IV intravenously 50.0 mg Re-initiate treatment only upon physician approval. 2024 active 06/10 fluorouracil 50 MG/ML Injectable Solution via continuous infusion 5000.0 mg once TOTAL CIV CYCLE DOSE = 2400 mg/m2 CIV over 46 hours. Patient to be seen for a pump disconnect on Day 3. Refer to drug stability guidelines. 2024 active 06/10 famotidine 10 MG/ML Injectable Solution intravenously 20.0 mg Re-initiate treatment only upon physician approval. 2024 active 06/10 Solu-Cortef intravenously 100.0 mg Re-initiate treatment only upon physician approval. 2024 active 06/10 Oxaliplatin IV intravenously 180.0 mg once Not compatible with NS.Oxaliplati n is an irritant. 2024 active 06/10 Solu-Medrol intravenously 125.0 mg Re-initiate treatment only upon physician approval. 2024 active 06/10 methylprednisol one 2000 MG Injection intravenously 125.0 mg Re-initiate treatment only upon physician approval. 2024 active 06/10 5 ML zoledronic acid 0.8 MG/ML Injection intravenously 4.0 mg once 2024 active 06/10 dexamethasone phosphate 4 MG/ML Injectable Solution intravenously 10.0 mg once 2024 active 06/10 1 ML epinephrine 1 MG/ML Injection intramuscularly 0.3 mg once Re-initiate treatment only upon physician approval. 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 Dilute in NS or D5W. 2024 active 05/27 dexamethasone phosphate 4 MG/ML Injectable Solution intravenously 10.0 mg once 2024 active 05/27 granisetron 1 MG/ML Injectable Solution intravenously 1000.0 mcg once 2024 active 05/27 Oxaliplatin IV intravenously 180.0 mg once Not compatible with NS.Oxaliplati n is an irritant. 2024 active 05/27 fluorouracil 50 MG/ML Injectable Solution via continuous infusion 5000.0 mg once TOTAL CIV CYCLE DOSE = 2400 mg/m2 CIV over 46 hours. Patient to be seen for a pump disconnect on Day 3. Refer to drug stability guidelines. 2024 active 05/27 1 ML epinephrine 1 MG/ML Injection intramuscularly 0.3 mg once Re-initiate treatment only upon physician approval. 2024 active 05/27 fluorouracil 50 MG/ML Injectable Solution intravenously 850.0 mg once 2024 active 05/27 hydrocortisone 100 MG Injection intravenously 100.0 mg Re-initiate treatment only upon physician approval. 2024 active 05/27 methylprednisol one 2000 MG Injection intravenously 125.0 mg Re-initiate treatment only upon physician approval. 2024 active 05/27 leucovorin 50 MG Injection intravenously 850.0 mg once Use 350 mg/m2 for bile duct and gallbladder cancers. Dilute in NS or D5W. 2024 active 05/27 diphenhydramine hydrochloride 0.5 MG/ML Injectable Solution intravenously 50.0 mg Re-initiate treatment only upon physician approval. 2024 active 05/27 famotidine 10 MG/ML Injectable Solution intravenously 20.0 mg Re-initiate treatment only upon physician approval. 2024 active 05/13 diphenhydramine hydrochloride 0.5 MG/ML Injectable Solution intravenously 50.0 mg Re-initiate treatment only upon physician approval. 2024 active 05/13 fluorouracil 50 MG/ML Injectable Solution intravenously 850.0 mg once 2024 active 05/13 methylprednisol one [...] intravenously 1000.0 mcg once 2024 active 05/13 hydrocortisone 100 MG Injection intravenously 100.0 mg Re-initiate treatment only upon physician approval. 2024 active 05/13 fluorouracil 50 MG/ML Injectable Solution via continuous infusion 5000.0 mg once TOTAL CIV CYCLE DOSE = 2400 mg/m2 CIV over 46 hours. Patient to be seen for a pump disconnect on Day 3. Refer to drug stability guidelines. 2024 active 05/13 5 ML zoledronic acid 0.8 MG/ML Injection intravenously 4.0 mg once 2024 active 05/13 Solu-Cortef intravenously 100.0 mg Re-initiate treatment only upon physician approval. 2024 active 05/13 Oxaliplatin IV intravenously 180.0 mg once Not compatible with NS.Oxaliplati n is an irritant. 2024 active 05/13 dexamethasone phosphate 4 MG/ML Injectable Solution intravenously 10.0 mg once 2024 active 04/29 fluorouracil 50 MG/ML Injectable [...] intravenously 850.0 mg once 2024 active 04/15 leucovorin 50 MG Injection intravenously 850.0 mg once Use 350 mg/m2 for bile duct and gallbladder cancers. Dilute in NS or D5W. 2024 active 04/15 famotidine 10 MG/ML Injectable Solution intravenously 20.0 mg Re-initiate treatment only upon physician approval. 2024 active 04/15 Oxaliplatin IV intravenously 180.0 mg once Not compatible with NS.Oxaliplati n is an irritant. 2024 active 04/15 Solu-Medrol intravenously 125.0 mg Re-initiate treatment only upon physician approval. 2024 active 04/15 Diphenhydramine IV intravenously 50.0 mg Re-initiate treatment only upon physician approval. 2024 active 04/15 diphenhydramine hydrochloride 0.5 MG/ML Injectable Solution intravenously 50.0 mg Re-initiate treatment only upon physician approval. 2024 active 04/15 dexamethasone phosphate 4 MG/ML Injectable Solution intravenously 10.0 mg once 2024 active 04/15 hydrocortisone 100 MG Injection intravenously 100.0 mg Re-initiate treatment only upon physician approval. 2024 active 04/15 5 ML zoledronic acid [...] to drug stability guidelines. 2024 active 04/15 granisetron 1 MG/ML Injectable Solution intravenously 1000.0 mcg once 2024 active 04/15 Solu-Cortef intravenously 100.0 mg Re-initiate treatment only upon physician approval. 2024 active 04/01 famotidine 10 MG/ML Injectable Solution intravenously 20.0 mg Re-initiate treatment only upon physician approval. 2024 active 04/01 dexamethasone phosphate 4 MG/ML Injectable Solution intravenously 10.0 mg once 2024 active 04/01 granisetron 1 MG/ML Injectable Solution intravenously 1000.0 mcg once 2024 active 04/01 diphenhydramine hydrochloride 0.5 MG/ML [...] only upon physician approval. 2024 active 04/01 1 ML epinephrine 1 MG/ML Injection intramuscularly 0.3 mg once Re-initiate treatment only upon physician approval. 2024 active 04/01 Oxaliplatin IV intravenously 180.0 mg once Not compatible with NS.Oxaliplati n is an irritant. 2024 active 04/01 leucovorin 50 MG Injection intravenously 850.0 mg once Use 350 mg/m2 for bile duct and gallbladder cancers. Dilute in NS or D5W. 2024 active 03/18 hydrocortisone 100 MG Injection intravenously 100.0 mg Re-initiate treatment only upon physician approval. 2024 active 03/18 Diphenhydramine IV intravenously 50.0 [...] 4 times per day 2024 active 03/18 1 ML epinephrine 1 [...] every 4 to 6 hours 2024 active Patient Education Date Type Value 02/18/2025 Colon and rectal cancer 02/18/2025 Colon Cancer t 02/18/2025 Fluorouracil (Sy stemic) 02/18/2025 Leucovorin Calci um 02/18/2025 Oxaliplatin Problems Diagnosis Status Date of Diagnosis Resolution Date Rectal cancer Active Colon cancer Inactive Bone metastasis Active Procedures Date Category Name Instructions Status 02/04/2025 Physician Order Venipuncture for blood test (procedure) Administered 02/12/2025 Physician Order RTC MD Ordered 02/13/[address] abdomen/pelvi s w/ contrast Initial staging: Colon cancer [facility] Complex Ordered 02/13/2025 Physician Order MRI brain w/ & w /o contrast Metastatic colon cancer, brain metastasis, headache Ordered 02/18/2025 Physician Order Blood draw via port Administered 03/04/2025 Physician Order Blood draw via port Administered 03/06/2025 Physician Order Transfusion of p acked red blood cells (procedure) D/C 03/13/2025 Physician Order Venipuncture for blood test (procedure) Administered 03/18/2025 Physician Order Blood draw via port Administered 04/01/2025 Physician Order MRI pelvis w/ an d w/o contrast Rectal cancer Ordered Social History Date Name Value 02/04/2025 Smoking Status Former smoker Sex Female Vital Signs Date Type Value 02/04/2025 Pain Scale 0.00 02/04/2025 Intravascular Systolic 168 02/04/2025 Intravascular Diastolic 111 02/04/2025 Heart Beat 92.00 02/04/2025 Weight 226.60 02/04/2025 Height 67.00 02/04/2025 BMI 35.49 02/04/2025 BSA 2.13 02/17/2025 Pain Scale 0.00 02/17/2025 Intravascular Systolic 122 02/17/2025 Intravascular Diastolic 88 02/17/2025 Heart Beat 94.00 02/17/2025 Weight 224.60 02/17/2025 BSA 2.12 02/17/2025 BMI 35.18 02/17/2025 Height 67.00 02/18/2025 BSA 2.13 02/18/2025 BMI 35.33 02/18/2025 Pain Scale 0.00 02/18/2025 Height 67.00 02/18/2025 Body Temperature 97.70 02/18/2025 Heart Beat 81.00 02/18/2025 Intravascular Systolic 124 02/18/2025 Intravascular Diastolic 86 02/18/2025 Weight 225.60 03/04/2025 Height 67.00 03/04/2025 BSA 2.14 03/04/2025 Weight 228.00 03/04/2025 Intravascular Systolic 132 03/04/2025 Intravascular Diastolic 86 03/04/2025 Heart Beat 86.00 03/04/2025 Body Temperature 97.30 03/04/2025 Pain Scale 0.00 03/04/2025 BMI 35.71 03/18/2025 Pain Scale 0.00 03/18/2025 Body Temperature 97.50 03/18/2025 Height 67.00 03/18/2025 Heart Beat 75.00 03/18/2025 Intravascular Systolic 130 03/18/2025 Intravascular Diastolic 84 03/18/2025 Weight 223.60 03/18/2025 BMI 35.02 03/18/2025 BSA 2.12
--- OUTSIDE RECORDS SUMMARY | 2025-04-13 13:42 | XMS_ITS | Patient Health Record ---
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 Indira Coombs MD Primary Care Provider Unavailab Lisa Graham Unavailable [phone] Allergies Allergen (clinical drug ingredient) Drug/Non Drug Allergy documented on EMR Reaction Allergy Type Onset Date Status Azithromycin , Cutaneous eruption (morphologic abnormality) , Drug Allergy Active Results Component Value Reference Range Notes Abdomen Acute Series-[id number] Reviewed date:05/21/2024 06:26:00 AM Interpretation: Performing Lab: Notes/Report: See Below For Report Abdomen Acute Series Read See Below For Report Abdomen Acute Series-[id number] Reviewed date:11/25/2024 06:04:18 AM Interpretation: Performing Lab: Notes/Report: See Below For Report Abdomen Acute Series Read See Below For Report Reason For Referral Reason chronic pain Diagnosis 1 Chronic pain syndrom e (G89.4) Referring Provider First Name Indira Referring Provider Last Name Malvin Referring Provider Speciality Family Med icine Referred Organization [facility] Referred Provider Giovanni Ovalle Referred Address [address],[place],[address], Referred Provider Specialty Pain Medicin e General Notes Yenni Tillman 2024 03:48:44 PM >ATC. Patient has calling restrictions so I was unable to leave a VM.Fredi Melody 01/16/2025 10:12:47 AM >Mailed NPPW Referral Priority Routine Medications Medication SIG (Take, Route, Fr equency, Duration) Notes Start Date End Date Status Ambien 10 MG Tablet 1 tablet at bedtime as needed Orally Once a day Active Omeprazole Active Reglan 10 MG Tablet 1 tablet Orally 1 da catarina; Duration: 1 days 07/28/2022 Active Social History Tobacco Use: Social History Observation Description Date Details (start date - stop date) Current Smoker NA - NA Social History Depression Screening Social Info Question Answer Notes PHQ-9 Little interest or pleasure in doing thin gs Several days Feeling down, depressed, or hopeless Nearly ever y day Trouble falling or staying asleep, or sleeping t oo much Nearly every day Feeling tired or having little energy More than half the days Poor appetite or overeating More than half the d ays Feeling bad about yourself, or that you are a failure, or have let yourself or your family down Several days Trouble concentrating on thi ngs, such as reading the newspaper or watching television Several days Moving or speaking so slowly that other people could have noticed. Or the opposite ? being so fidgety or restless that you have been moving around a lot more than usual Not at all Thoughts that you would be b julito off , or of hurting yourself in some way Not at all Total Score 13 Interpretation Moderate Depression Drugs/Alcohol: Social Info Question Answer Notes Drugs Have you used drugs other than those for medical reasons in the past 12 months? No Tobacco Use: Social Info Question Answer Notes xTobacco Use/Smoking Are you a current smoker Additional Details Category Social Info Options Details Drugs/Alcohol: Do you drink alcohol? No zzMigrated Social History Migrated Social History Smoking Status:Smokes tobacco daily (finding) Problems Problem Type SNOMED Code ICD Code Onset Dates Problem Status W/U Status Risk Notes Problem Chronic pain syndrome (814159511) Chronic pain syndrome (G89.4) Active confirmed Problem Fatty liver (K76.0) Active confirmed Encounters Encounter Location Date Provider Diagnosis [facility] Home [address] [place] [place] [address] 04/02/2025 Lisa Ovalle Chronic pain syndrome G89.4 Assessments Encounter Date Diagnosis (ICD Code) Assessment Notes Treatment Notes Treatment Clinical Notes Section Notes 04/02/2025 Chronic pain syndrome (ICD-10 - G89.4) Plan Of Treatment No Information Insurance Providers Payer Name Payer Address Payer Phone Subscriber Number Group Number Insured Name Patient Relationship to Insured Coverage Start Date Coverage End Date Joseph [address] [place] [id number] Emigdio Luli Self - patient is the insured Medical (General) History Medical History History ICD Code Problem:Acute thoracic back pain (disord er) , Status :: Active Problem:Anxiety (finding) , Status :: Ac tive Problem:Depressive disorder (disorder) , Status :: Active Problem:Obesity (disorder) , Status :: A ctive Problem:Tobacco user (finding) , Status :: Active Chicken Pox Pneumonia anemia chronic bladder infections hernia High Blood Pressure bronchitis anxiety fatty liver Surgical History Surgery Date(Month/Year) 2006 2002 1998
[2025-04-13 13:59] VITALS: BP 98/71; PULSE 108; RESP 16; TEMP 37.2; O2SAT 97
--- NOTE | 2025-04-13 14:36 | CTR_ITS ---
PROCEDURE INFORMATION: Exam: CT Abdomen And Pelvis With Contrast Exam date and time: 04/13/2025 3:36 PM Age: 44 years old Clinical indication: Abdominal pain; Additional info: Abd pain TECHNIQUE: Imaging protocol: Computed tomography of the abdomen and pelvis with contrast. Radiation optimization: All CT scans at this facility use at least one of these dose optimization techniques: automated exposure control; mA and/or kV adjustment per patient size (includes targeted exams where dose is matched to clinical indication); or iterative reconstruction. Contrast material: OMNI 350; Contrast volume: 100 ml; Contrast route: INTRAVENOUS (IV); COMPARISON: CT chest w con* [id number] 11/13/2024 8:32 PM RADIATION DOSE METRICS: Total DLP (mGy-cm): 1036.39 FINDINGS: Lungs: Stable multiple pulmonary nodules measuring up to 26 mm within left lower lobe. Liver: Normal. No mass. Gallbladder and biliary ducts: Status post cholecystectomy. Pancreas: Normal. No ductal dilation. Spleen: Normal. No splenomegaly. Adrenal glands: Normal. No mass. Kidneys and ureters: Normal. No hydronephrosis. Stomach and bowel: Extensive thickening of sigmoid colon with severe adjacent inflammatory changes. Possible couple colonic diverticula of visualized just superior to the inflammatory changes (3/65). Multiple nondilated fluid-filled loops of small bowel. Appendix: No evidence of appendicitis. Intraperitoneal space: Small amount of free pelvic fluid. Vasculature: Unremarkable. No abdominal aortic aneurysm. Lymph nodes: Unremarkable. No enlarged lymph nodes. Urinary bladder: Unremarkable as visualized. Reproductive: Unremarkable as visualized. Bones/joints: Unremarkable. No acute fracture. Soft tissues: Unremarkable. CT/CT abdomen pelvis w con* [id number] IMPRESSION: 1. Extensive mural thickening of sigmoid colon with adjacent inflammatory changes. Findings may represent sequela of uncomplicated acute diverticulitis although only 1-2 diverticula are visualized and changes of colitis of infectious/inflammatory etiology would be more likely. Possibility of focal lesion is not entirely excluded. Correlation with colonoscopy is recommended. 2. Partially visualized multiple bilateral pulmonary nodules measuring up to 26 mm.Consider non-emergent PET/CT or tissue sampling.(Reference: Tameka) REFERENCES: Tameka Sadler, et al. Guidelines for Management of Incidental Pulmonary Nodules Detected on CT Images: From the Fleischner Society 2017. Radiology. 2017;284(1):228-243.
[2025-04-13 14:41] VITALS: BP 107/65; PULSE 104; RESP 18; TEMP 37.6; O2SAT 96
--- NOTE | 2025-04-13 14:42 | W.ED.ABDPA2 ---
HPI - Abdominal Pain General: Chief Complaint: Abdominal Pain Stated Complaint: abd pain, nausea Time Seen by Provider: 04/13/25 14:17 Source: patient Mode of arrival: ambulatory Limitations: no limitations History of Present Illness: 44-year-old female with a history of colon cancer states she is diagnosed 3 months ago has not started treatment at this time states that she has been having some abdominal pain along with some constipation states she had some mild amount of rectal bleeding which she has had for months. She denies any fever she rates her abdominal pain as 6 out of 10 denies any vomiting. Associated Symptoms: Reports constipation; Denies chills, diarrhea, dysuria, fever(s), nausea and vomiting Related Data Home Medications ?Medication ?Instructions ?Recorded ?Confirmed celecoxib 100 mg capsule 100 mg PO BID 04/13/25 04/13/25 cholestyramine (with sugar) 4 gram 1 ea PO DAILY 04/13/25 04/13/25 powder for susp in a packet clonazepam 1 mg tablet 1 mg PO DAILY PRN Anxiety 04/13/25 04/13/25 diphenoxylate-atropine 2.5 1 tab PO QID PRN Diarrhea 04/13/25 04/13/25 mg-0.025 mg tablet famotidine 20 mg tablet 20 mg PO BID 04/13/25 04/13/25 fluoxetine 40 mg capsule 40 mg PO DAILY 04/13/25 04/13/25 fluticasone propionate 50 2 spray intranasal DAILY PRN 04/13/25 04/13/25 mcg/actuation nasal allergies spray,suspension gabapentin 300 mg capsule 300 mg PO TID 04/13/25 04/13/25 methadone 10 mg tablet 10 mg PO .1 TO 3 TIMES DAILY 04/13/25 04/13/25 ondansetron HCl 4 mg tablet 4 mg PO .Q6-8H PRN Nausea 04/13/25 04/13/25 oxycodone 5 mg tablet 5 mg PO .Q4-6H PRN Pain 04/13/25 04/13/25 pantoprazole 40 mg tablet,delayed 40 mg PO DAILY 04/13/25 04/13/25 release zolpidem 10 mg tablet 10 mg PO BEDTIME 04/13/25 04/13/25 Previous Rx's ?Medication ?Instructions ?Recorded ciprofloxacin HCl 500 mg tablet 500 mg PO BID #14 tabs 04/13/25 (Cipro) hydrocodone 5 mg-acetaminophen 325 1 tab PO Q6H PRN pain #14 tabs 04/13/25 mg tablet metronidazole 500 mg tablet 500 mg PO Q8H 7 days #21 tabs 04/13/25 ondansetron 4 mg disintegrating 4 mg PO Q6H PRN nausea and 04/13/25 tablet vomiting #14 tabs Allergies Allergy/AdvReac Type Severity Reaction Status Date / Time azithromycin Allergy ALGY-Rash Verified 11/13/24 18:12 Review of Systems Const: Denies: fever(s), chills, body aches or change in appetite ENMT: Denies: throat pain or dental pain Card: Denies: chest pain Resp: Denies: dyspnea GI: Reports: abdominal pain and constipation; Denies: nausea, vomiting or diarrhea : Denies: dysuria Musc: Denies: neck pain or back pain Skin/Breast: Denies: rash Neuro: Denies: headache(s) Physical Exam Const: COMMON NORMALS: no acute distress, patient oriented x3 and healthy appearing HENMT: COMMON NORMALS: normocephalic and atraumatic HEAD & SCALP: normocephalic and atraumatic Eye: COMMON NORMALS: Equal, round and reactive pupils present and EOMs intact bilaterally PUPIL: Yes Equal, round and reactive pupils present Neck/C-Spine: COMMON NORMALS: full ROM and supple Chest: COMMONS NORMALS: normal inspection of the chest and normal palpation of entire chest wall Resp: COMMON NORMALS: normal respiratory effort, No retractions, No use of accessory muscles and clear to auscultation bilaterally AUSCULTATION: clear to auscultation bilaterally Cardio: COMMON NORMALS: regular rate, regular rhythm and No murmurs present (Cardio) RATE: regular rate RHYTHM: regular rhythm GI: COMMON NORMALS: Normal to inspection, nondistended, normoactive bowel sounds present, Soft to palpation, non-tender and no masses PALPATION: Yes Soft to palpation Extremity: COMMON NORMALS: normal to inspection and full ROM Neuro: COMMON NORMALS: patient oriented x3, moves all extremities and no focal motor deficits Psych: COMMON NORMALS: mental status grossly normal, Normal thought process present and cooperative THOUGHT PROCESS: Normal thought process present Skin: COMMON NORMALS: no rashes or lesions noted and no wounds GENERAL SKIN EXAM: no rashes or lesions noted Course Vital Signs: Vital signs: Vital Signs Temperature 99.7 F H 04/13/25 14:41 Pulse Rate 104 H 04/13/25 14:41 Respiratory Rate 18 04/13/25 14:41 Blood Pressure 107/65 04/13/25 14:41 Pulse Oximetry 96 04/13/25 14:41 Oxygen Delivery Me thod Room Air 04/13/25 14:41 MDM - Abdominal Pain Medical Decision Making Patient presents for abdominal pain likely from her colon cancer he does have an elevated white count along with a UTI CT showed possible colitis it could be from her cancer as well I did offer admission she states she feels much improved and wants to go home and follow-up with her oncologist at [place] we will start her on pain meds along with antibiotic she is return if worsening she understands agrees to plan. Medical Records I reviewed the patient's medical records. Lab Data I reviewed the patient's lab results. 04/13/25 14:42 04/13/25 14:42 Labs/Radiology: Radiology Impressions Abdomen/Pelvis CT 04/13/25 14:36 IMPRESSION: 1. Extensive mural thickening of sigmoid colon with adjacent inflammatory changes. Findings may represent sequela of uncomplicated acute diverticulitis although only 1-2 diverticula are visualized and changes of colitis of infectious/inflammatory etiology would be more likely. Possibility of focal lesion is not entirely excluded. Correlation with colonoscopy is recommended. 2. Partially visualized multiple bilateral pulmonary nodules measuring up to 26 mm.Consider non-emergent PET/CT or tissue sampling.(Reference: Tameka) REFERENCES: Tameka Sadler, et al. Guidelines for Management of Incidental Pulmonary Nodules Detected on CT Images: From the Fleischner Society 2017. Radiology. 2017;284(1):228-243. Laboratory Results WBC 16.87 10^3/uL (3.29-11.43) H 04/13/25 14:42 RBC 4.00 10^6/uL (3.85-5.65) 04/13/25 14:42 Hgb 9.90 g/dL (11.27-16.99) L 04/13/25 14:42 Hct 31.8 % (36-47) L 04/13/25 14:42 MCV 79.5 fl (85-98) L 04/13/25 14:42 MCH 24.8 pg (27-33) L 04/13/25 14:42 MCHC 31.1 g/dL (30-55) 04/13/25 14:42 RDW 21.6 % (12.1-15.1) H 04/13/25 14:42 Plt Count 461 10^3/cmm (157-399) H 04/13/25 14:42 MPV 8.9 fL (7.4-10.4) 04/13/25 14:42 Neut % (Auto) 79.2 % 04/13/25 14:42 Lymph % (Auto) 9.8 % 04/13/25 14:42 Stanton % (Auto) 8.4 % 04/13/25 14:42 Eos % (Auto) 1.4 % 04/13/25 14:42 Baso % (Auto) 0.4 % 04/13/25 14:42 Neut # (Auto) 13.36 10^3/uL (1.8-7.7) H 04/13/25 14:42 Lymph # (Auto) 1.7 10^3/uL (0.8-4.8) 04/13/25 14:42 Stanton # (Auto) 1.4 10^3/uL (0.2-0.9) H 04/13/25 14:42 Eos # (Auto) 0.2 10^3/uL (0.0-0.8) 04/13/25 14:42 Baso # (Auto) 0.1 10^3/uL (0.0-0.1) 04/13/25 14:42 Nucleated RBC % (auto) 0 % 04/13/25 14:42 Nucleated RBCs # 0.0 /100WBC 04/13/25 14:42 Sodium 136 mmol/L (136-145) 04/13/25 14:42 Potassium 4.4 mmol/L (3.5-5.1) 04/13/25 14:42 Chloride 98 mmol/L (98-107) 04/13/25 14:42 Carbon Dioxide 24 mmol/L (22-29) 04/13/25 14:42 Anion Gap 18.4 (5-19) 04/13/25 14:42 BUN 11 mg/dL (6-20) 04/13/25 14:42 Creatinine 0.8 mg/dL (0.5-0.9) 04/13/25 14:42 GFR Calculation 78.3 mL/min (90-130) L 04/13/25 14:42 Glucose 100 mg/dL (65-115) 04/13/25 14:42 Calculated Osmolality 281 mOsm/kg (285-295) L 04/13/25 14:42 Lactic Acid 1.3 mmol/L (0.5-2.2) 04/13/25 14:42 Calcium 7.9 mg/dL (8.5-10.5) L 04/13/25 14:42 Total Bilirubin 0.3 mg/dL (0.15-1.2) 04/13/25 14:42 AST 10 U/L (0-32) 04/13/25 14:42 ALT 7 U/L (0-33) 04/13/25 14:42 Alkaline Phosphatase 116 U/L (35-105) H 04/13/25 14:42 Total Protein 7.2 g/dL (6.6-8.7) 04/13/25 14:42 Albumin 3.4 g/dL (3.5-5.2) L 04/13/25 14:42 Globulin 3.8 g/dL (1.3-4.6) 04/13/25 14:42 Lipase 14 U/L (13-60) 04/13/25 14:42 HCG, Qual Negative (Negative) 04/13/25 14:42 Urine Color Dark yellow (Yellow) A 04/13/25 14:44 Urine Appearance Turbid (CLEAR) A 04/13/25 14:44 Urine pH 7.5 (5-7) 04/13/25 14:44 Ur Specific [place] 1.026 (1.005-1.030) 04/13/25 14:44 Urine Protein 1+ (Negative) A 04/13/25 14:44 Urine Glucose (UA) Negative (Normal) 04/13/25 14:44 Urine Ketones Trace (Negative) 04/13/25 14:44 Urine Blood Trace (Negative) A 04/13/25 14:44 Urine Nitrate Negative (Negative) 04/13/25 14:44 Urine Bilirubin Negative (Negative) 04/13/25 14:44 Urine Urobilinogen 1.0 mg/dL (Negative) 04/13/25 14:44 Ur Leukocyte Esterase 3+ (Negative) A 04/13/25 14:44 Urine RBC 21-50 /hpf (0-2) H 04/13/25 14:44 Urine WBC 51-100 /hpf (0-5) H 04/13/25 14:44 Ur Squamous Epith Cells 11-20 /hpf (0-5) H 04/13/25 14:44 Amorphous Sediment Not Reportable 04/13/25 14:44 Urine Bacteria Trace /hpf (NONE) 04/13/25 14:44 Hyaline Casts 5.77 /lpf 04/13/25 14:44 All radiology interpretation(s) finalized by discharge Discharge Plan Discharge Patient Disposition: Home Clinical Impression: Abdominal pain, Acute cystitis, Colitis, Colon cancer Condition: Stable Prescriptions: New hydrocodone-acetaminophen 5-325 mg tablet 1 tab PO Q6H PRN (Reason: pain) Qty: 14 0RF metronidazole 500 mg tablet 500 mg PO Q8H 7 Days Qty: 21 0RF ciprofloxacin HCl [Cipro] 500 mg tablet 500 mg PO BID Qty: 14 0RF ondansetron 4 mg tablet,disintegrating 4 mg PO Q6H PRN (Reason: nausea and vomiting) Qty: 14 0RF No Action fluoxetine 40 mg capsule 40 mg PO DAILY methadone 10 mg tablet 10 mg PO .1 TO 3 TIMES DAILY ondansetron HCl 4 mg tablet 4 mg PO .Q6-8H PRN (Reason: Nausea) clonazepam 1 mg tablet 1 mg PO DAILY PRN (Reason: Anxiety) diphenoxylate-atropine 2.5-0.025 mg tablet 1 tab PO QID PRN (Reason: Diarrhea) famotidine 20 mg tablet 20 mg PO BID pantoprazole 40 mg tablet,delayed release (DR/EC) 40 mg PO DAILY gabapentin 300 mg capsule 300 mg PO TID zolpidem 10 mg tablet 10 mg PO BEDTIME celecoxib 100 mg capsule 100 mg PO BID fluticasone propionate 50 mcg/actuation spray,suspension 2 spray INTRANASAL DAILY PRN (Reason: allergies) oxycodone 5 mg tablet 5 mg PO .Q4-6H PRN (Reason: Pain) cholestyramine (with sugar) 4 gram powder in packet 1 ea PO DAILY Discharge Orders: Discharge ED (Routine); Ordered 04/13/25 Ordered By: Korby Kristan Referrals: JOSE A DAVIS MD [Primary Care Provider, [facility]] - 4-7 days Discharge Diet: Advance as tolerated Discharge Activity: Resume usual activity Patient Instructions: Abdominal Pain (ED), Colitis (ED), Opioid Safety Print Language: Romanian Coding Level of Care Code ED Production Weigher for Jazmine Parra
[2025-04-13 14:50] LABS: Hematocrit 31.8 % (36-47); Hemoglobin 9.90 g/dL (11.27-16.99); Mean Corpuscular HGB Conc 31.1 g/dL (30-55); Mean Corpuscular Hemoglobin 24.8 pg (27-33); Mean Corpuscular Volume 79.5 fl (85-98); Nucleated Red Blood Cells % 0 %; Platelet Count 461 10^3/cmm (157-399); Red Blood Count 4.00 10^6/uL (3.85-5.65); White Blood Count 16.87 10^3/uL (3.29-11.43)
[2025-04-13 14:58] LABS: Glucose Urine UA Negative (Normal); Nitrate Urine Negative (Negative); Specific Gravity, Urine 1.026 (1.005-1.030)
[2025-04-13 15:03] LABS: Add Urine Microscopic? YES
[2025-04-13 15:04] LABS: HCG, Serum Qual Negative (Negative)
[2025-04-13 15:06] LABS: Alanine Aminotransferase 7 U/L (0-33); Albumin Level 3.4 g/dL (3.5-5.2); Alkaline Phosphatase 116 U/L (35-105); Anion Gap 18.4 (5-19); Aspartate Amino Transferase 10 U/L (0-32); Blood Urea Nitrogen 11 mg/dL (6-20); Calcium 7.9 mg/dL (8.5-10.5); Carbon Dioxide 24 mmol/L (22-29); Chloride 98 mmol/L (98-107); Creatinine Clr Calc Pharmacy 106.2488; Globulin 3.8 g/dL (1.3-4.6); Glucose 100 mg/dL (65-115); Lipase 14 U/L (13-60); Osmolality Calculated 281 mOsm/kg (285-295); Potassium 4.4 mmol/L (3.5-5.1); Sodium 136 mmol/L (136-145); Total Protein 7.2 g/dL (6.6-8.7)
[2025-04-13] MEDS: morphine 4 mg/mL SDV 1 mL IVP (15:19)
[2025-04-13] MEDS: ondansetron 2 mg/ML SDV 2 mL 4 MG IVP (15:19)
[2025-04-13 15:25] LABS: Lactic Sepsis W/Reflex 1.3 mmol/L (0.5-2.2)
[2025-04-13] MEDS: cefTRIAXone 1,000 mg SDV 1000 MG IVP (15:27)
[2025-04-13] MEDS: iohexol 350 mg/mL 500 mL Btl (per mL) IV (15:39)
--- NOTE | 2025-04-13 16:07 | PC.PHAR ---
Pt gets her medications at [facility] in [facility]. Last taken medications yesterday.
[2025-04-13] MEDS: HYDROmorphone 0.5 MG/0.5 ML INJ 1 MG IVP (16:16)
[2025-04-13 16:56] VITALS: BP 111/71; PULSE 98; RESP 18; O2SAT 97
[2025-04-13 17:02] VITALS: BP 111/71; PULSE 98; O2SAT 97
== END 2025-04-13 17:04 | disposition home or self-care (01) ==
PROVIDERS: Emergency Provider Emergency Medicine; PCP Family Medicine
DX: R10.9 Unspecified abdominal pain (principal); N30.00 Acute cystitis without hematuria; K52.9 Noninfective gastroenteritis and colitis, unspecified; C18.9 Malignant neoplasm of colon, unspecified
CPT/HCPCS: 36415; 74177; 80053; 81001; 83605; 83690; 84703; 85025; 96374; 96375; 99285; J0696; J1171; J2270; J2405; J7030; J9999

== ENCOUNTER 2025-04-24 22:23 | Inpatient (IN) | payer MEDICAID, SELFPAY ==
[2025-04-24 22:25] VITALS: BP 109/69; PULSE 106; RESP 20; TEMP 36.7; O2SAT 98; BMI 33.7
--- OUTSIDE RECORDS SUMMARY | 2025-04-24 22:31 | XMS_ITS | CCD ---
Author Name Interface, [email or web address] Address [address] [place] [address] [facility] Address [address] [place] [address] Care Team Providers Care Shank Turner Name Role Phone Samara PEREZ, Malvin Unavailable Unavailable Allergies and Adverse Reactions Care Plan Reason for Visit Encounters Diagnostic Results Medications Administered Medications Patient Education Problems Procedures Social History Vital Signs
--- OUTSIDE RECORDS SUMMARY | 2025-04-24 22:31 | XMS_ITS | Patient Health Record ---
Author Organization [facility] Address [address] [place] [address] Care Team Providers Care Sailmaker Name Role Phone Indira Coombs MD Primary Care Provider Unavailab le Lisa Ovalle Unavailable Allergies Allergen (clinical drug ingredient) Drug/Non Drug Allergy documented on EMR Reaction Allergy Type Onset Date Status azithromycin Azithromycin , Cutaneous eruption (morphologic abnormality) , Drug Allergy Active Results Component Value Reference Range Notes Abdomen Acute Series-[id number] Reviewed date:05/21/2024 06:26:00 AM Interpretation: Performing Lab: Notes/Report: See Below For Report Abdomen Acute Series Read See Below For Report Abdomen Acute Series-[id number] Reviewed date:11/25/2024 06:04:18 AM Interpretation: Performing Lab: Notes/Report: See Below For Report Abdomen Acute Series Read See Below For Report Reason For Referral Reason chronic pain Diagnosis 1 Chronic pain syndrom e (G89.4) Referring Provider First Name Indira Referring Provider Last Name Malvin Referring Provider Speciality Family Med icine [facility] Organization [facility] Referred Provider Giovanni Ovalle Referred Address [address] [facility] [facility],[place],[address], Referred Provider Specialty Pain Medicin e General Notes Yenni Tillman 2024 03:48:44 PM >ATC. Patient has calling restrictions so I was unable to leave a .Fredi Melody 01/16/2025 10:12:47 AM >Mailed NPPW Referral [...] Status Risk Notes Problem Chronic pain syndrome ([id number]) Chronic pain syndrome (G89.4) Active confirmed Problem Fatty liver (K76.0) Active confirmed Encounters Encounter Location Date Provider Diagnosis [facility] [address] [place] [address] 04/02/2025 Lisa Ovalle Chronic pain syndrome G89.4 Assessments Encounter Date Diagnosis (ICD Code) Assessment Notes Treatment Notes Treatment Clinical Notes Section Notes 04/02/2025 Chronic pain syndrome (ICD-10 - G89.4) Plan Of Treatment No Information Insurance Providers Payer Name Payer Address Payer Phone Subscriber Number Group Number Insured Name Patient Relationship to Insured Coverage Start Date Coverage End Date Joseph [address] [place] [phone] [id number] Luli Beal Self - patient is the insured Medical [...] anxiety fatty liver Surgical History Surgery Date(Month/Year) 1998 2002 2006
--- OUTSIDE RECORDS SUMMARY | 2025-04-24 22:31 | XMS_ITS ---
Author Name Interface, [id number] lity Address [address] [place] [address] Organization [facility] Address [address] [place] [address] Allergies and Adverse Reactions Medication/Group Name Reaction Severity Date azithromycin 02/18/2025 Plan Date Type Value 04/22/2025 APPOINTMENT ONC FOLLOW-UP 04/02/2025 APPOINTMENT TELEMED (PHONE C ALL ONLY) 04/01/2025 APPOINTMENT CHEMO 15 MIN 03/18/2025 APPOINTMENT CHEMO 15 MIN 04/01/2025 LABORDER MRI pelvis w/ an d w/o contrast 04/22/[address] chest w/ IV c ontrast Reason for Visit ONC FOLLOW-UP Diagnostic Results Date Type Test Units Lower Limit Upper Limit Result Flag Comments Status Ordered By Specimen Source Lab Address 03/18 Gluco se [Mass /volu me] in Serum or Plasm a 74.0 106.0 95 Rosetta l [facility], [address] [place] [id number] [place] [address] 03/18 BUN 7.0 17.0 10 Rosetta l [facility], [address] [place] [address] [facility] 03/18 Creat inine [Mass /volu me] in Serum or Plasm a 0.7 1.2 0.8 Rosetta l [facility], [address] [place] [address] [facility] 03/18 Sodiu m 137.0 145.0 139 Rosetta l [facility], [address] [place] [address] [facility] 03/18 Potas sium [Mole s/vol ume] in Serum or Plasm a 3.5 5.1 3.0 Low [facility], [address] [place] [address] [facility] 03/18 Chlor ronny 98.0 107.0 105 Rosetta l [facility], [address] [place] [address] [facility] 03/18 Carbo n dioxi de, total [Mole s/vol ume] in Serum or Plasm a 22.0 30.0 29 Rosetta l [facility], [address] [place] [address] [facility] 03/18 Calci um [Mass /volu me] in Blood 8.4 10.2 8.6 Rosetta l [facility], [address] [place] [id number] [place] [address] 03/18 Anion gap 4.0 12.0 5 Rosetta l [facility], [address] [place] [address] [facility] 03/18 Urea nitro gen/C reati nine [Mass Ratio ] in Blood 12.0 20.0 12.5 Rosetta l [facility], [address] [place] [id number] [place] [address] 03/18 Osmol ality , calcu lated , mOs/k g 261.0 280.0 276 Rosetta l [facility], [address] [place] [address] [facility] 03/18 Glome navneetlar filtr ation rate/ 1.73 sq M.pre dicte d [Volu me Rate/ Area] in Serum , Plasm a or Blood by Creat inine -base d formu la (CKD- EPI) 90.0 120.0 94 >=90 [id number]- 89 Mildly Decreased 45-59 Mildly to Moderatel y Decreased 30-44 Moderatel y to Severely Decreased 15-29 Severely Decreased <15 Kidney Failure [facility], [address] [place] [address] [facility] 03/18 Bilir ubin, total 0.2 1.3 0.30 Rosetta l [facility], [address] [place] [address] [facility] 03/18 Aspar diana amino trans feras e [Enzy matic activ ity/v olume ] in Serum or Plasm a 14.0 36.0 31 Rosetta l [facility], [address] [place] [address] [facility] 03/18 Darvin ne amino trans feras e [Enzy matic activ ity/v olume ] in Serum or Plasm a 0.0 34.0 22 Rosetta l [facility], [address] [place] [address] [facility] 03/18 Alkal ine phosp hatas e [Enzy matic activ ity/v olume ] in Serum or Plasm a 38.0 126.0 114 Rosetta l [facility], [address] [place] [address] [facility] 03/18 Prote in [Mass /volu me] in Serum or Plasm a 6.3 8.2 6.7 Rosetta l [facility], [address] [place] [address] [facility] 03/18 Album in [Mass /volu me] in Serum or Plasm a 3.5 5.0 3.8 Rosetta l [facility], [address] [place] [address] [facility] 03/18 Globu lesli 2.2 4.2 2.9 Rosetta l [facility], [facility], [address] [facility] [place] [address] [facility] 03/18 A/G ratio 1.1 2.2 1.30 Rosetta l [facility], [facility], [address] [facility] [place] [address] [facility] 03/18 MPV 7.4 10.4 9.5 Rosetta l [facility], [facility], [address] [place] [address] [facility] 03/18 Segme nted neutr ophil s/100 leuko cytes in Blood by Autom ated count 43.0 65.0 55.2 Rosetta l [facility], [facility], [address] [place] [address] [facility] 03/18 Lymph ocyte s/100 leuko cytes in Blood by Flow cytom etry (FC) 20.5 45.5 31.6 Rosetta l [facility], [facility], [address] [place] [address] [facility] 03/18 MO % 5.5 11.7 8.0 Rosetta l [facility], [facility], [address] [place] [address] [facility] 03/18 EO % 0.9 2.9 4.0 High [facility], [facility], [address] [place] [address] [facility] 03/18 BA % 0.2 1.0 1.0 Rosetta l [facility], [facility], [address] [facility] [place] [address] [facility] 03/18 Neutr ophil s [#/vo lume] in Blood by Autom ated count 2.2 4.8 2.22 Rosetta l [facility], [facility], [address] [place] [address] [facility] 03/18 Lymph ocyte s [#/vo lume] in Blood by Autom ated count 1.3 2.9 1.27 Low [facility], [facility], [address] [facility] [address] [facility] 03/18 Monoc ytes [#/vo lume] in Blood by Autom ated count 0.3 0.8 0.32 [facility], [facility], [address] [facility] [place] [address] [facility] 03/18 Eosin ophil s [#/vo lume] in Blood by Autom ated count 0.0 0.1 0.16 High [facility]vin P[facility], [address] [facility] [address] [facility] 03/18 Basop hils [#/vo lume] in Blood by Autom ated count 0.0 0.1 0.04 Rosetta l [facility], [facility], [address] [facility] [place] [address] [facility] 03/18 Leuko cytes [#/vo lume] in Blood by Autom ated count 4.8 10.8 4.0 Low [facility], [facility], [address] [facility] [place] [address] [facility] 03/18 Eryth rocyt es [#/vo lume] in Blood by Autom ated count 4.2 5.4 3.88 [facility], [facility], [address] [facility] [place] [address] [facility] 03/18 Hemog lobin [Mass /volu me] in Blood 12.0 16.0 9.6 Low Malvin P[facility]ual [facility], [facility], [address] [facility] [address] [facility] 03/18 HCT 37.0 47.0 30.4 Low [facility], [facility], [address] [facility] [place] [address] [facility] 03/18 MCV 81.0 99.0 78.4 Low [facility], [facility], [address] [facility] [place] [address] [facility] 03/18 MCH 27.0 31.0 24.7 Low [facility], [facility], [address] [facility] [place] [address] [facility] 03/18 MCHC [Mass /volu me] by Autom ated count 32.0 36.0 31.6 Low [facility], [facility], [address] [facility] [address] [facility] 03/18 Eryth rocyt e distr ibuti on width [Rati o] by Autom ated count 11.5 15.5 19.0 High [facility], [facility], [address] [facility] [address] [facility] 03/18 Plate lets [#/vo lume] in Blood by Autom ated count 130.0 400.0 205 [facility], [facility], [address] [facility] [address] [facility] 04/02 MRILU MB*- [address] [place] [address] [phone] Radiolo gy ReportP atient: FISH MAURER letha: [phone] Date of Service : 5Acct #: [id number] #: [id number]/ AGE/SEX :1979 / 44 / FRoom/B ed: Locatio n: [place] RADAcce ssion: [id number] : MRI Pelvis W W/O Cont Reason: RECTAL CAOrder ing Provide r: Samara,At if MDAtten ding Provide r: Samara,At if [facility]: Indira Coombs; Abigail blunt MD, Remy Dorsey; Samara PEREZ, AtifRep ort Number: [id number] atient total CT exams last year 5MRI [...] MD, Remy Dorsey 5 1531 SCHEDUL ED [facility]vin Samara 04/24 Surgi davidson patho logy SEE PATH REPORT FINAL [facility]ly [facility] Source, Unspecifi ed [facility], [address] [facility] [place] [address] [facility] [address] [facility] Medications Date Name Route Dose Frequency Instructions [...] intravenously 10.0 mg once 2024 active 05/13 Solu-Medrol intravenously 125.0 mg Re-initiate treatment only upon physician approval. 2024 active 05/13 Oxaliplatin IV intravenously 180.0 mg once Not compatible with NS.Oxaliplati n is an irritant. 2024 active 05/13 Diphenhydramine IV intravenously 50.0 mg Re-initiate treatment only upon physician approval. 2024 active 05/13 famotidine 10 MG/ML Injectable Solution intravenously 20.0 mg Re-initiate treatment only upon physician approval. 2024 active 05/13 hydrocortisone 100 MG Injection intravenously 100.0 mg Re-initiate treatment only upon physician approval. 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 Dilute in NS or D5W. 2024 active 05/13 fluorouracil 50 MG/ML Injectable [...] intravenously 4.0 mg once 2024 active 05/13 granisetron 1 MG/ML Injectable Solution intravenously 1000.0 mcg once 2024 active 05/13 dexamethasone phosphate 4 MG/ML Injectable Solution intravenously 10.0 mg once 2024 active 05/13 methylprednisol one 2000 MG Injection intravenously 125.0 mg Re-initiate treatment only upon physician approval. 2024 active 05/13 diphenhydramine hydrochloride 0.5 MG/ML Injectable Solution intravenously 50.0 mg Re-initiate treatment only upon physician approval. 2024 active 05/13 Solu-Cortef intravenously 100.0 mg [...] only upon physician approval. 2024 active 04/29 hydrocortisone 100 MG Injection intravenously 100.0 mg Re-initiate treatment only upon physician approval. 2024 active 04/29 granisetron 1 MG/ML Injectable Solution intravenously 1000.0 mcg once 2024 active 04/29 fluorouracil 50 MG/ML Injectable Solution via continuous infusion 5000.0 mg once TOTAL CIV CYCLE DOSE = 2400 mg/m2 CIV over 46 hours. Patient to be seen for a pump disconnect on Day 3. Refer to drug stability guidelines. 2024 active 04/29 dexamethasone phosphate 4 MG/ML Injectable Solution intravenously 10.0 mg once 2024 active 04/29 Oxaliplatin IV intravenously 180.0 mg once Not compatible with NS.Oxaliplati n is an irritant. 2024 active 04/29 1 ML epinephrine 1 MG/ML Injection intramuscularly 0.3 mg once Re-initiate treatment only upon physician approval. 2024 active 04/24 ondansetron 4 MG Oral Tablet orally 1.0 tabs every 6 to 8 hours 2024 active 04/22 72 HR fentanyl 0.05 MG/HR Transdermal System transdermally 1.0 patch every 72 hours 2024 active 04/21 oxycodone hydrochloride 5 MG Oral Tablet orally 1.0 tablet every 4 to 6 hours 2024 active 04/15 Solu-Cortef intravenously 100.0 mg [...] every 4 to 6 hours 2024 active 02/18 methylprednisol one 2000 MG Injection intravenously 125.0 mg Re-initiate treatment only upon physician approval. 2024 active 02/18 prochlorperazin e 10 MG Oral Tablet orally 1.0 tablet every 6 hours 2024 active 02/18 hydrocortisone 100 MG Injection [...] treatment only upon physician approval. 2024 active 02/17 oxycodone hydrochloride 5 MG Oral Tablet orally 1.0 tablet every 4 to 6 hours 2024 active 02/11 oxycodone hydrochloride 5 MG Oral Tablet orally 1.0 tablet every 4 to 6 hours 2024 active Problems Diagnosis Status Date of Diagnosis Resolution Date Rectal cancer Active Bone metastasis Active Vital Signs Date Type Value 03/18/2025 Pain Scale 0.00 03/18/2025 BMI 35.02 03/18/2025 Height 67.00 03/18/2025 Weight 223.60 03/18/2025 Intravascular Systolic 130 03/18/2025 Intravascular Diastolic 84 03/18/2025 Heart Beat 75.00 03/18/2025 Body Temperature 97.50 03/18/2025 BSA 2.12 04/22/2025 BSA 2.06 04/22/2025 BMI 32.83 04/22/2025 Height 67.00 04/22/2025 Weight 209.60 04/22/2025 Pain Scale 0.00 04/22/2025 Intravascular Systolic 111 04/22/2025 Intravascular Diastolic 73 04/22/2025 Heart Beat 119.00
--- OUTSIDE RECORDS SUMMARY | 2025-04-24 22:31 | XMS_ITS ---
Author Name Interface, [id number] lity Address [address] [place] [address] Organization [facility] Address [address] [place] [address] Allergies and Adverse Reactions Medication/Group Name Reaction [...] Plasm a 74.0 106.0 95 Rosetta l [facility], [address] [place] [address] [place] [address] 03/18 BUN 7.0 17.0 10 Rosetta l [facility], [address] [place] [address] [facility] 03/18 Creat inine [Mass /volu me] in Serum or Plasm a 0.7 1.2 0.8 Rosetta l [facility], [address] [place] [address] [facility] 03/18 Sodiu m 137.0 145.0 139 Rosetta l [facility], [address] [place] [address] [facility] 03/18 Potas sium [Mole s/vol ume] in Serum or Plasm a 3.5 5.1 3.0 Low [facility], [address] [place] [address] [facility] 03/18 Chlor ronny 98.0 107.0 105 Rosetta l [facility], [address] [place] [address] [facility] 03/18 Carbo n dioxi de, total [Mole s/vol ume] in Serum or Plasm a 22.0 30.0 29 Rosetta l [facility], [address] [place] [address] [facility] 03/18 Calci um [Mass /volu me] in Blood 8.4 10.2 8.6 Ros[facility] l [facility], [address] [place] [address] [place] [address] 03/18 Anion gap 4.0 12.0 5 Rosetta l [facility], [address] [place] [address] [facility] 03/18 Urea nitro gen/C reati nine [Mass Ratio ] in Blood 12.0 20.0 12.5 Rosetta l [facility], [address] [place] [address] [place] [address] 03/18 Osmol ality , calcu lated , mOs/k g 261.0 280.0 276 Rosetta l [facility], [address] [place] [address] [facility] 03/18 Glome navneetlar filtr ation rate/ 1.73 sq M.pre dicte d [Volu me Rate/ Area] in Serum , Plasm a or Blood by Creat inine -base d formu la (CKD- EPI) 90.0 120.0 94 >=90 [id number]- 89 Mildly Decreased 45-59 Mildly to Moderatel y Decreased 30-44 Moderatel y to Severely Decreased 15-29 Severely Decreased <15 Kidney Failure [facility], [address] [facility] [place] [address] [facility] 03/18 Bilir ubin, total 0.2 1.3 0.30 Ros[facility] l [facility], [address] [facility] [place] [address] [facility] 03/18 Aspar diana amino trans feras e [Enzy matic activ ity/v olume ] in Serum or Plasm a 14.0 36.0 31 Ros[facility] l [facility], [address] [facility] [place] [address] [facility] 03/18 Darvin ne amino trans feras e [Enzy matic activ ity/v olume ] in Serum or Plasm a 0.0 34.0 22 Ros[facility] l [facility], [address] [facility] [place] [address] [facility] 03/18 Alkal ine phosp hatas e [Enzy matic activ ity/v olume ] in Serum or Plasm a 38.0 126.0 114 Ros[facility] l [facility], [address] [facility] [place] [address] [facility] 03/18 Prote in [Mass /volu me] in Serum or Plasm a 6.3 8.2 6.7 Ros[facility] l [facility], [address] [facility] [address] [facility] 03/18 Album in [Mass /volu me] in Serum or Plasm a 3.5 5.0 3.8 [facility] l [facility], [address] [facility] [place] [address] [facility] 03/18 Globu lesli 2.2 4.2 2.9 Rosetta l [facility], [facility], [address] [facility] [place] [address] [facility] 03/18 A/G ratio 1.1 2.2 1.30 Rosetta l [facility], [facility], [address] [facility] [address] [facility] 03/18 MPV 7.4 10.4 9.5 Rosetta l [facility], [facility], [address] [facility] [place] [address] [facility] 03/18 Segme nted neutr ophil s/100 leuko cytes in Blood by Autom ated count 43.0 65.0 55.2 Rosetta l [facility], [facility], [address] [facility] [place] [address] [facility] 03/18 Lymph ocyte s/100 leuko cytes in Blood by Flow cytom etry (FC) 20.5 45.5 31.6 Rosetta l [facility], [facility], [address] [facility] [address] [facility] 03/18 MO % 5.5 11.7 8.0 Rosetta l [facility], [facility], [address] [facility] [place] [address] [facility] 03/18 EO % 0.9 2.9 4.0 High Malvin [facility], [facility], [address] [facility] [address] [facility] 03/18 BA % 0.2 1.0 1.0 Rosetta l [facility], [facility], [address] [facility] [place] [address] [facility] 03/18 Neutr ophil s [#/vo lume] in Blood by Autom ated count 2.2 4.8 2.22 Rosetta l [facility], [facility], [address] [facility] [place] [address] [facility] 03/18 Lymph ocyte s [#/vo lume] in Blood by Autom ated count 1.3 2.9 1.27 Low [facility], [facility], [address] [place] [address] [facility] 03/18 Monoc ytes [#/vo lume] in Blood by Autom ated count 0.3 0.8 0.32 [facility], [facility], [address] [place] [address] [facility] 03/18 Eosin ophil s [#/vo lume] in Blood by Autom ated count 0.0 0.1 0.16 High Malvin Pascual [facility], [address] [place] [address] [facility] 03/18 Basop hils [#/vo lume] in Blood by Autom ated count 0.0 0.1 0.04 Rosetta l [facility], [facility], [address] [place] [address] [facility] 03/18 Leuko cytes [#/vo lume] in Blood by Autom ated count 4.8 10.8 4.0 Low Mal[facility], [facility], [address] [place] [address] [facility] 03/18 Eryth rocyt es [#/vo lume] in Blood by Autom ated count 4.2 5.4 3.88 [facility], [facility], [address] [place] [address] [facility] 03/18 Hemog lobin [Mass /volu me] in Blood 12.0 16.0 9.6 Low Malvin Pascual [facility], [facility], [address] [place] [address] [facility] 03/18 HCT 37.0 47.0 30.4 Low Malvin [facility], [facility], [address] [place] [address] [facility] 03/18 MCV 81.0 99.0 78.4 Low [facility]vin [facility], [facility], [address] [place] [address] [facility] 03/18 MCH 27.0 31.0 24.7 Low [facility]vin [facility], [facility], [address] [place] [address] [facility] 03/18 MCHC [Mass /volu me] by Autom ated count 32.0 36.0 31.6 Low Malvin [facility], [facility], [address] [place] [address] [facility] 03/18 Eryth rocyt e distr ibuti on width [Rati o] by Autom ated count 11.5 15.5 19.0 High Malvin [facility], [facility], [address] [place] [address] [facility] 03/18 Plate lets [#/vo lume] in Blood by Autom ated count 130.0 400.0 205 [facility] l [facility], [facility], [address] [facility] [address] [facility] 04/02 MRILU MB*- [address] [place] [address] Radiolo gy ReportP atient: FISH MAURER letha: 5 [phone] Date of Service : 5Acct #: [id number] #: [id number]/ AGE/SEX :1979 / 44 / FRoom/B ed: Locatio n: [place] RADAcce ssion: [id number] : MRI Pelvis W W/O Cont Reason: RECTAL CAOrder ing Provide r: Samara,At if MDAtten ding Provide r: Samara,At if [facility]: Indira Coombs; Abigail blunt MD, Remy Dorsey; Samara PEREZ, AtifRep ort Number: [id number] atient total CT exams last year 5MRI [...] davidson patho logy SEE PATH REPORT FINAL [facility] Source, Unspecifi ed [facility], [address] [facility] [place] [address] [facility] [address] [facility] Medications Date Name Route Dose [...]
--- OUTSIDE RECORDS SUMMARY | 2025-04-24 22:31 | XMS_ITS ---
Author Name Interface, [id number] lity Address [facility] [place] [address] [facility] Address [facility] [place] [address] Allergies and Adverse Reactions Plan Reason for Visit Encounters Diagnostic Results Medications Problems Vital Signs
--- OUTSIDE RECORDS SUMMARY | 2025-04-24 22:31 | XMS_ITS | CCD ---
Author Name Interface, [id number] lity Address [address] [place] [id number] [facility] Address [facility] [place] [address] Care Team Providers Care Valance Cutter Name Role Phone Samara PEREZ, Malvin Unavailable Unavailable Allergies and Adverse Reactions Medication/Group Name Reaction Severity Date azithromycin 02/18/2025 Care Plan Date Type Value 04/22/2025 APPOINTMENT ONC [...] c ontrast Reason for Visit ONC FOLLOW-UP Encounters Date Name 04/22/2025 Rectal cancer 04/22/2025 Rectal cancer Diagnostic Results Date Type Test Units Lower Limit Upper Limit Result Flag Comments Status Ordered By Specimen Source Lab Address 02/04 Unbou nd iron capac ity 419 Malvin Samara Source, Unspecifi ed [facility], [address] [place] [address] [facility] 02/04 Iron, % satur ation [facility], Unspecifi ed [facility], [address] [place] [address] [facility] 02/04 Iron [Mass /volu me] in Serum or Plasm a 37.0 170.0 38 Rosetta l [facility] Source, Unspecifi ed [facility], [address] [place] [address] [facility] 02/04 Iron lina ng capac ity [Mass /volu me] in Serum or Plasm a 265.0 497.0 457 Rosetta l [facility] Source, Unspecifi ed [facility], [address] [facility] [address] [facility] 02/13 CTACH EST [address] [address] [phone] Radiolo gy ReportP atient: FISH MAURER leted: 5 [phone] Date of Service : 5Acct #: [id number]: [id number]/ AGE/SEX :05/18/ 1979 / 44 / FRoom/B ed: Locatio n: CTAcces master: [id number] : CT Abd/Pel vis W Contras t Reason: COLON CANCERO rdering Provide r: Samara,At [facility] thierno Provide r: Samara,At [facility]: Indira Coombs; Samara PEREZ, [facility]; Mayra PEREZ, [facility] port Number: [id number] atient total CT exams last year 3CT [...] Mayra PEREZ, Ronaldo 5 1339 SCHEDUL ED [facility] 02/06 Caris summa ry repor t Caris summa ry repor t PDF See 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 disaster 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 FINAL [facility] , [address], [address] [place] [address] 03/04 PRBC, leuko cyte- reduc ed [id number] AN PRSMD TRFSD 5 1421 FINAL [facility] 03/04 Blood bank type and scree n panel ABO/R h AN CORRECT ED [facility], [address] [facility] [place] [address] 03/04 Blood bank type and scree n panel Antib yung scree n, qual NEGATIV E CORRECT ED [facility], [address] [facility] [place] [address] 03/18 MCV 81.0 99.0 78.4 Low [facility], [facility], [address] [facility] [place] [address] [facility] 03/18 MO % 5.5 11.7 8.0 Rosetta l [facility], [facility], [address] [facility] [place] [address] [facility] 03/18 EO % 0.9 2.9 4.0 High [facility], [address] [facility] [place] [address] [facility] 03/18 MPV 7.4 10.4 9.5 Rosetta l [facility], [facility], [address] [facility] [place] [address] [facility] 03/18 BA % 0.2 1.0 1.0 [place] [facility], [address] [facility] [place] [address] [facility] 03/18 Eosin ophil s [#/vo lume] in Blood by Autom ated count 0.0 0.1 0.16 High [facility], [address] [place] [address] [facility] 03/18 MCHC [Mass /volu me] by Autom ated count 32.0 36.0 31.6 Low Malvin Pascual [facility], [facility], [address] [place] [address] [facility] 03/18 Lymph ocyte s/100 leuko cytes in Blood by Flow cytom etry (FC) 20.5 45.5 31.6 Rosetta l [facility], [address] [place] [address] [facility] 03/18 HCT 37.0 47.0 30.4 Low Malvin Pascual [facility], [facility], [address] [place] [address] [facility] 03/18 Basop hils [#/vo lume] in Blood by Autom ated count 0.0 0.1 0.04 Rosetta l [facility], [address] [place] [address] [facility] 03/18 Lymph ocyte s [#/vo lume] in Blood by Autom ated count 1.3 2.9 1.27 Low Malvin Pascual [facility], [facility], [address] [place] [address] [facility] 03/18 Hemog lobin [Mass /volu me] in Blood 12.0 16.0 9.6 Low Malvin Pascual [facility], [address] [facility] [address] [facility] 03/18 Neutr ophil s [#/vo lume] in Blood by Autom ated count 2.2 4.8 2.22 Rosetta l Malvin Pascual Source, [facility], [address] [place] [address] [facility] 03/18 Leuko cytes [#/vo lume] in Blood by Autom ated count 4.8 10.8 4.0 Low Malvin Pascual Source, [facility], [address] [place] [address] [facility] 03/18 Monoc ytes [#/vo lume] in Blood by Autom ated count 0.3 0.8 0.32 Rosetta l [facility], [facility], [address] [place] [address] [facility] 03/18 Eryth rocyt es [#/vo lume] in Blood by Autom ated count 4.2 5.4 3.88 Low [facility], [address] [place] [address] [facility] 03/18 Plate lets [#/vo lume] in Blood by Autom ated count 130.0 400.0 205 [facility], [address] [place] [address] [facility] 03/18 Segme nted neutr ophil s/100 leuko cytes in Blood by Autom ated count 43.0 65.0 55.2 Rosetta l Malvin Pascual [facility], [facility], [address] [place] [address] [facility] 03/18 MCH 27.0 31.0 24.7 Low [facility] Pascual [facility], [address] [place] [address] [facility] 03/18 Eryth rocyt e distr ibuti on width [Rati o] by Autom ated count 11.5 15.5 19.0 High Malvin Pascual [facility], [address] [place] [address] [facility] 04/02 MRILU MB*- [facility] [address] [facility] [place] [address] Radiolo gy ReportP atient: FISH MAURER letha: 5 0800 Date of Service : 5Acct #: [id number]: [id number]/ AGE/SEX :05/18/ 1979 / 44 / FRoom/B ed: Locatio n: [place] RADAcce ssion: [id number] : MRI Pelvis W W/O Cont Reason: RECTAL CAOrder ing Provide r: Samara,At if [facility] ding Provide r: Samara,At if [facility]: Indira Coombs; Abigail blunt MD, [facility] K; Samara PEREZ, AtifRep ort Number: [id number] atient total CT exams last year 5MRI [...] MD, Remy Dorsey 5 1531 SCHEDUL ED [facility] 03/18 A/G ratio 1.1 2.2 1.30 Rosetta l [facility], [address] [facility] [address] [facility] 03/18 Gluco se [Mass /volu me] in Serum or Plasm a 74.0 106.0 95 Rosetta l [facility], [address] [place] [address] [facility] 03/18 Alkal ine phosp hatas e [Enzy matic activ ity/v olume ] in Serum or Plasm a 38.0 126.0 114 Rosetta l [facility], [address] [place] [address] [facility] 03/18 Globu lesli 2.2 4.2 2.9 Ros[place] l [facility], [address] [place] [address] [facility] 03/18 Creat inine [Mass /volu me] in Serum or Plasm a 0.7 1.2 0.8 Rosetta l [facility], [address] [place] [address] [facility] 03/18 Carbo n dioxi de, total [Mole s/vol ume] in Serum or Plasm a 22.0 30.0 29 [place] [facility], [facility], [address] [place] [address] [facility] 03/18 Aspar diana amino trans feras e [Enzy matic activ ity/v olume ] in Serum or Plasm a 14.0 36.0 31 Rosetta l [facility], [facility], [address] [place] [address] [facility] 03/18 Potas sium [Mole s/vol ume] in Serum or Plasm a 3.5 5.1 3.0 Low [facility], [address] [place] [address] [place] [address] [facility] 03/18 Bilir ubin, total 0.2 1.3 0.30 Rosetta l [facility], [address] [place] [address] [facility] 03/18 Urea nitro gen/C reati nine [Mass Ratio ] in Blood 12.0 20.0 12.5 Rosetta l [facility], [address] [place] [address] [facility] 03/18 Prote in [Mass /volu me] in Serum or Plasm a 6.3 8.2 6.7 Rosetta l [facility], [facility], [address] [place] [address] [facility] 03/18 Osmol ality , calcu lated , mOs/k g 261.0 280.0 276 Rosetta l [facility], [facility] [place] [address] [facility] 03/18 Sodiu m 137.0 145.0 139 [place] l [facility], [facility], [address] [facility] [address] [facility] 03/18 Darvin ne amino trans feras e [Enzy matic activ ity/v olume ] in Serum or Plasm a 0.0 34.0 22 Rosetta l [facility], [address] [place] [address] [facility] 03/18 Anion gap 4.0 12.0 5 Rosetta l [facility], [address] [place] [address] [facility] 03/18 Album in [Mass /volu me] in Serum or Plasm a 3.5 5.0 3.8 Rosetta l [facility], [address] [place] [address] [facility] 03/18 Chlor ronny 98.0 107.0 105 Ros[place] l [facility], [address] [place] [address] [facility] 03/18 BUN 7.0 17.0 10 Rosetta l [facility], [address] [place] [address] [facility] 03/18 Glome rular filtr ation rate/ 1.73 sq M.pre dicte d [Volu me Rate/ Area] in Serum , Plasm a or Blood by Creat inine -base d formu la (CKD- EPI) 90.0 120.0 94 >=90 [id number] Mildly Decreased 45-59 Mildly to Moderatel y Decreased 30-44 Moderatel y to Severely Decreased 15-29 Severely Decreased <15 Kidney Failure [facility], [address] [place] [address] [facility] 03/18 Calci um [Mass /volu me] in Blood 8.4 10.2 8.6 Rosetta l [facility], [address] [place] [address] [facility] 04/24 Surgi davidson patho logy SEE PATH REPORT FINAL [facility], [address] [place] [address] [facility] [address] [facility] 02/04 Magy tin [Mass /volu me] in Serum or Plasm a by Immun oassa y 6.24 137.0 10.70 Rosetta l [facility], [address] [place] [address] [facility] 02/26 Immat ure granu locyt es [Pres ence] in Blood by Autom ated count 0.0 0.7 0.3 Rosetta l [facility] 02/26 Granu locyt es, immat ure, x 10^3/ uL (M) 0.0 0.06 0.03 Rosetta l [facility] 02/26 PFA - Epi plate let count 150.0 450.0 329 Rosetta l 1051, 02/26/25 [facility] 02/04 Vitam in B12 defic iency panel Vitam in B12 239.0 931.0 290.0 Rosetta l [facility], [address] [place] [address] [facility] 02/04 CEA panel Carci noemb ryoni c Ag [Mass /volu me] in Serum or Plasm a 0.0 3.0 91.40 High [facility], [address] [place] [address] [facility] Medications Administered Date Name Route Dose Frequency [...] Date End Date Status Fluoxetine Oral daily active Celecoxib Oral BID ac tive Methocarbamol Oral QID PRN active Clonazepam Oral daily PRN active Zolpidem Oral Tablet hs active 01/20 Solu-Cortef intravenously 100.0 mg Re-initiate treatment only upon physician approval. 2025 active 01/20 famotidine 10 MG/ML Injectable Solution intravenously 20.0 mg Re-initiate treatment only upon physician approval. 2025 active 01/20 Solu-Medrol intravenously 125.0 mg Re-initiate treatment only upon physician approval. 2025 active 01/20 5 ML zoledronic acid 0.8 MG/ML Injection intravenously 4.0 mg once 2025 active 01/20 Diphenhydramin e IV intravenously 50.0 mg Re-initiate treatment only upon physician approval. 2025 active 01/20 1 ML epinephrine 1 MG/ML Injection intramuscularly 0.3 mg once Re-initiate treatment only upon physician approval. 2025 active 12/23 5 ML zoledronic acid 0.8 MG/ML Injection intravenously 4.0 mg once 2025 active 12/23 1 ML epinephrine 1 MG/ML Injection intramuscularly 0.3 mg once Re-initiate treatment only upon physician approval. 2025 active 12/23 Diphenhydramin e IV intravenously 50.0 mg Re-initiate treatment only upon physician approval. 2025 active 12/23 Solu-Cortef intravenously 100.0 mg Re-initiate treatment only upon physician approval. 2025 active 12/23 famotidine 10 MG/ML Injectable Solution intravenously 20.0 mg Re-initiate treatment only upon physician approval. 2025 active 12/23 Solu-Medrol intravenously 125.0 mg Re-initiate treatment only upon physician approval. 2025 active 11/25 famotidine 10 MG/ML Injectable Solution intravenously 20.0 mg Re-initiate treatment only upon physician approval. 2025 active 11/25 5 ML zoledronic acid 0.8 MG/ML Injection intravenously 4.0 mg once 2025 active 11/25 Diphenhydramin e IV intravenously 50.0 mg Re-initiate treatment only [...] intravenously 4.0 mg once 2025 active 10/28 Solu-Cortef intravenously 100.0 mg Re-initiate treatment only upon physician approval. 2025 active 10/28 Diphenhydramin e IV intravenously 50.0 mg Re-initiate treatment only upon physician approval. 2025 active 09/30 famotidine 10 MG/ML Injectable Solution intravenously 20.0 mg Re-initiate treatment only upon physician approval. 2025 active 09/30 Solu-Medrol intravenously 125.0 mg Re-initiate treatment only upon physician approval. 2025 active 09/30 Diphenhydramin e IV intravenously 50.0 mg Re-initiate treatment only upon physician approval. 2025 active 09/30 1 ML epinephrine 1 MG/ML Injection intramuscularly 0.3 mg once Re-initiate treatment only upon physician approval. 2025 active 09/30 5 ML zoledronic acid 0.8 MG/ML Injection intravenously 4.0 mg once 2025 active 09/30 Solu-Cortef intravenously 100.0 mg Re-initiate treatment only upon physician approval. 2025 active 09/02 1 ML epinephrine 1 MG/ML Injection intramuscularly 0.3 mg once Re-initiate treatment only upon physician approval. 2024 active 09/02 famotidine 10 MG/ML Injectable Solution intravenously 20.0 mg Re-initiate treatment only upon physician approval. 2024 active 09/02 Solu-Cortef intravenously 100.0 mg Re-initiate treatment only upon physician approval. 2024 active 09/02 Diphenhydramin e IV intravenously 50.0 mg Re-initiate treatment only upon physician approval. 2024 active 09/02 Solu-Medrol intravenously 125.0 mg Re-initiate treatment only upon physician approval. 2024 active 09/02 5 ML zoledronic acid 0.8 MG/ML Injection intravenously 4.0 mg once 2024 active 08/05 Solu-Medrol intravenously 125.0 mg Re-initiate treatment only upon physician approval. 2024 active 08/05 1 ML epinephrine 1 MG/ML Injection intramuscularly 0.3 mg once Re-initiate treatment only upon physician approval. 2024 active 08/05 Solu-Cortef intravenously 100.0 mg Re-initiate treatment only upon physician approval. 2024 active 08/05 Diphenhydramin e IV intravenously 50.0 mg Re-initiate treatment only upon physician approval. 2024 active 08/05 famotidine 10 MG/ML Injectable Solution intravenously 20.0 mg Re-initiate treatment only upon physician approval. 2024 active 08/05 5 ML zoledronic acid 0.8 MG/ML Injection intravenously 4.0 mg once 2024 active 07/22 dexamethasone phosphate 4 MG/ML Injectable Solution intravenously 10.0 mg once 2024 active 07/22 fluorouracil 50 MG/ML Injectable Solution intravenously 850.0 mg once 2024 active 07/22 granisetron 1 MG/ML Injectable Solution intravenously 1000.0 mcg once 2024 active 07/22 diphenhydramin e hydrochloride 0.5 MG/ML Injectable Solution intravenously 50.0 [...] only upon physician approval. 2024 active 07/22 methylpredniso lone 2000 MG Injection intravenously 125.0 mg Re-initiate [...] to drug stability guidelines. 2024 active 07/08 Solu-Medrol intravenously 125.0 mg Re-initiate treatment only upon physician approval. 2024 active 07/08 1 ML epinephrine 1 MG/ML Injection intramuscularly 0.3 mg once Re-initiate treatment only upon physician approval. 2024 active 07/08 granisetron 1 MG/ML Injectable Solution intravenously 1000.0 mcg once 2024 active 07/08 hydrocortisone 100 MG Injection intravenously 100.0 mg Re-initiate treatment only upon physician approval. 2024 active 07/08 diphenhydramin e hydrochloride 0.5 MG/ML Injectable Solution intravenously 50.0 mg Re-initiate treatment only upon physician approval. 2024 active 07/08 fluorouracil 50 MG/ML Injectable Solution via continuous infusion 5000.0 mg once TOTAL CIV CYCLE DOSE = 2400 mg/m2 CIV over 46 hours. Patient to be seen for a pump disconnect on Day 3. Refer to drug stability guidelines. 2024 active 07/08 famotidine 10 MG/ML Injectable Solution intravenously 20.0 mg Re-initiate treatment only upon physician approval. 2024 active 07/08 dexamethasone phosphate 4 MG/ML Injectable Solution intravenously 10.0 mg once 2024 active 07/08 5 ML zoledronic acid 0.8 MG/ML Injection intravenously 4.0 mg once 2024 active 07/08 methylpredniso lone 2000 MG Injection intravenously 125.0 mg Re-initiate treatment only upon physician approval. 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 Dilute in NS or D5W. 2024 active 07/08 Solu-Cortef intravenously 100.0 mg Re-initiate treatment only upon physician approval. 2024 active 07/08 Oxaliplatin IV intravenously 180.0 mg once Not compatible with NS.Oxaliplati n is an irritant. 2024 active 07/08 Diphenhydramin e IV intravenously 50.0 mg Re-initiate treatment only [...] to drug stability guidelines. 2024 active 06/24 hydrocortisone 100 MG Injection intravenously 100.0 mg Re-initiate treatment only upon physician approval. 2024 active 06/24 methylpredniso lone 2000 MG Injection intravenously 125.0 mg Re-initiate treatment only upon physician approval. 2024 active 06/24 famotidine 10 MG/ML Injectable Solution intravenously 20.0 mg Re-initiate treatment only upon physician approval. 2024 active 06/24 diphenhydramin e hydrochloride 0.5 MG/ML Injectable Solution intravenously 50.0 mg Re-initiate treatment only upon physician approval. 2024 active 06/24 dexamethasone phosphate 4 MG/ML Injectable Solution intravenously 10.0 mg once 2024 active 06/24 Oxaliplatin IV intravenously 180.0 mg once Not compatible with NS.Oxaliplati n is an irritant. 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 Dilute in NS or D5W. 2024 active 06/24 granisetron 1 MG/ML Injectable Solution intravenously 1000.0 mcg once 2024 active 06/24 fluorouracil 50 MG/ML Injectable Solution intravenously 850.0 mg once 2024 active 06/10 Solu-Cortef intravenously 100.0 mg Re-initiate treatment only upon physician approval. 2024 active 06/10 famotidine 10 MG/ML Injectable Solution intravenously 20.0 mg Re-initiate treatment only upon physician approval. 2024 active 06/10 granisetron 1 MG/ML Injectable Solution intravenously 1000.0 mcg once 2024 active 06/10 methylpredniso lone 2000 MG Injection intravenously 125.0 mg Re-initiate [...] in NS or D5W. 2024 active 06/10 1 ML epinephrine 1 MG/ML Injection intramuscularly 0.3 mg once Re-initiate treatment only upon physician approval. 2024 active 06/10 5 ML zoledronic acid 0.8 MG/ML Injection intravenously 4.0 mg once 2024 active 06/10 dexamethasone phosphate 4 MG/ML Injectable Solution intravenously 10.0 mg once 2024 active 06/10 diphenhydramin e hydrochloride 0.5 MG/ML Injectable Solution intravenously 50.0 mg Re-initiate treatment only upon physician approval. 2024 active 06/10 fluorouracil 50 MG/ML Injectable Solution via continuous infusion 5000.0 mg once TOTAL CIV CYCLE DOSE = 2400 mg/m2 CIV over 46 hours. Patient to be seen for a pump disconnect on Day 3. Refer to drug stability guidelines. 2024 active 06/10 Diphenhydramin e IV intravenously 50.0 mg Re-initiate treatment only upon physician approval. 2024 active 06/10 fluorouracil 50 MG/ML Injectable Solution intravenously 850.0 mg once 2024 active 05/27 hydrocortisone 100 MG Injection intravenously 100.0 mg Re-initiate treatment only upon physician approval. 2024 active 05/27 fluorouracil 50 MG/ML Injectable Solution intravenously 850.0 mg once 2024 active 05/27 methylpredniso lone 2000 MG Injection intravenously 125.0 mg Re-initiate treatment only upon physician approval. 2024 active 05/27 dexamethasone phosphate 4 MG/ML Injectable Solution intravenously 10.0 mg once 2024 active 05/27 granisetron 1 MG/ML Injectable Solution intravenously 1000.0 mcg once 2024 active 05/27 fluorouracil 50 MG/ML Injectable [...] only upon physician approval. 2024 active 05/27 diphenhydramin e hydrochloride 0.5 MG/ML Injectable Solution intravenously 50.0 mg Re-initiate treatment only upon physician approval. 2024 active 05/27 Oxaliplatin IV intravenously 180.0 mg once Not compatible with NS.Oxaliplati n is an irritant. 2024 active 05/27 leucovorin 50 MG Injection intravenously 850.0 mg once Use 350 mg/m2 for bile duct and gallbladder cancers. Dilute in NS or D5W. 2024 active 05/13 hydrocortisone 100 MG Injection [...] intravenously 10.0 mg once 2024 active 05/13 diphenhydramin e hydrochloride 0.5 MG/ML Injectable Solution intravenously 50.0 mg Re-initiate treatment only upon physician approval. 2024 active 05/13 Solu-Cortef intravenously 100.0 mg Re-initiate treatment only upon physician approval. 2024 active 05/13 Oxaliplatin IV intravenously 180.0 mg once Not compatible with NS.Oxaliplati n is an irritant. 2024 active 05/13 fluorouracil 50 MG/ML Injectable Solution intravenously 850.0 mg once 2024 active 05/13 Diphenhydramin e IV intravenously 50.0 mg Re-initiate treatment only [...] in NS or D5W. 2024 active 05/13 methylpredniso lone 2000 MG Injection intravenously 125.0 mg Re-initiate treatment only upon physician approval. 2024 active 04/29 diphenhydramin e hydrochloride 0.5 MG/ML Injectable Solution intravenously 50.0 [...] n is an irritant. 2024 active 04/29 granisetron 1 MG/ML Injectable Solution intravenously 1000.0 mcg once 2024 active 04/29 hydrocortisone 100 MG Injection intravenously 100.0 mg Re-initiate treatment only upon physician approval. 2024 active 04/29 methylpredniso lone 2000 MG Injection intravenously 125.0 mg Re-initiate treatment only upon physician approval. 2024 active 04/29 dexamethasone phosphate 4 MG/ML Injectable Solution intravenously 10.0 mg once 2024 active 04/29 leucovorin 50 MG Injection intravenously 850.0 mg once Use 350 mg/m2 for bile duct and gallbladder cancers. Dilute in NS or D5W. 2024 active 04/29 famotidine 10 MG/ML Injectable Solution intravenously 20.0 mg Re-initiate treatment only upon physician approval. 2024 active 04/29 fluorouracil 50 MG/ML Injectable Solution intravenously 850.0 mg once 2024 active 04/29 1 ML epinephrine 1 [...] 4 to 6 hours 2024 active 04/15 dexamethasone phosphate 4 MG/ML Injectable Solution intravenously 10.0 mg once 2024 active 04/15 granisetron 1 MG/ML Injectable Solution intravenously 1000.0 mcg once 2024 active 04/15 Oxaliplatin IV intravenously 180.0 mg once Not compatible with NS.Oxaliplati n is an irritant. 2024 active 04/15 1 ML epinephrine 1 MG/ML Injection intramuscularly 0.3 mg once Re-initiate treatment only upon physician approval. 2024 active 04/15 methylpredniso lone 2000 MG Injection intravenously 125.0 mg Re-initiate treatment only upon physician approval. 2024 active 04/15 Solu-Cortef intravenously 100.0 mg Re-initiate treatment only upon physician approval. 2024 active 04/15 Solu-Medrol intravenously 125.0 mg Re-initiate treatment only upon physician approval. 2024 active 04/15 Diphenhydramin e IV intravenously 50.0 mg Re-initiate treatment only upon physician approval. 2024 active 04/15 leucovorin 50 MG Injection intravenously 850.0 mg once Use 350 mg/m2 for bile duct and gallbladder cancers. Dilute in NS or D5W. 2024 active 04/15 hydrocortisone 100 MG Injection intravenously 100.0 mg Re-initiate treatment only upon physician approval. 2024 active 04/15 fluorouracil 50 MG/ML Injectable Solution intravenously 850.0 mg once 2024 active 04/15 5 ML zoledronic acid 0.8 MG/ML Injection intravenously 4.0 mg once 2024 active 04/15 diphenhydramin e hydrochloride 0.5 MG/ML Injectable Solution intravenously 50.0 mg Re-initiate treatment only upon physician approval. 2024 active 04/15 fluorouracil 50 MG/ML Injectable Solution via continuous infusion 5000.0 mg once TOTAL CIV CYCLE DOSE = 2400 mg/m2 CIV over 46 hours. Patient to be seen for a pump disconnect on Day 3. Refer to drug stability guidelines. 2024 active 04/15 famotidine 10 MG/ML Injectable Solution intravenously 20.0 mg Re-initiate treatment only upon physician approval. 2024 active 04/14 methadone hydrochloride 10 MG Oral Tablet orally 1.0 tablet 1 to 3 times daily 04/14 inactive 04/01 diphenhydramin e hydrochloride 0.5 MG/ML Injectable Solution intravenously 50.0 mg Re-initiate treatment only upon physician approval. 2024 active 04/01 methylpredniso lone 2000 MG Injection intravenously 125.0 mg Re-initiate treatment only upon physician approval. 2024 active 04/01 1 ML epinephrine 1 MG/ML Injection intramuscularly 0.3 mg once Re-initiate treatment only upon physician approval. 2024 active 04/01 granisetron 1 MG/ML Injectable Solution intravenously 1000.0 mcg once 2024 active 04/01 hydrocortisone 100 MG Injection intravenously 100.0 mg Re-initiate treatment only upon physician approval. 2024 active 04/01 leucovorin 50 MG Injection intravenously 850.0 mg once Use 350 mg/m2 for bile duct and gallbladder cancers. Dilute in NS or D5W. 2024 active 04/01 fluorouracil 50 MG/ML Injectable Solution intravenously 850.0 mg once 2024 active 04/01 famotidine 10 MG/ML Injectable Solution intravenously 20.0 mg Re-initiate treatment only upon physician approval. 2024 active 04/01 Oxaliplatin IV intravenously 180.0 mg once Not compatible with NS.Oxaliplati n is an irritant. 2024 active 04/01 fluorouracil 50 MG/ML Injectable Solution via continuous infusion 5000.0 mg once TOTAL CIV CYCLE DOSE = 2400 mg/m2 CIV over 46 hours. Patient to be seen for a pump disconnect on Day 3. Refer to drug stability guidelines. 2024 active 04/01 dexamethasone phosphate 4 MG/ML Injectable Solution intravenously 10.0 mg once 2024 active 03/18 atropine sulfate 0.025 MG / diphenoxylate hydrochloride 2.5 MG Oral Tablet [Lomotil] orally 2.5 mg 4 times per day 2024 active 03/18 1 ML epinephrine 1 MG/ML Injection intramuscularly 0.3 mg once Re-initiate treatment only upon physician approval. 2024 active 03/18 famotidine 10 MG/ML Injectable Solution intravenously 20.0 mg Re-initiate treatment only upon physician approval. 2024 active 03/18 methylpredniso lone 2000 MG Injection intravenously 125.0 mg Re-initiate treatment only upon physician approval. 2024 active 03/18 diphenhydramin e hydrochloride 0.5 MG/ML Injectable Solution intravenously 50.0 mg Re-initiate treatment only upon physician approval. 2024 active 03/18 Solu-Medrol intravenously 125.0 mg Re-initiate treatment only upon physician approval. 2024 active 03/18 hydrocortisone 100 MG Injection intravenously 100.0 mg Re-initiate treatment only upon physician approval. 2024 active 03/18 Solu-Cortef intravenously 100.0 mg Re-initiate treatment only upon physician approval. 2024 active 03/18 Diphenhydramin e IV intravenously 50.0 mg Re-initiate treatment only [...] only upon physician approval. 2024 active 03/04 methylpredniso lone 2000 MG Injection intravenously 125.0 mg Re-initiate treatment only upon physician approval. 2024 active 03/04 1 ML epinephrine 1 MG/ML Injection intramuscularly 0.3 mg once Re-initiate treatment only upon physician approval. 2024 active 03/04 diphenhydramin e hydrochloride 0.5 MG/ML Injectable Solution intravenously 50.0 [...] 1.0 tablet 1 to 3 times daily 03/03 inactive 02/18 hydrocortisone 100 MG Injection intravenously 100.0 mg Re-initiate treatment only upon physician approval. 2024 active 02/18 1 ML epinephrine 1 MG/ML Injection intramuscularly 0.3 mg once Re-initiate treatment only upon physician approval. 2024 active 02/18 diphenhydramin e hydrochloride 0.5 MG/ML Injectable Solution intravenously 50.0 mg Re-initiate treatment only upon physician approval. 2024 active 02/18 famotidine 10 MG/ML Injectable Solution intravenously 20.0 mg Re-initiate treatment only upon physician approval. 2024 active 02/18 methylpredniso lone 2000 MG Injection intravenously 125.0 mg Re-initiate treatment only upon physician approval. 2024 active 02/18 prochlorperazi ne 10 MG Oral Tablet orally 1.0 tablet [...] Order RTC MD Ordered 02/13/2025 Physician Order MRI brain w/ & w /o contrast Metastatic colon cancer, brain metastasis, headache Ordered 02/13/[address] abdomen/pelvi s w/ contrast Initial staging: Colon cancer North Complex Ordered 02/18/2025 Physician Order Blood draw via port Administered 03/04/2025 Physician Order Blood draw via port Administered 03/06/2025 Physician Order Transfusion of p acked red blood cells (procedure) D/C 03/13/2025 Physician Order Venipuncture for blood test (procedure) Administered 03/18/2025 Physician Order Blood draw via port Administered 04/01/2025 Physician Order MRI pelvis w/ an d w/o contrast Rectal cancer Ordered 04/22/[address] chest w/ IV contrast A t North complex, restaging metastatic rectal cancer with lung metastasis Ordered 04/29/2025 Physician Order RTC MD telemedicine after CT chest Ordered Social History Date Name Value 02/04/2025 Smoking Status Former smoker Sex Female Vital Signs Date Type Value 02/04/2025 BSA 2.13 02/04/2025 Heart Beat 92.00 02/04/2025 Intravascular Systolic 168 02/04/2025 Intravascular Diastolic 111 02/04/2025 BMI 35.49 02/04/2025 Height 67.00 02/04/2025 Weight 226.60 02/04/2025 Pain Scale 0.00 02/17/2025 Pain Scale 0.00 02/17/2025 Intravascular Systolic 122 02/17/2025 Intravascular Diastolic 88 02/17/2025 Heart Beat 94.00 02/17/2025 Weight 224.60 02/17/2025 BSA 2.12 02/17/2025 BMI 35.18 02/17/2025 Height 67.00 02/18/2025 Body Temperature 97.70 02/18/2025 Heart Beat 81.00 02/18/2025 Intravascular Systolic 124 02/18/2025 Intravascular Diastolic 86 02/18/2025 Weight 225.60 02/18/2025 Pain Scale 0.00 02/18/2025 BMI 35.33 02/18/2025 Height 67.00 02/18/2025 BSA 2.13 03/04/2025 BSA 2.14 03/04/2025 BMI 35.71 03/04/2025 Height 67.00 03/04/2025 Weight 228.00 03/04/2025 Heart Beat 86.00 03/04/2025 Body Temperature 97.30 03/04/2025 Pain Scale 0.00 03/04/2025 Intravascular Systolic 132 03/04/2025 Intravascular Diastolic 86 03/18/2025 BSA 2.12 03/18/2025 Height 67.00 03/18/2025 Weight 223.60 03/18/2025 Intravascular Systolic 130 03/18/2025 Intravascular Diastolic 84 03/18/2025 Heart Beat 75.00 03/18/2025 Body Temperature 97.50 03/18/2025 Pain Scale 0.00 03/18/2025 BMI 35.02 04/22/2025 Heart Beat 119.00 04/22/2025 Intravascular Systolic 111 04/22/2025 Intravascular Diastolic 73 04/22/2025 Pain Scale 0.00 04/22/2025 BSA 2.06 04/22/2025 BMI 32.83 04/22/2025 Height 67.00 04/22/2025 Weight 209.60
--- OUTSIDE RECORDS SUMMARY | 2025-04-24 22:32 | XMS_ITS ---
Author Name Interface, [id number] lity Address [address] [place] [id number] [facility] Address [address] [place] [id number] Allergies and Adverse Reactions Medication/Group Name Reaction Severity Date azithromycin 02/18/2025 Plan Date Type Value 04/22/2025 APPOINTMENT ONC FOLLOW-UP 04/22/[address] chest w/ IV c ontrast Reason for Visit ONC FOLLOW-UP Encounters Date Name 04/22/2025 Rectal cancer Diagnostic Results Date Type Test Units Lower Limit Upper Limit Result Flag Comments Status Ordered By Specimen Source Lab Address 04/24 [facility] SEE PATH REPORT FINAL Malvin Pascual Source, Unspecifi ed [facility], [address] [place] [address] Medications Date Name Route Dose Frequency Instructions [...] metastasis Active Vital Signs Date Type Value 04/22/2025 Heart Beat 119.00 04/22/2025 Intravascular Systolic 111 04/22/2025 Intravascular Diastolic 73 04/22/2025 Pain Scale 0.00 04/22/2025 BSA 2.06 04/22/2025 Height 67.00 04/22/2025 BMI 32.83 04/22/2025 Weight 209.60
--- OUTSIDE RECORDS SUMMARY | 2025-04-24 22:32 | XMS_ITS ---
Author Name Interface, [id number] lity Address [address] [place] [id number] [facility] Address [address] [place] [id number] Allergies and Adverse Reactions Medication/Group Name Reaction [...] REPORT FINAL Malvin Pascual Source, Unspecifi ed [facility], [address] [place] [address] Medications Date Name Route Dose Frequency Instructions [...]
--- OUTSIDE RECORDS SUMMARY | 2025-04-24 22:33 | XMS_ITS ---
Author Name Interface, [id number] lity Address [facility] [place] [address] [facility] Address [facility] [place] [address] Allergies and Adverse Reactions Plan Reason for Visit Encounters Diagnostic Results Medications Problems Vital Signs
[2025-04-25] VITALS (16 sets, daily range): BP systolic 88–121; BP diastolic 17–94; PULSE 80–96; RESP 15–18; TEMP 36.8–36.9; O2SAT 91–98; BMI 33.9
[2025-04-25 01:24] LABS: Hematocrit 31.0 % (36-47); Hemoglobin 9.70 g/dL (11.27-16.99); Mean Corpuscular HGB Conc 31.3 g/dL (30-55); Mean Corpuscular Hemoglobin 24.4 pg (27-33); Mean Corpuscular Volume 77.9 fl (85-98); Nucleated Red Blood Cells % 0 %; Platelet Count 681 10^3/cmm (157-399); Red Blood Count 3.98 10^6/uL (3.85-5.65); White Blood Count 22.82 10^3/uL (3.29-11.43)
[2025-04-25 01:45] LABS: Alanine Aminotransferase < 5 U/L (0-33); Albumin Level 3.5 g/dL (3.5-5.2); Alkaline Phosphatase 104 U/L (35-105); Anion Gap 18.2 (5-19); Aspartate Amino Transferase 8 U/L (0-32); Blood Urea Nitrogen 10 mg/dL (6-20); Calcium 8.6 mg/dL (8.5-10.5); Carbon Dioxide 21 mmol/L (22-29); Chloride 102 mmol/L (98-107); Creatinine Clr Calc Pharmacy 105.2102; Globulin 4.3 g/dL (1.3-4.6); Glucose 128 mg/dL (65-115); Osmolality Calculated 285 mOsm/kg (285-295); Potassium 4.2 mmol/L (3.5-5.1); Sodium 137 mmol/L (136-145); Total Protein 7.8 g/dL (6.6-8.7)
--- NOTE | 2025-04-25 02:03 | CTR_ITS ---
PROCEDURE INFORMATION: Exam: CT Abdomen And Pelvis With Contrast Exam date and time: 04/25/2025 4:29 AM Age: 44 years old Clinical indication: Abdominal pain; Epigastric; Additional info: Severe llq abd pain in setting of stage 4 colon cancer TECHNIQUE: Imaging protocol: Computed tomography of the abdomen and pelvis with contrast. Radiation optimization: All CT scans at this facility use at least one of these dose optimization techniques: automated exposure control; mA and/or kV adjustment per patient size (includes targeted exams where dose is matched to clinical indication); or iterative reconstruction. Contrast material: OMNI 350; Contrast volume: 100 ml; Contrast route: INTRAVENOUS (IV); COMPARISON: CT abdomen pelvis w con* [id number] 04/13/2025 3:36 PM RADIATION DOSE METRICS: Total DLP (mGy-cm): 1006.57 FINDINGS: Lung bases: There are lobular pulmonary lesions associated with the both lower consistent with metastases. No consolidation. Liver: Diffuse hepatic steatosis. No mass. Gallbladder and biliary ducts: Cholecystectomy. No ductal dilation. Pancreas: Normal. No ductal dilation. Spleen: Normal. No splenomegaly. Adrenal glands: Normal. No mass. Kidneys and ureters: Normal. No hydronephrosis. Stomach and bowel: Circumferential thickening of the wall of the distal sigmoid colon is noted. Dilatation of the sigmoid colon extending into this area of abnormal thickening is noted. Findings are similar on interval comparison Appendix: No evidence of appendicitis. Intraperitoneal space: Unremarkable. No free air. No significant fluid collection. Vasculature: Unremarkable. No abdominal aortic aneurysm. Lymph nodes: Unremarkable. No enlarged lymph nodes. Urinary bladder: Unremarkable as visualized. Reproductive: Unremarkable as visualized. Bones/joints: Unremarkable. No acute fracture. Soft tissues: Unremarkable. CT/CT abdomen pelvis w con* [id number] IMPRESSION: 1. There is circumferential thickening of the wall of the distal sigmoid which may be pathologic. Similar on interval comparison. Endoscopic evaluation may be considered. 2. Pulmonary metastases are noted.
[2025-04-25] MEDS: HYDROmorphone 0.5 MG/0.5 ML INJ 1 MG IVP ×6 (02:21→21:45)
[2025-04-25 02:22] LABS: Lactic Sepsis W/Reflex 1.3 mmol/L (0.5-2.2)
[2025-04-25] MEDS: ondansetron 2 mg/ML SDV 2 mL 8 MG IVP (02:22)
--- NOTE | 2025-04-25 03:09 | XRR_ITS ---
PROCEDURE INFORMATION: Exam: XR Chest Exam date and time: 04/25/2025 3:08 AM Age: 44 years old Clinical indication: Condition or disease; Other: Colon CA; Additional info: Check power rating of port for CT TECHNIQUE: Imaging protocol: Radiologic exam of the chest. Views: 1 view. COMPARISON: CT chest w con* [id number] 11/13/2024 8:32 PM FINDINGS: Tubes, catheters and devices: Left Port-A-Cath in the SVC. Lungs: 2.6 cm mass in the left lung base. No focal lung consolidation Pleural spaces: Unremarkable. No pleural effusion. No pneumothorax. Heart/Mediastinum: Unremarkable. No cardiomegaly. Bones/joints: Unremarkable. XR/XR chest 1V portable [id number] IMPRESSION: 1. 2.6 cm mass in the left lung base. 2. Left Port-A-Cath in the SVC.
[2025-04-25] MEDS: iohexol 350 mg/mL 500 mL Btl (per mL) IV (04:24)
[2025-04-25 04:29] LABS: Glucose Urine UA Negative (Normal); Nitrate Urine Negative (Negative); Specific Gravity, Urine 1.007 (1.005-1.030)
[2025-04-25 04:33] LABS: Add Urine Microscopic? YES
[2025-04-25] MEDS: metroNIDAZOLE IV 500 MG/100 ML PREMIX 100 MG IV ×3 (05:45→21:58)
--- NOTE | 2025-04-25 06:14 | W.ED.ABDPA2 ---
Documented by User: David Booker MD 04/25/25 06:23 HPI - Abdominal Pain General: Chief Complaint: Abdominal Pain Stated Complaint: ABD Pain Time Seen by Provider: 04/25/25 01:41 Source: patient and family Mode of arrival: ambulatory Limitations: no limitations History of Present Illness: Patient comes in for home with a 9/10 abd pain for 1 month. 10 out of 10 tonight. Reports her chemotherapy and radiation has worsened her pain. She was has some rectal bleeding that has resolved. She has stage IV colon cancer. She has been seen by her doctor and prescribed an increase in pain medication but is not experiencing any relief. Was recently seen in the ER and diagnosed with diverticulitis was offered recommended admission but chose to go home on p.o. antibiotics and will follow-up with her doctors. Patient has returned due to worsening condition. Related Data Home Medications ?Medication ?Instructions ?Recorded ?Confirmed celecoxib 100 mg capsule 100 mg PO BID 04/13/25 04/13/25 cholestyramine (with sugar) 4 gram 1 ea PO DAILY 04/13/25 04/13/25 powder for susp in a packet clonazepam 1 mg tablet 1 mg PO DAILY PRN Anxiety 04/13/25 04/13/25 diphenoxylate-atropine 2.5 1 tab PO QID PRN Diarrhea 04/13/25 04/13/25 mg-0.025 mg tablet famotidine 20 mg tablet 20 mg PO BID 04/13/25 04/13/25 fluoxetine 40 mg capsule 40 mg PO DAILY 04/13/25 04/13/25 fluticasone propionate 50 2 spray intranasal DAILY PRN 04/13/25 04/13/25 mcg/actuation nasal allergies spray,suspension gabapentin 300 mg capsule 300 mg PO TID 04/13/25 04/13/25 methadone 10 mg tablet 10 mg PO .1 TO 3 TIMES DAILY 04/13/25 04/13/25 ondansetron HCl 4 mg tablet 4 mg PO .Q6-8H PRN Nausea 04/13/25 04/13/25 oxycodone 5 mg tablet 5 mg PO .Q4-6H PRN Pain 04/13/25 04/13/25 pantoprazole 40 mg tablet,delayed 40 mg PO DAILY 04/13/25 04/13/25 release zolpidem 10 mg tablet 10 mg PO BEDTIME 04/13/25 04/13/25 Previous Rx's ?Medication ?Instructions ?Recorded ciprofloxacin HCl 500 mg tablet 500 mg PO BID #14 tabs 04/13/25 (Cipro) hydrocodone 5 mg-acetaminophen 325 1 tab PO Q6H PRN pain #14 tabs 04/13/25 mg tablet ondansetron 4 mg disintegrating 4 mg PO Q6H PRN nausea and 04/13/25 tablet vomiting #14 tabs Allergies Allergy/AdvReac Type Severity Reaction Status Date / Time azithromycin Allergy ALGY-Rash Verified 11/13/24 18:12 Review of Systems General: Reports: 10 or more systems reviewed and unremarkable except in HPI and below Physical Exam Const: COMMON NORMALS: patient oriented x3, alert and well nourished GENERAL APPEARANCE: well kempt, well developed, in distress (Mild) and ill appearing NUTRITIONAL APPEARANCE: overweight HENMT: COMMON NORMALS: normocephalic, atraumatic, external ears normal and moist oral mucous membranes HEAD & SCALP: normocephalic and atraumatic EXTERNAL EAR: Yes external ears normal Eye: COMMON NORMALS: Equal, round and reactive pupils present, EOMs intact bilaterally and conjunctivae normal CONJUNCTIVA: Yes conjunctivae normal PUPIL: Yes Equal, round and reactive pupils present Neck/C-Spine: COMMON NORMALS: full ROM, no lymphadenopathy and supple Chest: CHEST: Yes Symmetrical chest wall rise and No Surgical scars present (Chest) Resp: COMMON NORMALS: normal respiratory effort, No retractions, No use of accessory muscles and clear to auscultation bilaterally AUSCULTATION: clear to auscultation bilaterally Cardio: COMMON NORMALS: regular rhythm, S1 normal heart sound present, S2 normal heart sound present, No gallops present (Cardio), No clicks present (Cardio), No murmurs present (Cardio) and No rub (Cardio) RHYTHM: regular rhythm HEART SOUNDS: S1 normal heart sound present, S2 normal heart sound present and no murmurs PERIPHERAL PULSES: other (Radial pulses 2+ and symmetric) GI: COMMON NORMALS: Soft to palpation and no masses INSPECTION: Yes abdominal distension (Protuberant abdomen) AUSCULTATION: Yes normoactive bowel sounds PALPATION: Yes Soft to palpation, Yes Tenderness to palpation present (GI) Details: LLQ, Yes Guarding due to palpation present (GI) and No Rigid due to palpation PERCUSSION: normal to percussion : COMMON NORMALS: Yes no CVA tenderness BLADDER/KIDNEY EXAM: Yes no CVA tenderness Back/Pelvis: COMMON NORMALS: no CVA tenderness Extremity: COMMON NORMALS: normal to inspection, full ROM, capillary refill normal and no clubbing, cyanosis or edema Neuro: COMMON NORMALS: patient oriented x3 SENSORIUM/ORIENTATION: Yes alert Psych: APPEARANCE: Yes well kempt Skin: COMMON NORMALS: no rashes or lesions noted, no wounds, turgor normal and no jaundice GENERAL SKIN EXAM: no rashes or lesions noted and turgor normal Course Vital Signs: Vital signs: Vital Signs Temperature 98.1 F 04/24/25 22:25 Pulse Rate 89 04/25/25 07:10 Respiratory Rate 17 04/25/25 07:10 Blood Pressure 111/17 04/25/25 07:10 Pulse Oximetry 98 04/25/25 07:10 Oxygen Delivery Me thod Room Air 04/25/25 07:10 MDM - Abdominal Pain Medical Decision Making Patient with known diverticulitis based on CT scan a week ago. Today CT scan is essentially the same. So continue diverticulitis. Arrives with tachycardia borderline blood pressure with mild tachypnea. Tender abdomen with guarding and rebound. Patient has been started on IV antibiotics. Given Dilaudid for pain medication is her home pain medication of fentanyl patch and breakthrough [place] is not working. UTI that is previously present a week ago is no longer present on lab work. But does have a white count today of 23,000 on the blood work Have paged the hospitalist for admission, but due to shift change will sign the patient out to Dr. Park. Differential Diagnosis Likely abdominal pain, calculus of kidney, constipation, diverticulitis, gastroenteritis, pancreatitis and small bowel obstruction Medical Records I reviewed the patient's medical records. Lab Data I reviewed the patient's lab results. 04/25/25 01:18 04/25/25 01:18 Labs/Radiology: Radiology Impressions Abdomen/Pelvis CT 04/25/25 02:03 IMPRESSION: 1. There is circumferential thickening of the wall of the distal sigmoid which may be pathologic. Similar on interval comparison. Endoscopic evaluation may be considered. 2. Pulmonary metastases are noted. Chest X-Ray 04/25/25 03:09 IMPRESSION: 1. 2.6 cm mass in the left lung base. 2. Left Port-A-Cath in the SVC. Laboratory Results WBC 22.82 10^3/uL (3.29-11.43) H 04/25/25 01:18 RBC 3.98 10^6/uL (3.85-5.65) 04/25/25 01:18 Hgb 9.70 g/dL (11.27-16.99) L 04/25/25 01:18 Hct 31.0 % (36-47) L 04/25/25 01:18 MCV 77.9 fl (85-98) L 04/25/25 01:18 MCH 24.4 pg (27-33) L 04/25/25 01:18 MCHC 31.3 g/dL (30-55) 04/25/25 01:18 RDW 21.3 % (12.1-15.1) H 04/25/25 01:18 Plt Count 681 10^3/cmm (157-399) H 04/25/25 01:18 MPV 9.2 fL (7.4-10.4) 04/25/25 01:18 Neut % (Auto) 83.7 % 04/25/25 01:18 Lymph % (Auto) 9.7 % 04/25/25 01:18 Warren % (Auto) 5.0 % 04/25/25 01:18 Eos % (Auto) 0.4 % 04/25/25 01:18 Baso % (Auto) 0.3 % 04/25/25 01:18 Neut # (Auto) 19.12 10^3/uL (1.8-7.7) H 04/25/25 01:18 Lymph # (Auto) 2.2 10^3/uL (0.8-4.8) 04/25/25 01:18 Warren # (Auto) 1.1 10^3/uL (0.2-0.9) H 04/25/25 01:18 Eos # (Auto) 0.1 10^3/uL (0.0-0.8) 04/25/25 01:18 Baso # (Auto) 0.1 10^3/uL (0.0-0.1) 04/25/25 01:18 Nucleated RBC % (auto) 0 % 04/25/25 01:18 Nucleated RBCs # 0.0 /100WBC 04/25/25 01:18 Sodium 137 mmol/L (136-145) 04/25/25 01:18 Potassium 4.2 mmol/L (3.5-5.1) 04/25/25 01:18 Chloride 102 mmol/L (98-107) 04/25/25 01:18 Carbon Dioxide 21 mmol/L (22-29) L 04/25/25 01:18 Anion Gap 18.2 (5-19) 04/25/25 01:18 BUN 10 mg/dL (6-20) 04/25/25 01:18 Creatinine 0.8 mg/dL (0.5-0.9) 04/25/25 01:18 GFR Calculation 78.3 mL/min (90-130) L 04/25/25 01:18 Glucose 128 mg/dL (65-115) H 04/25/25 01:18 Calculated Osmolality 285 mOsm/kg (285-295) 04/25/25 01:18 Lactic Acid 1.3 mmol/L (0.5-2.2) 04/25/25 01:19 Calcium 8.6 mg/dL (8.5-10.5) 04/25/25 01:18 Total Bilirubin 0.3 mg/dL (0.15-1.2) 04/25/25 01:18 AST 8 U/L (0-32) 04/25/25 01:18 ALT < 5 U/L (0-33) 04/25/25 01:18 Alkaline Phosphatase 104 U/L (35-105) 04/25/25 01:18 Total Protein 7.8 g/dL (6.6-8.7) 04/25/25 01:18 Albumin 3.5 g/dL (3.5-5.2) 04/25/25 01:18 Globulin 4.3 g/dL (1.3-4.6) 04/25/25 01:18 Urine Color Yellow (Yellow) 04/25/25 04:12 Urine Appearance Clear (CLEAR) 04/25/25 04:12 Urine pH 6.0 (5-7) 04/25/25 04:12 Ur Specific [place] 1.007 (1.005-1.030) 04/25/25 04:12 Urine Protein Negative (Negative) 04/25/25 04:12 Urine Glucose (UA) Negative (Normal) 04/25/25 04:12 Urine Ketones Negative (Negative) 04/25/25 04:12 Urine Blood Non-haemolysed trace (Negative) 04/25/25 04:12 Urine Nitrate Negative (Negative) 04/25/25 04:12 Urine Bilirubin Negative (Negative) 04/25/25 04:12 Urine Urobilinogen 1.0 mg/dL (Negative) 04/25/25 04:12 Ur Leukocyte Esterase Negative (Negative) 04/25/25 04:12 Urine RBC 0-2 /hpf (0-2) 04/25/25 04:12 Urine WBC 0-5 /hpf (0-5) 04/25/25 04:12 Ur Squamous Epith Cells 0-5 /hpf (0-5) 04/25/25 04:12 Amorphous Sediment Not Reportable 04/25/25 04:12 Urine Bacteria None seen /hpf (NONE) 04/25/25 04:12 Hyaline Casts 0-4 /lpf H 04/25/25 04:12 All radiology interpretation(s) finalized by discharge Discharge Plan Discharge Patient Disposition: Admitted As Inpatient Clinical Impression: Diverticulitis, Colon cancer Condition: Stable Sign Out Sign Out Data: Patient Sign Out occurred on 04/25/25 at 06:36. Patient's care was discussed, and care was transferred from David Booker MD to Luis M Park DO. Coding Level of Care Code ED Coin Teller for Chg Fwd Documented by User: Luis M Park DO 04/25/25 07:39 HPI - Abdominal Pain General: Chief Complaint: Abdominal Pain Stated Complaint: ABD Pain Time Seen by Provider: 04/25/25 01:41 Related Data Home Medications ?Medication ?Instructions ?Recorded ?Confirmed celecoxib 100 mg capsule 100 mg PO BID 04/13/25 04/13/25 cholestyramine (with sugar) 4 gram 1 ea PO DAILY 04/13/25 04/13/25 powder for susp in a packet clonazepam 1 mg tablet 1 mg PO DAILY PRN Anxiety 04/13/25 04/13/25 diphenoxylate-atropine 2.5 1 tab PO QID PRN Diarrhea 04/13/25 04/13/25 mg-0.025 mg tablet famotidine 20 mg tablet 20 mg PO BID 04/13/25 04/13/25 fluoxetine 40 mg capsule 40 mg PO DAILY 04/13/25 04/13/25 fluticasone propionate 50 2 spray intranasal DAILY PRN 04/13/25 04/13/25 mcg/actuation nasal allergies spray,suspension gabapentin 300 mg capsule 300 mg PO TID 04/13/25 04/13/25 methadone 10 mg tablet 10 mg PO .1 TO 3 TIMES DAILY 04/13/25 04/13/25 ondansetron HCl 4 mg tablet 4 mg PO .Q6-8H PRN Nausea 04/13/25 04/13/25 oxycodone 5 mg tablet 5 mg PO .Q4-6H PRN Pain 04/13/25 04/13/25 pantoprazole 40 mg tablet,delayed 40 mg PO DAILY 04/13/25 04/13/25 release zolpidem 10 mg tablet 10 mg PO BEDTIME 04/13/25 04/13/25 Previous Rx's ?Medication ?Instructions ?Recorded ciprofloxacin HCl 500 mg tablet 500 mg PO BID #14 tabs 04/13/25 (Cipro) hydrocodone 5 mg-acetaminophen 325 1 tab PO Q6H PRN pain #14 tabs 04/13/25 mg tablet ondansetron 4 mg disintegrating 4 mg PO Q6H PRN nausea and 04/13/25 tablet vomiting #14 tabs Allergies Allergy/AdvReac Type Severity Reaction Status Date / Time azithromycin Allergy ALGY-Rash Verified 11/13/24 18:12 Course Vital Signs: Vital signs: Vital Signs Temperature 98.1 F 04/24/25 22:25 Pulse Rate 89 04/25/25 07:10 Respiratory Rate 17 04/25/25 07:10 Blood Pressure 111/17 04/25/25 07:10 Pulse Oximetry 98 04/25/25 07:10 Oxygen Delivery Me thod Room Air 04/25/25 07:10 MDM - Abdominal Pain Medical Decision Making Patient with known diverticulitis based on CT scan a week ago. Today CT scan is essentially the same. So continue diverticulitis. Arrives with tachycardia borderline blood pressure with mild tachypnea. Tender abdomen with guarding and rebound. Patient has been started on IV antibiotics. Given Dilaudid for pain medication is her home pain medication of fentanyl patch and breakthrough [place] is not working. UTI that is previously present a week ago is no longer present on lab work. But does have a white count today of 23,000 on the blood work Have paged the hospitalist for admission, but due to shift change will sign the patient out to Dr. Park. Care assumed at change of shift. Reviewed the case with overnight ER physician. Previous CT showed's signs of diverticulitis. Current CT is read as Similar on interval comparison . Previous CT reviewed along with today's. White count now up to 23,000 with left shift. Patient has known history of colon cancer has previously been cared for at [facility]. As per Dr. Booker's note she was seen a week ago and discharged home with oral antibiotics Dr. Rushing had seen her at that time and recommended admission patient opted for outpatient therapy at this point and think she has failed outpatient therapy. Will admit with IV antibiotics initial dose was given by Dr. Booker. Discussed with hospitalist and orders written for admission. You have also have staff working on getting records from [facility]. Lab Data 04/25/25 01:18 04/25/25 01:18 Labs/Radiology: Radiology Impressions Abdomen/Pelvis CT 04/25/25 02:03 IMPRESSION: 1. There is circumferential thickening of the wall of the distal sigmoid which may be pathologic. Similar on interval comparison. Endoscopic evaluation may be considered. 2. Pulmonary metastases are noted. Chest X-Ray 04/25/25 03:09 IMPRESSION: 1. 2.6 cm mass in the left lung base. 2. Left Port-A-Cath in the SVC. Laboratory Results WBC 22.82 10^3/uL (3.29-11.43) H 04/25/25 01:18 RBC 3.98 10^6/uL (3.85-5.65) 04/25/25 01:18 Hgb 9.70 g/dL (11.27-16.99) L 04/25/25 01:18 Hct 31.0 % (36-47) L 04/25/25 01:18 MCV 77.9 fl (85-98) L 04/25/25 01:18 MCH 24.4 pg (27-33) L 04/25/25 01:18 MCHC 31.3 g/dL (30-55) 04/25/25 01:18 RDW 21.3 % (12.1-15.1) H 04/25/25 01:18 Plt Count 681 10^3/cmm (157-399) H 04/25/25 01:18 MPV 9.2 fL (7.4-10.4) 04/25/25 01:18 Neut % (Auto) 83.7 % 04/25/25 01:18 Lymph % (Auto) 9.7 % 04/25/25 01:18 Warren % (Auto) 5.0 % 04/25/25 01:18 Eos % (Auto) 0.4 % 04/25/25 01:18 Baso % (Auto) 0.3 % 04/25/25 01:18 Neut # (Auto) 19.12 10^3/uL (1.8-7.7) H 04/25/25 01:18 Lymph # (Auto) 2.2 10^3/uL (0.8-4.8) 04/25/25 01:18 Warren # (Auto) 1.1 10^3/uL (0.2-0.9) H 04/25/25 01:18 Eos # (Auto) 0.1 10^3/uL (0.0-0.8) 04/25/25 01:18 Baso # (Auto) 0.1 10^3/uL (0.0-0.1) 04/25/25 01:18 Nucleated RBC % (auto) 0 % 04/25/25 01:18 Nucleated RBCs # 0.0 /100WBC 04/25/25 01:18 Sodium 137 mmol/L (136-145) 04/25/25 01:18 Potassium 4.2 mmol/L (3.5-5.1) 04/25/25 01:18 Chloride 102 mmol/L (98-107) 04/25/25 01:18 Carbon Dioxide 21 mmol/L (22-29) L 04/25/25 01:18 Anion Gap 18.2 (5-19) 04/25/25 01:18 BUN 10 mg/dL (6-20) 04/25/25 01:18 Creatinine 0.8 mg/dL (0.5-0.9) 04/25/25 01:18 GFR Calculation 78.3 mL/min (90-130) L 04/25/25 01:18 Glucose 128 mg/dL (65-115) H 04/25/25 01:18 Calculated Osmolality 285 mOsm/kg (285-295) 04/25/25 01:18 Lactic Acid 1.3 mmol/L (0.5-2.2) 04/25/25 01:19 Calcium 8.6 mg/dL (8.5-10.5) 04/25/25 01:18 Total Bilirubin 0.3 mg/dL (0.15-1.2) 04/25/25 01:18 AST 8 U/L (0-32) 04/25/25 01:18 ALT < 5 U/L (0-33) 04/25/25 01:18 Alkaline Phosphatase 104 U/L (35-105) 04/25/25 01:18 Total Protein 7.8 g/dL (6.6-8.7) 04/25/25 01:18 Albumin 3.5 g/dL (3.5-5.2) 04/25/25 01:18 Globulin 4.3 g/dL (1.3-4.6) 04/25/25 01:18 Urine Color Yellow (Yellow) 04/25/25 04:12 Urine Appearance Clear (CLEAR) 04/25/25 04:12 Urine pH 6.0 (5-7) 04/25/25 04:12 Ur Specific [place] 1.007 (1.005-1.030) 04/25/25 04:12 Urine Protein Negative (Negative) 04/25/25 04:12 Urine Glucose (UA) Negative (Normal) 04/25/25 04:12 Urine Ketones Negative (Negative) 04/25/25 04:12 Urine Blood Non-haemolysed trace (Negative) 04/25/25 04:12 Urine Nitrate Negative (Negative) 04/25/25 04:12 Urine Bilirubin Negative (Negative) 04/25/25 04:12 Urine Urobilinogen 1.0 mg/dL (Negative) 04/25/25 04:12 Ur Leukocyte Esterase Negative (Negative) 04/25/25 04:12 Urine RBC 0-2 /hpf (0-2) 04/25/25 04:12 Urine WBC 0-5 /hpf (0-5) 04/25/25 04:12 Ur Squamous Epith Cells 0-5 /hpf (0-5) 04/25/25 04:12 Amorphous Sediment Not Reportable 04/25/25 04:12 Urine Bacteria None seen /hpf (NONE) 04/25/25 04:12 Hyaline Casts 0-4 /lpf H 04/25/25 04:12 Discharge Plan Discharge Patient Disposition: Admitted As Inpatient Clinical Impression: Diverticulitis, Colon cancer Condition: Stable Sign Out Sign Out Data: Patient Sign Out occurred on 04/25/25 at 06:36. Patient's care was discussed, and care was transferred from David Booker MD to Luis M Park DO. Coding Level of Care Code ED Coin Teller for Jazmine Parra
--- NOTE | 2025-04-25 09:47 | PM.HP ---
Providers/Chief Complaint Admitting Physician: Art Mckeon MD Primary Care Provider: JOSE A DAVIS MD Chief Complaint: ABD Pain History of Present Illness Luli Beal is a 44 year old woman with stage 4 colon cancer on chemotherapy who presents with worsening abdominal pain. Pain has been present for about one month and escalated to 9?10/10, prompting an emergency department (ED) visit. She reports episodic blood in the stool that began roughly one month ago after a course of pelvic radiation; bleeding has since tapered to occasional pink blood. Stool is now mushy, and she wears a pull-up daily. Appetite and oral intake are poor because of pain. No documented fever, cough, or shortness of breath. Denies urinary symptoms or rashes. A prior ED visit on 04/[address] scan interpreted as diverticulitis; admission was recommended but she declined and was discharged with oral antibiotics. She returned today for worsening pain. ED data: initial heart rate 106 bpm (sinus rhythm); current heart rate 89 bpm; blood pressure 111/77 mmHg; respiratory rate 17; temperature 98.1 ?F; oxygen saturation 98 % on room air. Laboratory studies show leukocytosis 22.8 K/?L and anemia 9.7 g/dL; platelets 681 K/?L. Chemistry and urinalysis unremarkable. Chest X-ray notes a 2.6 cm [id number] mass consistent with pulmonary metastasis. CT abdomen/pelvis shows circumferential thickening of the distal sigmoid colon similar to prior imaging. In the ED she received intravenous ciprofloxacin, metronidazole, one-liter fluid bolus, hydromorphone, and ondansetron. Socially, she lives with her boyfriend and his sons, has been trying to quit smoking/vaping, and denies recent alcohol or illicit drug use. Current medications include an unspecified antidepressant. Allergic to azithromycin. Names sister as surrogate decision maker if needed. Review of Systems Const: Reports: change in appetite; Denies: fever(s), chills, body aches or malaise ENMT: Denies: throat pain Card: Denies: chest pain, edema, pre-syncope or dyspnea on exertion Resp: Denies: dyspnea, productive cough, change in phlegm color or hemoptysis GI: Reports: abdominal pain, nausea and hematochezia; Denies: vomiting, diarrhea, constipation or melena : Denies: flank pain, urinary frequency or hematuria Musc: Denies: back pain, joint swelling or joint redness Skin/Breast: Denies: rash or new lesions Neuro: Denies: headache(s) or confusion Medications/Allergies Home Medications ?Medication ?Instructions ?Recorded ?Confirmed ?Last Taken ?Type cholestyramine (with sugar) 4 gram 1 ea PO DAILY 04/13/25 04/25/25 04/24/25 History powder for susp in a packet clonazepam 1 mg tablet 1 mg PO DAILY PRN Anxiety 04/13/25 04/25/25 Unknown History diphenoxylate-atropine 2.5 1 tab PO QID PRN Diarrhea 04/13/25 04/25/25 Unknown History mg-0.025 mg tablet famotidine 20 mg tablet 20 mg PO BID 04/13/25 04/25/25 04/12/25 History fluoxetine 40 mg capsule 40 mg PO DAILY 04/13/25 04/25/25 04/12/25 History gabapentin 300 mg capsule 300 mg PO TID 04/13/25 04/25/25 04/23/25 History hydrocodone 5 mg-acetaminophen 325 1 tab PO Q6H PRN pain #14 tabs 04/13/25 04/25/25 Unknown Rx mg tablet methadone 10 mg tablet 10 mg PO .1 TO 3 TIMES DAILY 04/13/25 04/25/25 04/12/25 History ondansetron 4 mg disintegrating 4 mg PO Q6H PRN nausea and 04/13/25 04/25/25 Unknown Rx tablet vomiting #14 tabs oxycodone 5 mg tablet 5 mg PO .Q4-6H PRN Pain 04/13/25 04/25/25 04/24/25 History pantoprazole 40 mg tablet,delayed 40 mg PO DAILY 04/13/25 04/25/25 04/24/25 History release zolpidem 10 mg tablet 10 mg PO BEDTIME 04/13/25 04/25/25 04/12/25 History calcium carbonate (Tums) 600 mg PO BID 04/25/25 04/25/25 04/24/25 History cholecalciferol (vitamin D3) 50 50 mcg PO DAILY 04/25/25 04/25/25 04/24/25 History mcg (2,000 unit) capsule (Vitamin D3) psyllium husk 3.4 gram/5.4 gram 1 tbsp PO DAILY 04/25/25 04/25/25 04/24/25 History oral powder (Metamucil) Allergies Allergy/AdvReac Type Severity Reaction Status Date / Time azithromycin Allergy ALGY-Rash Verified 11/13/24 18:12 PFSH Acute PFSH: Medical History (Updated 04/25/25 @ 10:00 by Carlos Dubon MD) Depression Colon cancer Surgical History (Updated 04/25/25 @ 10:00 by Carlos Dubon MD) History of cholecystectomy History of H/O hernia repair H/O: hysterectomy Social History (Updated 04/25/25 @ 10:01 by Carlos Dubon MD) Alcohol intake: never Substance/Drug Use: never Additional social history: Vaping Lives independently: Yes Household members: significant other Vitals/I&O/Wt Last Vital Signs Temp 98.1 F 04/24/25 22:25 Pulse 80 04/25/25 08:40 Resp 17 04/25/25 07:10 BP 95/61 04/25/25 08:40 Pulse Ox 93 04/25/25 08:40 O2 Del Method Room Air 04/25/25 07:10 04/24/25 04/25/25 04/25/25 22:59 06:59 14:59 Intake Total 1000 / 1000 300 / 300 Balance 1000 / 1000 300 / 300 Weight last 48 hrs Weight 94.801 kg Physical Exam Const: COMMON NORMALS: patient oriented x3 and alert GENERAL APPEARANCE: cooperative ORIENTATION/CONSCIOUSNESS: Yes awake HENMT: COMMON NORMALS: oropharynx normal Neck/C-Spine: COMMON NORMALS: no JVD Resp: COMMON NORMALS: normal respiratory effort and clear to auscultation bilaterally AUSCULTATION: clear to auscultation bilaterally Cardio: COMMON NORMALS: no JVD, regular rhythm, S1 normal heart sound present, S2 normal heart sound present and No murmurs present (Cardio) RHYTHM: regular rhythm HEART SOUNDS: S1 normal heart sound present and S2 normal heart sound present GI: COMMON NORMALS: Normal to inspection, nondistended, normoactive bowel sounds present, Soft to palpation and non-tender PALPATION: Yes Soft to palpation OTHER: Abdominal tenderness left lower quadrant with. Abdomen soft. No guarding. Grimaces. Extremity: COMMON NORMALS: no joint enlargement and no pedal edema Neuro: COMMON NORMALS: patient oriented x3 and moves all extremities SENSORIUM/ORIENTATION: Yes alert Skin: COMMON NORMALS: no rashes or lesions noted GENERAL SKIN EXAM: no rashes or lesions noted Data 04/25/25 01:18 04/25/25 01:18 A&P Assessment and plan 1. Colitis: Sigmoid circumferential colitis unresponsive to outpatient treatment. With worsening in the last several days. Significantly symptomatic with pain nausea decreased oral intake. Circumferential thickening of the wall of the distal sigmoid with colitis, known history of stage IV colon cancer with metastatic disease noted in the lungs. She reports abdominal pain left lower quadrant tenderness which has been worsening particularly last several days nausea very poor appetite no hematochezia on presentation with leukocytosis and tachycardia. Discussed with her colitis, possible infectious colitis at the site of the malignancy but also possible radiation-induced colitis. She has been off of her chemotherapy for a month on a chemo break. Attempted to reach her oncologist office Dr. Malvin Pascual but could not get a hold of anyone after being on hold for at least 20 minutes. Reviewed vitals CBC CMP lactic acid UA CT abdomen pelvis chest x-ray, ED provider note, discussed with ED provider. Will continue treatment with IV antibiotics with ciprofloxacin and Flagyl, monitor for risk of C. difficile. Hold off on corticosteroid for now with suspicion of infection. Will check for C. difficile. Gentle IV hydration, monitor for risk of fluid overload. Plan: Leukocytosis : WBC 22.8 K/?L likely reactive to colonic inflammation/infection. Anemia : Hemoglobin 9.7 g/dL, similar to previous values; chronic in context of malignancy and possible marrow suppression. Depression : History of depression managed with an unspecified antidepressant. No acute psychiatric concerns raised. - Continue current depression medication once the specific agent is confirmed PDMP PDMP Reviewed: Not Reviewed Attestations Medical Necessity Statement*: Admission over 2 midnights anticipated for assessment management of colitis with underlying malignancy, possible radiation colitis with high leukocytosis, unresponsive to outpatient therapy. and High MDM includes amount and/or complexity of data reviewed/ordered [ previous or external records, resulted lab(s)/test(s), ordered lab(s)/test(s) and other healthcare professional discussion] and described risk of complication, morbidity or mortality of management as documented Diagnoses Colitis K52.9
[2025-04-25] MEDS: oxyCODONE 5 mg IR Tab/Cap PO (16:05)
[2025-04-25] MEDS: ondansetron 2 mg/ML SDV 2 mL 4 MG IVP (17:31)
[2025-04-26] VITALS (8 sets, daily range): BP systolic 97–120; BP diastolic 63–88; PULSE 88–95; RESP 16–18; TEMP 36.9–37.6; O2SAT 92–96
[2025-04-26] MEDS: ondansetron 2 mg/ML SDV 2 mL 4 MG IVP ×3 (02:44→21:41)
[2025-04-26] MEDS: HYDROmorphone 0.5 MG/0.5 ML INJ 1 MG IVP ×6 (02:44→21:25)
[2025-04-26 04:59] LABS: Hematocrit 27.2 % (36-47); Hemoglobin 8.00 g/dL (11.27-16.99); Mean Corpuscular HGB Conc 29.4 g/dL (30-55); Mean Corpuscular Hemoglobin 24.5 pg (27-33); Mean Corpuscular Volume 83.2 fl (85-98); Nucleated Red Blood Cells % 0 %; Platelet Count 490 10^3/cmm (157-399); Red Blood Count 3.27 10^6/uL (3.85-5.65); White Blood Count 17.19 10^3/uL (3.29-11.43)
[2025-04-26 05:21] LABS: Alanine Aminotransferase < 5 U/L (0-33); Albumin Level 2.9 g/dL (3.5-5.2); Alkaline Phosphatase 82 U/L (35-105); Anion Gap 15.5 (5-19); Aspartate Amino Transferase 7 U/L (0-32); Blood Urea Nitrogen 4 mg/dL (6-20); Calcium 7.3 mg/dL (8.5-10.5); Carbon Dioxide 20 mmol/L (22-29); Chloride 107 mmol/L (98-107); Creatinine Clr Calc Pharmacy 124.2175; Globulin 2.9 g/dL (1.3-4.6); Glucose 103 mg/dL (65-115); Osmolality Calculated 283 mOsm/kg (285-295); Potassium 4.5 mmol/L (3.5-5.1); Sodium 138 mmol/L (136-145); Total Protein 5.8 g/dL (6.6-8.7)
[2025-04-26] MEDS: metroNIDAZOLE IV 500 MG/100 ML PREMIX 100 MG IV ×3 (05:44→22:51)
[2025-04-26] MEDS: cholestyramine powder 4 gm Pkt PO (08:14)
[2025-04-26] MEDS: psyllium powder Pkt 1 PACKET PO (08:14)
[2025-04-26] MEDS: oxyCODONE 5 mg IR Tab/Cap PO ×3 (08:14→20:29)
[2025-04-26 12:09] LABS: Lactate (Lactic Acid level) 1.0 mmol/L (0.5-2.2)
[2025-04-26] MEDS: alum-mag-hydroxide-sime 30 mL UDC PO ×2 (14:39→17:25)
--- NOTE | 2025-04-26 16:16 | P.PN_ITS ---
Subjective 2 Subjective: The patient was seen in the morning. Was having abdominal pain due to gaseous distention however able to pass flatus. Currently feeling better relative to yesterday. Vitals/I&O/Wt Last Vital Signs Temp 98.9 F 04/26/25 15:45 Pulse 95 04/26/25 15:45 Resp 16 04/26/25 15:45 BP 108/63 04/26/25 15:45 Pulse Ox 96 04/26/25 15:45 O2 Del Method Room Air 04/26/25 15:45 04/26/25 04/26/25 04/26/25 06:59 14:59 22:59 Intake Total 400 / 2000 1000 / 1000 Balance 400 / 2000 1000 / 1000 Weight last 48 hrs Weight 100.879 kg Weight 95.254 kg Weight 94.801 kg Physical Exam 2 Narrative: General: Alert oriented x3, patient seen lying on the bed without any respiratory distress or discomfort HEENT: Normocephalic, atraumatic, EOMI, breathing normally at room air Cardio: Regular rate rhythm, normal S1-S2, no murmurs rubs gallops, JVD JVD normal Respiratory: Good bilateral air entry, no wheezes no rhonchi appreciated GI: Abdomen soft, nontender, mildly distended and tympanic normoactive bowel sounds present all 4 quadrants, Neuro: Cranial nerves II to XII intact, strength 5/5, sensation 5/5, no gross neurological deficit Behavior: Appropriate and cooperative Extremities: Pulses 2+, no edema, no cyanosis Skin: Visible skin intact, no rashes Data 04/26/25 04:47 04/26/25 04:47 A&P Assessment and plan 1. Colitis: Sigmoid circumferential colitis unresponsive to outpatient treatment. With worsening in the last several days. Significantly symptomatic with pain nausea decreased oral intake. Circumferential thickening of the wall of the distal sigmoid with colitis, known history of stage IV colon cancer with metastatic disease noted in the lungs. She reports abdominal pain left lower quadrant tenderness which has been worsening particularly last several days nausea very poor appetite no hematochezia on presentation with leukocytosis and tachycardia. Discussed with her colitis, possible infectious colitis at the site of the malignancy but also possible radiation-induced colitis. She has been off of her chemotherapy for a month on a chemo break. Attempted to reach her oncologist office Dr. Malvin Pascual but could not get a hold of anyone after being on hold for at least 20 minutes. Reviewed vitals CBC CMP lactic acid UA CT abdomen pelvis chest x-ray, ED provider note, discussed with ED provider. Will continue treatment with IV antibiotics with ciprofloxacin and Flagyl, monitor for risk of C. difficile. Hold off on corticosteroid for now with suspicion of infection. Will check C. difficile Gentle IV hydration, monitor for risk of fluid overload. Plan: Leukocytosis : WBC 22.8 K/?L likely reactive to colonic inflammation/infection. Currently improving and monitor for any fever episodes or rising WBCs. Less likely to be of sepsis however consider sepsis workup in case of worsening of signs and symptoms accordingly Adequate analgesia as stool softeners Patient preferred to be followed here in [facility] with oncologist, to discharge at the time with oncology follow-up in [facility] Anemia : Hemoglobin 9.7 g/dL, similar to previous values; chronic in context of malignancy and possible marrow suppression. Depression : History of depression managed with an unspecified antidepressant. No acute psychiatric concerns raised. - Continue current depression medication once the specific agent is confirmed PDMP PDMP Reviewed: Not Reviewed Attestations 2 Medical Necessity Statement*: Patient will stay more than 2 midnights for her management of colitis Time Spent in Patient Care: 16 - 35 minutes (>than 50% of time sp ent in counselling and/or direct pt care on unit) . 30 minutes Other Attestations: Patient condition has been discussed at length with the patient/family, I have independently reviewed the chart labs imaging and diagnostics and EKG. The patient/family has been informed about the current condition and further plan of care. Agreed with the plan of care and understood without any language barrier. This documentation was created by [employer] postdoctoral fellow software. Every effort was made to ensure accuracy of postdoctoral fellow. Any obvious errors or omissions should be clarified with the author of the document. Coding Level of Care Code 13418 Diagnoses Colitis K52.9
[2025-04-27] VITALS (9 sets, daily range): BP systolic 88–118; BP diastolic 58–72; PULSE 84–100; RESP 16–20; TEMP 36.8–37.2; O2SAT 93–96
[2025-04-27] MEDS: HYDROmorphone 0.5 MG/0.5 ML INJ 1 MG IVP ×5 (03:59→21:06)
[2025-04-27 04:52] LABS: Hematocrit 25.9 % (36-47); Hemoglobin 7.70 g/dL (11.27-16.99); Mean Corpuscular HGB Conc 29.7 g/dL (30-55); Mean Corpuscular Hemoglobin 24.4 pg (27-33); Mean Corpuscular Volume 82.0 fl (85-98); Nucleated Red Blood Cells % 0 %; Platelet Count 462 10^3/cmm (157-399); Red Blood Count 3.16 10^6/uL (3.85-5.65); White Blood Count 13.97 10^3/uL (3.29-11.43)
[2025-04-27 05:07] LABS: Alanine Aminotransferase < 5 U/L (0-33); Albumin Level 2.5 g/dL (3.5-5.2); Alkaline Phosphatase 66 U/L (35-105); Anion Gap 14.6 (5-19); Aspartate Amino Transferase 6 U/L (0-32); Blood Urea Nitrogen 2 mg/dL (6-20); Calcium 7.1 mg/dL (8.5-10.5); Carbon Dioxide 20 mmol/L (22-29); Chloride 107 mmol/L (98-107); Creatinine Clr Calc Pharmacy 123.0305; Globulin 3.3 g/dL (1.3-4.6); Glucose 102 mg/dL (65-115); Osmolality Calculated 282 mOsm/kg (285-295); Potassium 3.6 mmol/L (3.5-5.1); Sodium 138 mmol/L (136-145); Total Protein 5.8 g/dL (6.6-8.7)
[2025-04-27] MEDS: metroNIDAZOLE IV 500 MG/100 ML PREMIX 100 MG IV ×3 (06:17→21:05)
[2025-04-27] MEDS: alum-mag-hydroxide-sime 30 mL UDC PO ×4 (06:18→21:05)
--- NOTE | 2025-04-27 08:55 | CTR_ITS ---
PROCEDURE INFORMATION: Exam: CT Abdomen And Pelvis With Contrast Exam date and time: 04/27/2025 11:03 AM Age: 44 years old Clinical indication: Bloating and other: Drop in hemoglobin, low BP; Prior surgery; Surgery date: 6+ months; Surgery type: Umbilical hernia, x 3; Additional info: Drop in hb and low BP. colon cancer stage IV. TECHNIQUE: Imaging protocol: Computed tomography of the abdomen and pelvis with contrast. Radiation optimization: All CT scans at this facility use at least one of these dose optimization techniques: automated exposure control; mA and/or kV adjustment per patient size (includes targeted exams where dose is matched to clinical indication); or iterative reconstruction. Contrast material: OMNI 350; Contrast volume: 100 ml; Contrast route: INTRAVENOUS (IV); Other contrast: Oral, OMNI 300, 25; COMPARISON: CT abdomen pelvis w con* [id number] 04/25/2025 4:29 AM RADIATION DOSE METRICS: Total DLP (mGy-cm): 1080.13 FINDINGS: Lungs: Three right lower lobe pulmonary nodules and a 2.6 cm left lower lobe nodule are again seen consistent with metastatic disease. Liver: Normal. No mass. Gallbladder and biliary ducts: Status post cholecystectomy. Pancreas: Normal. No ductal dilation. Spleen: Normal. No splenomegaly. Adrenal glands: Normal. No mass. Kidneys and ureters: Normal. No hydronephrosis. Stomach and bowel: There is slightly increased moderate to severe wall thickening of the sigmoid colon and rectum with pericolonic fat stranding or inflammation. Trace fluid in the sigmoid mesocolon. There is mild dilatation of the colon proximal to this with fecal material. Small bowel is unremarkable. Appendix: No evidence of appendicitis. Intraperitoneal space: Trace free fluid is seen in the pelvis. Vasculature: Unremarkable. No abdominal aortic aneurysm. Lymph nodes: Unremarkable. No enlarged lymph nodes. Urinary bladder: Unremarkable as visualized. Reproductive: Status post hysterectomy. Bones/joints: There is subtle sclerosis in the S1 body again noted which may represent osseous metastatic disease. Soft tissues: Unremarkable. CT/CT abdomen pelvis w con* [id number] IMPRESSION: 1. Wall thickening of the sigmoid colon and rectum consistent with colitis. This may be causing a mild colonic obstruction. Underlying mucosal lesion or colon cancer clearly can not be excluded. 2. Pulmonary nodules at the lung bases consistent with metastatic disease. 3. Sclerosis of the S1 body which may represent osseous metastatic disease. Whole-body bone scintigraphy may be of value.
--- NOTE | 2025-04-27 09:14 | PM.PN ---
Subjective Subjective: The patient was seen in the morning. abdominal is still there however mild in nature and better than yesterday. passing flatus. some blood per stool post radiation, however is getting less everyday. no dizziness or any diarrhea. Currently feeling better relative to yesterday. Vitals/I&O/Wt Last Vital Signs Temp 98.6 F 04/27/25 08:00 Pulse 91 04/27/25 08:00 Resp 18 04/27/25 08:00 BP 88/58 04/27/25 08:00 Pulse Ox 94 04/27/25 08:00 O2 Del Method Room Air 04/27/25 08:00 04/26/25 04/27/25 04/27/25 22:59 06:59 14:59 Intake Total 300 / 1300 1100 / 2400 300 / 300 Balance 300 / 1300 1100 / 2400 300 / 300 Weight last 48 hrs Weight 99.065 kg Weight 100.879 kg Weight 95.254 kg Physical Exam Narrative: General: Alert oriented x3, patient seen lying on the bed without any respiratory distress or discomfort HEENT: Normocephalic, atraumatic, EOMI, breathing normally at room air Cardio: Regular rate rhythm, normal S1-S2, no murmurs rubs gallops, JVD JVD normal Respiratory: Good bilateral air entry, no wheezes no rhonchi appreciated GI: Abdomen soft, nontender, mildly distended and tympanic normoactive bowel sounds present all 4 quadrants, Neuro: Cranial nerves II to XII intact, strength 5/5, sensation 5/5, no gross neurological deficit Behavior: Appropriate and cooperative Extremities: Pulses 2+, no edema, no cyanosis Skin: Visible skin intact, no rashes Data 04/27/25 04:41 04/27/25 04:41 A&P Assessment and plan 1. Colitis: 2. Colon cancer: 3. Anemia in chronic illness: Plan: colitis: - wbcs Currently improving and monitor for any fever episodes or rising WBCs. - continue on cipro and metro - continue hydration and electrolytes monitoring with correction accordingly - Adequate analgesia, gabapentin 300mg tid - stool softeners bid frequency Colon cancer s/p radio and chemo: - Patient preferred to be followed here in [facility] with oncologist, to discharge at the time with oncology follow-up in [facility] Anemia: ACD? - Hemoglobin 9.7 g/dL,and currently trending down without any obvious overt source, having intermittent rectal bleeding since [address]/Abd pelvis with oral and iv contrast did not show any acute intraperitoneal blood loss or any rupture however there was stool burden that was significant and may be the reason of likely abd distress monitor CBC and keep hb >7 - monitor vitals - anemia work up and to follow, iron studies, b12, folate Depression : History of depression managed with an unspecified antidepressant. No acute psychiatric concerns raised. - Continue current depression medication, clonaepam as needed for anxiety - fluoxetine NF from pt supply as she was taking 40mg OD - zolpidem 10mg at night for insomnia ( pt home medications) vte: mechanical proph, considering pt having low hb trend PDMP PDMP Reviewed: Not Reviewed Attestations Medical Necessity Statement*: Luli Beal's hospital stay will require greater than 2 midnights for management of her anemia, colitis. Time Spent in Patient Care: 16 - 35 minutes (>than 50% of time spent in counselling and/or direct pt care on unit). Other Attestations: Patient condition has been discussed at length with the patient and the family, I have independently reviewed the chart labs imaging and diagnostics and EKG.? The patient/family has been informed about the current condition and further plan of care.? Agreed with the plan of care and understood without any language barrier. This documentation was created by [employer] supervisor pipe finishing software. Every effort was made to ensure accuracy of supervisor pipe finishing.? Any obvious errors or omissions should be clarified with the author of the document Coding Level of Care Code 56645 Diagnoses Colitis K52.9 Colon cancer C18.9 Anemia in chronic illness D63.8 Time Spent (min) 30
[2025-04-27] MEDS: ondansetron 2 mg/ML SDV 2 mL 4 MG IVP (09:26)
[2025-04-27] MEDS: iohexol 350 mg/mL 500 mL Btl (per mL) IV (11:07)
[2025-04-27] MEDS: iohexol 300 mg/mL 100 mL Btl IV (11:08)
[2025-04-27] MEDS: sennosides-docusate Tablet 1 TAB PO (14:28)
[2025-04-27] MEDS: psyllium powder Pkt 1 PACKET PO (17:52)
[2025-04-27] MEDS: oxyCODONE 5 mg IR Tab/Cap PO (19:59)
[2025-04-28] VITALS (9 sets, daily range): BP systolic 94–116; BP diastolic 61–77; PULSE 79–93; RESP 15–19; TEMP 36.7–37.8; O2SAT 93–97
[2025-04-28] MEDS: alum-mag-hydroxide-sime 30 mL UDC PO ×6 (01:21→22:59)
[2025-04-28] MEDS: HYDROmorphone 0.5 MG/0.5 ML INJ 1 MG IVP ×5 (03:17→23:00)
[2025-04-28] MEDS: ondansetron 2 mg/ML SDV 2 mL 4 MG IVP ×2 (03:18→23:01)
[2025-04-28 03:31] LABS: Hematocrit 25.9 % (36-47); Hemoglobin 8.00 g/dL (11.27-16.99); Mean Corpuscular HGB Conc 30.9 g/dL (30-55); Mean Corpuscular Hemoglobin 25.0 pg (27-33); Mean Corpuscular Volume 80.9 fl (85-98); Nucleated Red Blood Cells % 0 %; Platelet Count 499 10^3/cmm (157-399); Red Blood Count 3.20 10^6/uL (3.85-5.65); White Blood Count 12.79 10^3/uL (3.29-11.43)
[2025-04-28 03:57] LABS: Alanine Aminotransferase < 5 U/L (0-33); Albumin Level 2.6 g/dL (3.5-5.2); Alkaline Phosphatase 90 U/L (35-105); Anion Gap 14.3 (5-19); Blood Urea Nitrogen 2 mg/dL (6-20); Calcium 7.2 mg/dL (8.5-10.5); Carbon Dioxide 22 mmol/L (22-29); Chloride 111 mmol/L (98-107); Creatinine Clr Calc Pharmacy 143.5355; Globulin 3.4 g/dL (1.3-4.6); Glucose 103 mg/dL (65-115); Osmolality Calculated 292 mOsm/kg (285-295); Potassium 4.3 mmol/L (3.5-5.1); Sodium 143 mmol/L (136-145); Total Protein 6.0 g/dL (6.6-8.7)
[2025-04-28 04:05] LABS: Aspartate Amino Transferase 5 U/L (0-32)
[2025-04-28] MEDS: metroNIDAZOLE IV 500 MG/100 ML PREMIX 100 MG IV ×3 (05:05→22:59)
[2025-04-28] MEDS: oxyCODONE 5 mg IR Tab/Cap PO ×3 (09:08→20:12)
[2025-04-28] MEDS: cholestyramine powder 4 gm Pkt PO (09:09)
[2025-04-28] MEDS: psyllium powder Pkt 1 PACKET PO ×2 (09:09→17:24)
--- NOTE | 2025-04-28 14:23 | PM.PN ---
Subjective Subjective: The patient was seen in the morning. abdominal is still secondary to bloating and some gases however she is able to pass flatus and stools, the pain is mild in nature and better than yesterday. No blood per rectum this morning. No dizziness or any diarrhea. Currently feeling better relative to yesterday. Vitals/I&O/Wt Last Vital Signs Temp 98.4 F 04/28/25 11:24 Pulse 93 04/28/25 11:24 Resp 15 04/28/25 14:00 BP 116/77 04/28/25 11:24 Pulse Ox 95 04/28/25 14:00 O2 Del Method Room Air 04/28/25 11:24 04/27/25 04/28/25 04/28/25 22:59 06:59 14:59 Intake Total 1300 / 1840 340 / 2180 1296.25 / 1296.25 Balance 1300 / 1840 340 / 2180 1296.25 / 1296.25 Weight last 48 hrs Weight 102.149 kg Weight 99.065 kg Physical Exam Narrative: General: Alert oriented x3, patient seen lying on the bed without any respiratory distress or discomfort, having Chemo-Port on her left upper chest with running fluids HEENT: Normocephalic, atraumatic, EOMI, breathing normally at room air Cardio: Regular rate rhythm, normal S1-S2, no murmurs rubs gallops, JVD JVD normal Respiratory: Good bilateral air entry, no wheezes no rhonchi appreciated GI: Abdomen soft, nontender, mildly distended and tympanic normoactive bowel sounds present all 4 quadrants, Neuro: Cranial nerves II to XII intact, strength 5/5, sensation 5/5, no gross neurological deficit Behavior: Appropriate and cooperative Extremities: Pulses 2+, no edema, no cyanosis Skin: Visible skin intact, no rashes Data 04/28/25 03:07 04/28/25 03:07 A&P Assessment and plan 1. Colitis: 2. Colon cancer: 3. Anemia in chronic illness: Plan: colitis: - wbcs Currently improving and monitor for any fever episodes or rising WBCs. - continue on cipro and metro - continue hydration and electrolytes monitoring with correction accordingly - Adequate analgesia, gabapentin 300mg tid Constipation: - stool softeners bid frequency and to add Dulcolax - Hold calcium supplements since it can lead to constipation, patient corrected calcium with respect to albumin is 8.3. -Hold vitamin D supplementation as well to avoid constipation - Monitor for stools every day Colon cancer s/p radio and chemo: - Patient preferred to be followed here in [facility] with oncologist, to discharge at the time with oncology follow-up in [facility] Anemia: ACD? - Hemoglobin 9.7 g/dL,and currently trending down without any obvious overt source, having intermittent rectal bleeding since [address]/Abd pelvis with oral and iv contrast did not show any acute intraperitoneal blood loss or any rupture however there was stool burden that was significant and may be the reason of likely abd distress monitor CBC and keep hb >7 - monitor vitals - anemia work up and to follow, iron studies, b12, folate and to follow-up Depression : History of depression managed with an unspecified antidepressant. No acute psychiatric concerns raised. - Continue current depression medication, clonaepam as needed for anxiety - fluoxetine NF from pt supply as she was taking 40mg OD - zolpidem 10mg at night for insomnia ( pt home medications) The patient has informed that she prefers to follow with the hematology oncology at [facility]. The case management has been informed and will follow with that vte: mechanical proph, considering pt having low hb trend PDMP PDMP Reviewed: Not Reviewed Attestations Medical Necessity Statement*: Luli Beal's hospital stay will be less than 2 midnights for management of colitis Time Spent in Patient Care: 16 - 35 minutes (>than 50% of time spent in counselling and/or direct pt care on unit). 35 minutes Other Attestations: Patient condition has been discussed at length with the patient/family, I have independently reviewed the chart labs imaging and diagnostics and EKG. I have discussed the goals of care and code status with the patient/family/NOK/legal public health representative, and documented accordingly. The patient/family has been informed about the current condition and further plan of care. Agreed with the plan of care and understood without any language barrier. This documentation was created by [employer] cut off saw operator pipe blanks software. Every effort was made to ensure accuracy of cut off saw operator pipe blanks. Any obvious errors or omissions should be clarified with the author of the document. Coding Level of Care Code 35018 Diagnoses Colitis K52.9 Colon cancer C18.7 Colon location: sigmoid Anemia in chronic illness D63.8
[2025-04-28 15:04] LABS: Ferritin 81 ng/mL (15-150); Iron 18 ug/dL (37-145); Total Iron Binding Capacity 145 mcg/dl; Unsaturated Iron Binding 127 ug/dL (112-347)
[2025-04-28 15:19] LABS: Vitamin B12 399 pg/mL (232-1245)
[2025-04-29] VITALS (7 sets, daily range): BP systolic 100–115; BP diastolic 64–76; PULSE 65–85; RESP 16–18; TEMP 36.8–37.1; O2SAT 93–96
[2025-04-29] MEDS: alum-mag-hydroxide-sime 30 mL UDC PO ×6 (01:43→20:23)
[2025-04-29] MEDS: HYDROmorphone 0.5 MG/0.5 ML INJ 1 MG IVP ×5 (03:11→23:23)
[2025-04-29 05:09] LABS: Hematocrit 26.3 % (36-47); Hemoglobin 8.00 g/dL (11.27-16.99); Mean Corpuscular HGB Conc 30.4 g/dL (30-55); Mean Corpuscular Hemoglobin 24.5 pg (27-33); Mean Corpuscular Volume 80.7 fl (85-98); Nucleated Red Blood Cells % 0 %; Platelet Count 501 10^3/cmm (157-399); Red Blood Count 3.26 10^6/uL (3.85-5.65); White Blood Count 11.68 10^3/uL (3.29-11.43)
[2025-04-29 05:20] LABS: Alanine Aminotransferase < 5 U/L (0-33); Albumin Level 2.6 g/dL (3.5-5.2); Alkaline Phosphatase 60 U/L (35-105); Blood Urea Nitrogen 2 mg/dL (6-20); Calcium 7.4 mg/dL (8.5-10.5); Carbon Dioxide 22 mmol/L (22-29); Chloride 108 mmol/L (98-107); Creatinine Clr Calc Pharmacy 144.4356; Globulin 3.3 g/dL (1.3-4.6); Glucose 95 mg/dL (65-115); Osmolality Calculated 282 mOsm/kg (285-295); Sodium 138 mmol/L (136-145); Total Protein 5.9 g/dL (6.6-8.7)
[2025-04-29 05:23] LABS: Anion Gap 11.9 (5-19); Aspartate Amino Transferase 11 U/L (0-32); Potassium 3.9 mmol/L (3.5-5.1)
[2025-04-29] MEDS: metroNIDAZOLE IV 500 MG/100 ML PREMIX 100 MG IV ×3 (06:44→22:02)
[2025-04-29] MEDS: oxyCODONE 5 mg IR Tab/Cap PO (06:44)
[2025-04-29] MEDS: cholestyramine powder 4 gm Pkt PO (09:34)
[2025-04-29] MEDS: psyllium powder Pkt 1 PACKET PO ×2 (09:34→17:21)
[2025-04-29] MEDS: ondansetron 2 mg/ML SDV 2 mL 4 MG IVP ×2 (09:34→19:17)
--- NOTE | 2025-04-29 10:02 | PC.CHAP ---
Pastoral Care Encounter/Spiritual Assessment Type of Contact [] Declined metal machine setter visit [] Patient/Family/Request visit [] Outpatient visit [] Follow-up visit [] Physician referral [] Code/Alert [x] Routine visit [] Staff referral [] Actively dying [] Patient sleeping [] Family support [] [] Out of room [] Palliative care [] [] Receiving care in room [] Pre-surgical visit [] Trauma [] Long length of stay [] ICU visit [] Other: Relational/Emotional Strength [x] Patient feels connected with others/family/visitors/staff [x] Distress [] Loneliness/isolation [] Abandonment Spirituality of Patient [x] Person of Shaila [] Attends Scientologist of their Shaila [x] Believes in Prayer [] Reads Bible or Zoroastrianism materials [] There are Spiritual issues to be addressed Applications Support Lead Interventions [x] Prayer [x] Active listening [x] Non-anxious presence [x] Spiritual/emotional support [] Crisis/trauma care [] Spiritual counseling [] Bereavement support [] Provided bereavement packet [] Provided Bible/devotional materials [] Provided toy/stuffed animal, coloring book to patient or family member [] Provided Communion [] Anointing/[place] [] Salvation [x] Completed spiritual assessment [] Other: Impact on Illness or Injury [] Angry [] Fearful [] Anxious [] Often cries [] Exhaustion [] Unable to work [] Unable to attend baptist [] Unable to walk/stand [] Unable to read [] Unable to drive [] Unable to eat/drink [] Unable to sleep [] Unable to be with family [] Patient intubated [] Other: Summary Time spent with patient 5 min
--- NOTE | 2025-04-29 15:00 | PC.NURSE ---
This patient has been getting 1mg of Dilauded while she has been here. This nurse gave 1 mg of dilaudid just now and failed to scan the second one due to patient in so much pain. Patient can atest this nurse gave two 0.5 vial of dilauded to equal 1 mg.
[2025-04-29] MEDS: oxyCODONE-APAP 5-325 mg Tablet 1 TAB PO (18:50)
--- NOTE | 2025-04-29 20:47 | P.PN_ITS ---
Subjective 2 Subjective: Patient is doing better but still with much abdominal pain and discomfort on pain management. Patient verbalized sensation of not fully evacuating stool. She is going very feels that she needs to ever quit completely. Patient is with colonic mass and its already following up with oncology home she said she will look for a second opinion I advised her to stay with the oncology while looking for his second opinion than staying without. Vitals/I&O/Wt Last Vital Signs Temp 98.4 F 04/29/25 15:23 Pulse 79 04/29/25 15:23 Resp 16 04/29/25 18:50 BP 103/69 04/29/25 15:23 Pulse Ox 96 04/29/25 18:50 O2 Del Method Room Air 04/29/25 15:23 04/29/25 04/29/25 04/29/25 06:59 14:59 22:59 Intake Total 100 / 2696.25 1220 / 1220 300 / 1520 Balance 100 / 2696.25 1220 / 1220 300 / 1520 Weight last 48 hrs Weight 100.244 kg Weight 102.149 kg Physical Exam 2 Narrative: Patient is doing okay but with cancer pain and on Dilaudid and oxy codon for pain management. I have also added lactulose to keep the stool very soft and easy to come through. HEENT normocephalic/atraumatic neck neck is supple cardiovascular heart rate is regular lungs are pretty much clear abdomen soft nontender nondistended unremarkable extremities are intact no edema has good pulses neurology has no focality lab studies lab studies reviewed and noted. Data 04/29/25 04:45 04/29/25 04:45 A&P Assessment and plan 1. Colitis: Continue care 2. Anemia in chronic illness: Patient with anemia of chronic disease in this case canceled. H&H stable 3. Colon cancer: Patient with colonic cancer mets to the lungs and abdominal region - Patient is on chemotherapy that she is not tolerating because of neuropathy and all of the side effects She is on pulse at this time Patient is following up with oncology here. Looking for a second opinion when she leaves the hospital, she said I advised that she continues to be with the current oncology while looking for a second opinion as desired than leaving all care completely. Plan: GI and DVT prophylaxis in place PDMP PDMP Reviewed: Not Reviewed Attestations 2 Medical Necessity Statement*: Patient is with much pain and need to be monitored but need to be optimized prior to discharge and good bowel movement establish with management of bowel prep and patient does need at least 2 days to allow further optimization of care for this young cancer patient for discharge Coding Level of Care Code 04347 Diagnoses Colitis K52.9 Anemia in chronic illness D63.8 Colon cancer C18.9 Time Spent (min) 45
[2025-04-30] VITALS (11 sets, daily range): BP systolic 92–125; BP diastolic 56–87; PULSE 67–101; RESP 14–18; TEMP 36.4–37.2; O2SAT 90–98
[2025-04-30] MEDS: alum-mag-hydroxide-sime 30 mL UDC PO ×3 (02:31→08:52)
[2025-04-30] MEDS: HYDROmorphone 0.5 MG/0.5 ML INJ 1 MG IVP ×3 (02:32→21:17)
[2025-04-30] MEDS: metroNIDAZOLE IV 500 MG/100 ML PREMIX 100 MG IV (06:29)
[2025-04-30] MEDS: psyllium powder Pkt 1 PACKET PO (06:29)
[2025-04-30] MEDS: cholestyramine powder 4 gm Pkt PO (08:48)
[2025-04-30 09:42] LABS: Hematocrit 27.2 % (36-47); Hemoglobin 8.10 g/dL (11.27-16.99); Mean Corpuscular HGB Conc 29.8 g/dL (30-55); Mean Corpuscular Hemoglobin 24.3 pg (27-33); Mean Corpuscular Volume 81.7 fl (85-98); Nucleated Red Blood Cells % 0 %; Platelet Count 478 10^3/cmm (157-399); Red Blood Count 3.33 10^6/uL (3.85-5.65); White Blood Count 12.89 10^3/uL (3.29-11.43)
[2025-04-30] MEDS: oxyCODONE 10 mg ER (12 HR) Tablet PO ×2 (09:46→17:37)
[2025-04-30 10:17] LABS: Procalcitonin 0.07 ng/mL (0-0.5); Thyroid Stimulating Hormone 3.76 uIU/mL (0.27-4.20)
[2025-04-30 10:33] LABS: Alanine Aminotransferase < 5 U/L (0-33); Albumin Level 2.7 g/dL (3.5-5.2); Alkaline Phosphatase 58 U/L (35-105); Anion Gap 14.7 (5-19); Aspartate Amino Transferase 7 U/L (0-32); Blood Urea Nitrogen 3 mg/dL (6-20); Calcium 7.7 mg/dL (8.5-10.5); Carbon Dioxide 19 mmol/L (22-29); Chloride 108 mmol/L (98-107); Creatinine Clr Calc Pharmacy 146.1671; Globulin 3.2 g/dL (1.3-4.6); Glucose 120 mg/dL (65-115); Osmolality Calculated 284 mOsm/kg (285-295); Potassium 3.7 mmol/L (3.5-5.1); Sodium 138 mmol/L (136-145); Total Protein 5.9 g/dL (6.6-8.7)
[2025-04-30] MEDS: magnesium citrate Btl 296 mL PO (10:43)
[2025-04-30 10:45] LABS: Estmated Average Glucose 105; Hemoglobin A1C 5.3 % (4.0-6.0)
[2025-04-30] MEDS: oxyCODONE-APAP 5-325 mg Tablet 1 TAB PO ×2 (11:30→22:11)
[2025-04-30] MEDS: ondansetron 2 mg/ML SDV 2 mL 4 MG IVP ×2 (11:30→19:53)
--- NOTE | 2025-04-30 11:50 | CTR_ITS ---
PROCEDURE INFORMATION: Exam: CT Abdomen And Pelvis With Contrast Exam date and time: 04/30/2025 3:56 PM Age: 44 years old Clinical indication: Constipation; Abdominal pain; Localized; Left; Prior surgery; Surgery date: 6+ months; Surgery type: C-sections, gb, hyst, hernia; Additional info: Colon cancer, constipation, abd pain TECHNIQUE: Imaging protocol: Computed tomography of the abdomen and pelvis with contrast. Radiation optimization: All CT scans at this facility use at least one of these dose optimization techniques: automated exposure control; mA and/or kV adjustment per patient size (includes targeted exams where dose is matched to clinical indication); or iterative reconstruction. Contrast material: OMNI 350; Contrast volume: 100 ml; Contrast route: INTRAVENOUS (IV); COMPARISON: CT abdomen pelvis w con* [id number] 04/27/2025 11:03 AM RADIATION DOSE METRICS: Total DLP (mGy-cm): 1077.53 FINDINGS: Lungs: Slight decrease in size of 2.4 x 2.1 cm left lower lobe pulmonary nodule and stable size of 1.3 cm noncalcified right lower lobe pulmonary nodule. Liver: Diffuse hepatic hypoattenuation. Gallbladder and biliary ducts: Status post cholecystectomy. No evidence of significant biliary obstruction. Pancreas: Normal. No ductal dilation. Spleen: Normal. No splenomegaly. Adrenal glands: Normal. No mass. Kidneys and ureters: New mild right hydronephrosis. Stomach and bowel: Persistent circumferential wall thickening in the sigmoid colon and rectum. Worsened stool and fluid distension of the colon proximal to this suggesting increasing obstruction. Appendix: No evidence of appendicitis. Intraperitoneal space: Unremarkable. No free air. No significant fluid collection. Vasculature: Unremarkable. No abdominal aortic aneurysm. Lymph nodes: Unremarkable. No enlarged lymph nodes. Urinary bladder: Unremarkable as visualized. Reproductive: Uterus is surgically absent. No evidence of adnexal mass. Bones/joints: Stable faint sclerosis of the S1 vertebral body. Soft tissues: Unremarkable. CT/CT abdomen pelvis w con* [id number] IMPRESSION: 1. Persistent circumferential wall thickening in the sigmoid colon and rectum. Worsened stool and fluid distension of the colon proximal to this suggesting increasing obstruction. While this may represent colitis/proctitis, malignancy is not excluded. 2. New mild right hydronephrosis. 3. Stable faint sclerosis of the S1 vertebral body. Metastatic disease not excluded. Consider further evaluation with whole-body bone scan. 4. Slight decrease in size of 2.4 x 2.1 cm left lower lobe pulmonary nodule and stable size of 1.3 cm noncalcified right lower lobe pulmonary nodule. Both presumed to represent metastases. 5. Hepatic steatosis.
--- NOTE | 2025-04-30 11:53 | P.PN_ITS ---
Subjective 2 Subjective: Hospital course, labs appreciated. Patient states she still having abdominal pain. Concern for not having a bowel movement. Concerned that her colonic mass is causing her to have an obstruction. Denies any nausea or vomiting. Able to tolerate diet. Vitals/I&O/Wt Last Vital Signs Temp 98.2 F 04/30/25 11:32 Pulse 82 04/30/25 11:32 Resp 15 04/30/25 11:32 BP 109/76 04/30/25 11:32 Pulse Ox 96 04/30/25 11:32 O2 Del Method Room Air 04/30/25 11:32 04/29/25 04/30/25 04/30/25 22:59 06:59 14:59 Intake Total 1110 / 2330 264.583 / 2594.583 296.667 / 296.667 Balance 1110 / 2330 264.583 / 2594.583 296.667 / 296.667 Weight last 48 hrs Weight 102.512 kg Weight 100.244 kg Physical Exam 2 Const: COMMON NORMALS: patient oriented x3 and alert GENERAL APPEARANCE: c ooperative ORIENTATION/CONSCIOUSNESS: Yes awake HENMT: COMMON NORMALS: oropharynx normal Neck/C-Spine: COMMON NORMALS: no JVD Resp: COMMON NORMALS: normal respiratory effort and clear to auscultation bilaterally AUSCULTATION: clear to auscultation bilaterally Cardio: COMMON NORMALS: no JVD, regular rhythm, S1 normal heart sound present, S2 normal heart sound present and No murmurs present (Cardio) RHYTHM: regular rhythm HEART SOUNDS: S1 normal heart sound present and S2 normal heart sound present GI: COMMON NORMALS: Normal to inspection, nondistended, normoactive bowel sounds present, Soft to palpation and non-tender PALPATION: Yes Soft to palpation OTHER: Abdominal tenderness left lower quadrant with. Abdomen soft. No guarding. Grimaces. Extremity: COMMON NORMALS: no joint enlargement and no pedal edema Neuro: COMMON NORMALS: patient oriented x3 and moves all extremities S ENSORIUM/ORIENTATION: Yes alert Skin: COMMON NORMALS: no rashes or lesions noted GENERAL SKIN EXAM: no rashes or lesions noted Data 04/30/25 09:27 04/30/25 09:27 A&P Assessment and plan 1. Colitis: Continue care 2. Anemia in chronic illness: Patient with anemia of chronic disease in this case canceled. H&H stable 3. Colon cancer: Patient with colonic cancer mets to the lungs and abdominal region - Patient is on chemotherapy that she is not tolerating because of neuropathy and all of the side effects She is on pulse at this time Patient is following up with oncology here. Looking for a second opinion when she leaves the hospital, she said I advised that she continues to be with the current oncology while looking for a second opinion as desired than leaving all care completely. 4. Constipation: Plan: Plan for the day: Patient complaining of constipation. States abdominal pain is still there. We discussed unfortunately given her colon cancer abdominal pain cannot be taken away completely. Unfortunately she will have some pain even with pain medications. Discussed significant side effect of pain medication with constipation. Constipation could be in setting of obstruction due to the mass or colitis vs pain medications. Switch 1 mg IV Dilaudid every 3 hours to 1 mg morphine every 4 hours as needed. Continue with current dose of oxycodone every 4 hours as needed. Add oxycodone IR 10 mg p.o. twice daily. Encourage patient for early ambulation. After CT abdomen pelvis if no concern for obstruction we will start on aggressive bowel regimen with milk of magnesia 30 mL nightly, senna Colace twice daily. 1 dose of mag citrate. CT abdomen pelvis with contrast for further evaluation. If concern for obstruction due to colitis will consult surgeon for further evaluation. Continues to have persistent leukocytosis. Has been on Cipro Flagyl for more than 5 days. Switch to Zosyn for now. Check stool studies when possible. PDMP PDMP Reviewed: Not Reviewed Attestations 2 Medical Necessity Statement*: Requires further hospitalization for management of constipation, abdominal pain in setting of colon cancer, colitis Diagnoses Colitis K52.9 Anemia in chronic illness D63.8 Colon cancer C18.7 Colon location: sigmoid Constipation K59.00
[2025-04-30] MEDS: piperacillin-tazobactam 3.375 GM in sodium chloride 0.9% (plus) 50 ML IV (15:17)
[2025-04-30] MEDS: iohexol 350 mg/mL 500 mL Btl (per mL) IV (16:01)
--- NOTE | 2025-04-30 17:59 | PM.CONSULT ---
Providers/Reason For Consult Consulting Physician/Specialty*: Neil Bolanos DO Reason for Consult*: Large bowel obstruction Attending Physician: Dudley William MD Primary Care Provider: JOSE A DAVIS MD History of Present Illness History of Present Illness Luli Beal is a 44 year old female with a history of known colorectal cancer. She had been treated with chemotherapy by her oncologist as an outpatient but she did not tolerate this well so was paused. She has known about her cancer diagnosis for the past 5 months. She presented to the hospital 4 days ago with worsening abdominal pain and on initial CT scan which showed concern for colitis along with this known sigmoid and rectal mass. The symptoms of bloating and nausea progressed and they did a repeat CT scan today which showed progression of this large bowel obstruction and her symptoms are worsening. She denies any fevers or chills. She has been passing minimal flatus and no bowel movement for the last several days. She denies any weight loss recently or adenopathy. She states that she had some spots on her lungs that they were treating with chemotherapy as an outpatient and her oncologist wanted to continue her chemotherapy when she was able to. She has no other complaints at this time. She denies any blood in her stool and her only complaint is severe abdominal pain that is only alleviated with narcotic pain medicine. Review of Systems Const: Reports: change in appetite; Denies: fever(s), chills, body aches or malaise ENMT: Denies: throat pain Card: Denies: chest pain, edema, pre-syncope or dyspnea on exertion Resp: Denies: dyspnea, productive cough, change in phlegm color or hemoptysis GI: Reports: abdominal pain, nausea and hematochezia; Denies: vomiting, diarrhea, constipation or melena : Denies: flank pain, urinary frequency or hematuria Musc: Denies: back pain, joint swelling or joint redness Skin/Breast: Denies: rash or new lesions Neuro: Denies: headache(s) or confusion Medications/Allergies Home Medications ?Medication ?Instructions ?Recorded ?Confirmed ?Last Taken ?Type cholestyramine (with sugar) 4 gram 1 ea PO DAILY 04/13/25 04/25/25 04/24/25 History powder for susp in a packet clonazepam 1 mg tablet 1 mg PO DAILY PRN Anxiety 04/13/25 04/25/25 Unknown History diphenoxylate-atropine 2.5 1 tab PO QID PRN Diarrhea 04/13/25 04/25/25 Unknown History mg-0.025 mg tablet famotidine 20 mg tablet 20 mg PO BID 04/13/25 04/25/25 04/12/25 History fluoxetine 40 mg capsule 40 mg PO DAILY 04/13/25 04/25/25 04/12/25 History gabapentin 300 mg capsule 300 mg PO TID 04/13/25 04/25/25 04/23/25 History hydrocodone 5 mg-acetaminophen 325 1 tab PO Q6H PRN pain #14 tabs 04/13/25 04/25/25 Unknown Rx mg tablet methadone 10 mg tablet 10 mg PO .1 TO 3 TIMES DAILY 04/13/25 04/25/25 04/12/25 History ondansetron 4 mg disintegrating 4 mg PO Q6H PRN nausea and 04/13/25 04/25/25 Unknown Rx tablet vomiting #14 tabs oxycodone 5 mg tablet 5 mg PO .Q4-6H PRN Pain 04/13/25 04/25/25 04/24/25 History pantoprazole 40 mg tablet,delayed 40 mg PO DAILY 04/13/25 04/25/25 04/24/25 History release zolpidem 10 mg tablet 10 mg PO BEDTIME 04/13/25 04/25/25 04/12/25 History calcium carbonate (Tums) 600 mg PO BID 04/25/25 04/25/25 04/24/25 History cholecalciferol (vitamin D3) 50 50 mcg PO DAILY 04/25/25 04/25/25 04/24/25 History mcg (2,000 unit) capsule (Vitamin D3) psyllium husk 3.4 gram/5.4 gram 1 tbsp PO DAILY 04/25/25 04/25/25 04/24/25 History oral powder (Metamucil) Allergies Allergy/AdvReac Type Severity Reaction Status Date / Time azithromycin Allergy ALGY-Rash Verified 11/13/24 18:12 Current Medications Generic Name Dose Route Start Last Admin Trade Name Freq PRN Reason Stop Dose Admin Al Hydrox/Mg Hydrox/Simethicone 30 ml 04/26/25 14:00 04/30/25 17:39 [id number] 30 Ml Udc PO Not Given Q4H JEFF Cholestyramine Resin 4 gm 04/26/25 09:00 04/30/25 08:48 Cholestyramine Powder 4 Gm Pkt PO 4 gm DAILY JEFF Administration Fluoxetine HCl 40 mg 04/28/25 09:00 04/30/25 08:47 Fluoxetine 20 Mg Capsule PO 40 mg DAILY JEFF Administration Gabapentin 300 mg 04/25/25 15:00 04/30/25 15:19 Gabapentin 300 Mg Capsule PO Not Given TID JEFF Sodium Chloride 1,000 mls @ 75 mls/hr 04/25/25 10:22 04/30/25 15:18 Sodium Chloride 0.9% IV 75 mls/hr .[id number] JEFF Administration Piperacillin Sod/Tazobactam 50 mls @ 12.5 mls/hr 04/30/25 12:15 04/30/25 15:17 Sod 3.375 gm/ Sodium Chloride IV 12.5 mls/hr Q8H JEFF Administration Ondansetron HCl 4 mg 04/25/25 11:46 04/30/25 11:30 Ondansetron 2 Mg/Ml Sdv 2 Ml IVP 4 mg Q8H PRN Administration vomiting, or N/V if npo Oxycodone HCl 10 mg 04/30/25 09:15 04/30/25 17:37 Oxycodone 10 Mg Er (12 Hr) Tablet PO 10 mg BID@0500,1700 [facility] Administration Oxycodone/Acetaminophen 1 tab 04/29/25 17:38 04/30/25 11:30 Oxycodone-Apap 5-325 Mg Tablet PO 1 tab Q4H PRN Administration MODERATE PAIN Pantoprazole Sodium 40 mg 04/25/25 10:22 04/30/25 08:[address] 40 Mg Tablet PO 40 mg DAILY JEFF Administration Psyllium Hydrophilic Mucilloid 1 packet 04/29/25 17:00 04/30/25 17:39 Psyllium Powder Pkt PO Not Given BID@0500,1700 JEFF Senna/Docusate Sodium 1 tab 04/30/25 17:00 04/30/25 17:39 Sennosides-Docusate Tablet PO Not Given BID@0500,1700 JEFF PFSH Acute PFSH: Medical History (Updated 04/30/25 @ 11:58 by Dudley William MD) Depression Colon cancer Surgical History (Updated 04/25/25 @ 10:00 by Carlos Dubon MD) History of cholecystectomy History of H/O hernia repair H/O: hysterectomy Social History (Updated 04/25/25 @ 10:01 by Carlos Dubon MD) Alcohol intake: never Substance/Drug Use: never Additional social history: Vaping Lives independently: Yes Household members: significant other Vitals/I&O/Wt Last Vital Signs Temp 98.4 F 04/30/25 15:08 Pulse 83 04/30/25 15:08 Resp 16 04/30/25 15:08 BP 121/87 04/30/25 15:08 Pulse Ox 96 04/30/25 15:08 O2 Del Method Room Air 04/30/25 15:08 04/30/25 04/30/25 04/30/25 06:59 14:59 22:59 Intake Total 264.583 / 2594.583 1296.667 / 1296.667 Balance 264.583 / 2594.583 1296.667 / 1296.667 Weight last 48 hrs Weight 226 lb Weight 221 lb Physical Exam Const: COMMON NORMALS: patient oriented x3 and alert GENERAL APPEARANCE: cooperative ORIENTATION/CONSCIOUSNESS: Yes awake HENMT: COMMON NORMALS: oropharynx normal Neck/C-Spine: COMMON NORMALS: no JVD Resp: COMMON NORMALS: normal respiratory effort and clear to auscultation bilaterally AUSCULTATION: clear to auscultation bilaterally Cardio: COMMON NORMALS: no JVD, regular rhythm, S1 normal heart sound present, S2 normal heart sound present and No murmurs present (Cardio) RHYTHM: regular rhythm HEART SOUNDS: S1 normal heart sound present and S2 normal heart sound present GI: COMMON NORMALS: Normal to inspection, nondistended, normoactive bowel sounds present, Soft to palpation and non-tender PALPATION: Yes Soft to palpation OTHER: Abdominal tenderness left lower quadrant with. Abdomen soft. No guarding. Grimaces. Rectal exam revealed no obvious mass palpated and no blood or stool on exam. Extremity: COMMON NORMALS: no joint enlargement and no pedal edema Neuro: COMMON NORMALS: patient oriented x3 and moves all extremities SENSORIUM/ORIENTATION: Yes alert Skin: COMMON NORMALS: no rashes or lesions noted GENERAL SKIN EXAM: no rashes or lesions noted Data 04/30/25 09:27 04/30/25 09:27 CT Abd/Pel: My impression: The tumor appeared as concentric thickening from the mid upper rectum up until the distal sigmoid colon which appeared to be the area of narrowing and concern for obstruction with minimal stranding and inflammation surrounding this. She had a large amount of air and stool throughout her colon proximal to this. A&P Assessment and plan 1. Colon cancer: Patient with colonic cancer mets to the lungs and abdominal region - Patient is on chemotherapy that she is not tolerating because of neuropathy and all of the side effects She is on pulse at this time I would recommend transferring to a larger tertiary care center for definitive treatment and potential colonic stent placement to alleviate this large bowel obstruction. I spoke with a colorectal surgeon at [facility] that is willing to take on her care and they have the adjunct of teams necessary to help with her definitive treatment. She is in agreement with this and we will initiate the transfer process and I will discuss this with Dr. Hebert at this time to make sure he is in agreement with this. No definitive surgical care at this time and we will transfer her. Continue IV antibiotics and pain control. I would keep her n.p.o. for now given her large bowel obstruction. Please call or message with any questions or concerns. 2. Colitis: Continue care 3. Anemia in chronic illness: Patient with anemia of chronic disease in this case canceled. H&H stable 4. Constipation: Plan: Plan for the day: Patient complaining of constipation. States abdominal pain is still there. We discussed unfortunately given her colon cancer abdominal pain cannot be taken away completely. Unfortunately she will have some pain even with pain medications. Discussed significant side effect of pain medication with constipation. Constipation could be in setting of obstruction due to the mass or colitis vs pain medications. Switch 1 mg IV Dilaudid every 3 hours to 1 mg morphine every 4 hours as needed. Continue with current dose of oxycodone every 4 hours as needed. Add oxycodone IR 10 mg p.o. twice daily. Encourage patient for early ambulation. After CT abdomen pelvis if no concern for obstruction we will start on aggressive bowel regimen with milk of magnesia 30 mL nightly, senna Colace twice daily. 1 dose of mag citrate. CT abdomen pelvis with contrast for further evaluation. If concern for obstruction due to colitis will consult surgeon for further evaluation. Continues to have persistent leukocytosis. Has been on Cipro Flagyl for more than 5 days. Switch to Zosyn for now. Check stool studies when possible. PDMP PDMP Reviewed: Not Reviewed Coding Level of Care Code 26128 Diagnoses Colon cancer C18.7 Colon location: sigmoid Colitis K52.9 Anemia in chronic illness D63.8 Constipation K59.00
[2025-04-30] MEDS: morphine 4 mg/mL SDV 1 mL 1 MG IVP (19:53)
--- NOTE | 2025-04-30 23:00 | P.TS_ITS ---
Transfer Summary Providers Date of Admission: 04/25/25 09:21 Date of Discharge/Transfer: 04/30/25 Attending Provider at Admission: Art Mckeon MD Attending Provider at Transfer: Dudley William MD Primary Care Provider: JOSE A DAVIS MD Transfer Plans: Anticipated date of transfer: 04/30/25 . Receiving Facility: [facility] . Receiving Provider: Dr. Munguia . Diagnoses at Discharge Discharge Diagnosis 1. Colon cancer: 2. Colitis: 3. Anemia in chronic illness: 4. Constipation: Reason for Visit Reason for Visit ABD Pain Brief History: Per HPI: Luli Beal is a 44 year old woman with stage 4 colon cancer on chemotherapy who presents with worsening abdominal pain. Pain has been present for about one month and escalated to 9?10/10, prompting an emergency department (ED) visit. She reports episodic blood in the stool that began roughly one month ago after a course of pelvic radiation; bleeding has since tapered to occasional pink blood. Stool is now mushy, and she wears a pull-up daily. Appetite and oral intake are poor because of pain. No documented fever, cough, or shortness of breath. Denies urinary symptoms or rashes. A prior ED visit on 04/[address] scan interpreted as diverticulitis; admission was recommended but she declined and was discharged with oral antibiotics. She returned today for worsening pain. ED data: initial heart rate 106 bpm (sinus rhythm); current heart rate 89 bpm; blood pressure 111/77 mmHg; respiratory rate 17; temperature 98.1 ?F; oxygen saturation 98 % on room air. Laboratory studies show leukocytosis 22.8 K/?L and anemia 9.7 g/dL; platelets 681 K/?L. Chemistry and urinalysis unremarkable. Chest X-ray notes a 2.6 cm [id number] mass consistent with pulmonary metastasis. CT abdomen/pelvis shows circumferential thickening of the distal sigmoid colon similar to prior imaging. In the ED she received intravenous ciprofloxacin, metronidazole, one-liter fluid bolus, hydromorphone, and ondansetron. Socially, she lives with her boyfriend and his sons, has been trying to quit smoking/vaping, and denies recent alcohol or illicit drug use. Current medications include an unspecified antidepressant. Allergic to azithromycin. Names sister as surrogate decision maker if needed. Hospital Course Hospital Course Patient was admitted to the hospital further evaluation and management of possible colitis leading to abdominal pain and possibility of mild obstruction due to inflammation from colitis. She was started on broad-spectrum antibiotics, pain control. Her hospitalization was unremarkable but continued to have abdominal pain along with constipation. As patient persistently had leukocytosis without sepsis or fever with continuous constipation and abdominal pain repeat CT on pelvis was done which showed worsening of obstruction with thickening at rectosigmoid colon. Surgery was consulted who requested patient to be transferred to a tertiary center for possible need of colorectal surgery in setting of colon cancer with chemotherapy with possible need of colonic stent versus mass resection with colostomy. Patient was accepted at [facility] and has been transferred in hemodynamically stable condition. Physical Exam Const: COMMON NORMALS: patient oriented x3 and alert GENERAL APPEARANCE: cooperative ORIENTATION/CONSCIOUSNESS: Yes awake HENMT: COMMON NORMALS: oropharynx normal Neck/C-Spine: COMMON NORMALS: no JVD Resp: COMMON NORMALS: normal respiratory effort and clear to auscultation bilaterally AUSCULTATION: clear to auscultation bilaterally Cardio: COMMON NORMALS: no JVD, regular rhythm, S1 normal heart sound present, S2 normal heart sound present and No murmurs present (Cardio) RHYTHM: regular rhythm HEART SOUNDS: S1 normal heart sound present and S2 normal heart sound present GI: COMMON NORMALS: Normal to inspection, nondistended, normoactive bowel sounds present, Soft to palpation and non-tender PALPATION: Yes Soft to palpation OTHER: Abdominal tenderness left lower quadrant with. Abdomen soft. No guarding. Grimaces. Extremity: COMMON NORMALS: no joint enlargement and no pedal edema Neuro: COMMON NORMALS: patient oriented x3 and moves all extremities SENSORIUM/ORIENTATION: Yes alert Skin: COMMON NORMALS: no rashes or lesions noted GENERAL SKIN EXAM: no rashes or lesions noted TS Data Studies Completed and Pending Pending at discharge Category Date Time Status Lactoferrin Routine Lab 04/30/25 11:57 Ordered OVA and Parasites, Conc and PE Routine Lab 04/30/25 11:57 Ordered Salmonella / Shigella / Campy Routine Lab 04/30/25 11:57 Ordered Completed Studies During Hospitalization Category Date Time Status CT abdomen pelvis w con* [id number] Routine Cat Scan 04/30/25 11:[address] abdomen pelvis w con* [id number] Stat Cat Scan 04/25/25 02:[address] abdomen pelvis w con* [id number] Stat Cat Scan 04/27/25 08:55 Completed XR chest 1V portable [id number] Stat Exams 04/25/25 03:09 Completed Laboratory Last Values WBC 12.89 10^3/uL (3.29-11.43) H 04/30/25 09:27 RBC 3.33 10^6/uL (3.85-5.65) L 04/30/25 09:27 Hgb 8.10 g/dL (11.27-16.99) L 04/30/25 09:27 Hct 27.2 % (36-47) L 04/30/25 09:27 MCV 81.7 fl (85-98) L 04/30/25 09: MCH 24.3 pg (27-33) L 04/30/25 09: MCHC 29.8 g/dL (30-55) L 04/30/25 09: RDW 21.9 % (12.1-15.1) H 04/30/25 09:27 Plt Count 478 10^3/cmm (157-399) H 04/30/25 09:27 MPV 8.8 fL (7.4-10.4) 04/30/25 09:27 Neut % (Auto) 75.2 % 04/30/25 09: Lymph % (Auto) 15.7 % 04/30/25 09:27 [place]uming % (Auto) 5.6 % 04/30/25 09:27 Eos % (Auto) 2.1 % 04/30/25 09: Baso % (Auto) 0.5 % 04/30/25 09:27 Neut # (Auto) 9.70 10^3/uL (1.8-7.7) H 04/30/25 09:27 Lymph # (Auto) 2.0 10^3/uL (0.8-4.8) 04/30/25 09:27 Cuming # (Auto) 0.7 10^3/uL (0.2-0.9) 04/30/25 09:27 Eos # (Auto) 0.3 10^3/uL (0.0-0.8) 04/30/25 09:27 Baso # (Auto) 0.1 10^3/uL (0.0-0.1) 04/30/25 09:27 Nucleated RBC % (auto) 0 % 04/30/25 09: Nucleated RBCs # 0.0 /100WBC 04/30/25 09:27 Sodium 138 mmol/L (136-145) 04/30/25 09:27 Potassium 3.7 mmol/L (3.5-5.1) 04/30/25 09:27 Chloride 108 mmol/L (98-107) H 04/30/25 09:27 Carbon Dioxide 19 mmol/L (22-29) L 04/30/25 09:27 Anion Gap 14.7 (5-19) 04/30/25 09:27 BUN 3 mg/dL (6-20) L 04/30/25 09:27 Creatinine 0.6 mg/dL (0.5-0.9) 04/30/25 09:27 GFR Calculation 109.1 mL/min (90-130) 04/30/25 09:27 Glucose 120 mg/dL (65-115) H 04/30/25 09:27 Estimat Average Glucose 105 04/30/25 09:27 Hemoglobin A1c 5.3 % (4.0-6.0) 04/30/25 09:27 Calculated Osmolality 284 mOsm/kg (285-295) L 04/30/25 09:27 Lactic Acid 1.3 mmol/L (0.5-2.2) 04/25/25 01:19 Lactate 1.0 mmol/L (0.5-2.2) 04/26/25 11:32 Calcium 7.7 mg/dL (8.5-10.5) L 04/30/25 09:27 Iron 18 ug/dL (37-145) L 04/28/25 03:07 TIBC 145 mcg/dl 04/28/25 03:07 % Saturation 12.4 % (20-50) L 04/28/25 03:07 Unsat Iron Binding 127 ug/dL (112-347) 04/28/25 03:07 Ferritin 81 ng/mL (15-150) 04/28/25 03:07 Total Bilirubin 0.2 mg/dL (0.15-1.2) 04/30/25 09:27 AST 7 U/L (0-32) 04/30/25 09:27 ALT < 5 U/L (0-33) 04/30/25 09:27 Alkaline Phosphatase 58 U/L (35-105) 04/30/25 09:27 Total Protein 5.9 g/dL (6.6-8.7) L 04/30/25 09:27 Albumin 2.7 g/dL (3.5-5.2) L 04/30/25 09:27 Globulin 3.2 g/dL (1.3-4.6) 04/30/25 09:27 Vitamin B12 399 pg/mL (232-1245) 04/28/25 03:07 Folate 13.1 ng/mL (4.8-37.3) 04/28/25 03:07 Procalcitonin 0.07 ng/mL (0-0.5) 04/30/25 09: TSH 3.76 uIU/mL (0.27-4.20) 04/30/25 09:27 Urine Color Yellow (Yellow) 04/25/25 04:12 Urine Appearance Clear (CLEAR) 04/25/25 04:12 Urine pH 6.0 (5-7) 04/25/25 04:12 Ur Specific [place] 1.007 (1.005-1.030) 04/25/25 04:12 Urine Protein Negative (Negative) 04/25/25 04:12 Urine Glucose (UA) Negative (Normal) 04/25/25 04:12 Urine Ketones Negative (Negative) 04/25/25 04:12 Urine Blood Non-haemolysed trace (Negative) 04/25/25 04:12 Urine Nitrate Negative (Negative) 04/25/25 04:12 Urine Bilirubin Negative (Negative) 04/25/25 04:12 Urine Urobilinogen 1.0 mg/dL (Negative) 04/25/25 04:12 Ur Leukocyte Esterase Negative (Negative) 04/25/25 04:12 Urine RBC 0-2 /hpf (0-2) 04/25/25 04:12 Urine WBC 0-5 /hpf (0-5) 04/25/25 04:12 Ur Squamous Epith Cells 0-5 /hpf (0-5) 04/25/25 04:12 Amorphous Sediment Not Reportable 04/25/25 04:12 Urine Bacteria None seen /hpf (NONE) 04/25/25 04:12 Hyaline Casts 0-4 /lpf H 04/25/25 04:12 C. difficile (PCR) Cancelled 04/26/25 13:15 Radiology Impressions Chest X-Ray 04/25/25 03:09 IMPRESSION: 1. 2.6 cm mass in the left lung base. 2. Left Port-A-Cath in the SVC. Abdomen/Pelvis CT 04/30/25 11:50 IMPRESSION: 1. Persistent circumferential wall thickening in the sigmoid colon and rectum. Worsened stool and fluid distension of the colon proximal to this suggesting increasing obstruction. While this may represent colitis/proctitis, malignancy is not excluded. 2. New mild right hydronephrosis. 3. Stable faint sclerosis of the S1 vertebral body. Metastatic disease not excluded. Consider further evaluation with whole-body bone scan. 4. Slight decrease in size of 2.4 x 2.1 cm left lower lobe pulmonary nodule and stable size of 1.3 cm noncalcified right lower lobe pulmonary nodule. Both presumed to represent metastases. 5. Hepatic steatosis. ADDENDUM: 04/30/25 [id number] THIS REPORT CONTAINS FINDINGS THAT MAY BE CRITICAL TO PATIENT CARE. The findings were verbally communicated via telephone conference at 4:43 PM CDT on 04/30/2025 with DUDLEY WILLIAM. The findings were acknowledged and understood. Recent Clincial Data Last Vital Signs Temp 98.1 F 04/30/25 22:27 Pulse 101 H 04/30/25 22:27 Resp 17 04/30/25 22:27 BP 125/77 04/30/25 22:27 Pulse Ox 95 04/30/25 22:27 O2 Del Method Room Air 04/30/25 15:08 Vital Signs Temp Pulse Resp BP Pulse Ox O2 Del Method 04/30/25 22:27 98.1 F 101 H 17 125/77 95 04/30/25 22:11 17 04/30/25 20:49 98.1 F 101 H 18 125/77 95 04/30/25 19:53 17 04/30/25 19:49 99.0 F 67 16 107/70 98 04/30/25 15:08 98.4 F 83 16 121/87 96 Room Air 04/30/25 11:32 98.2 F 82 15 109/76 96 Room Air 04/30/25 11:30 18 Intake & Output/Weight 08/1104/29/25 04/30/25 05/01/25 06:59 06:59 06:59 06:59 Intake Total 2180 / 2180 269. / 2695. 2594.583 / 2594.583 1346.667 / 1346.667 Balance 2180 / 2180 2695. / 2594.583 / 2594.583 1346.667 / 1346.667 Weight 102.149 kg 100.244 kg 102.512 kg Vitals Last Vital Signs Temp 98.1 F 04/30/25 22:27 Pulse 101 H 04/30/25 22:27 Resp 17 04/30/25 22:27 BP 125/77 04/30/25 22:27 Pulse Ox 95 04/30/25 22:27 O2 Del Method Room Air 04/30/25 15:08 TS Medications Medications Discontinued Medications Acetaminophen (Acetaminophen 325 Mg Tablet) 650 mg PO Q6H PRN PRN Reason: Mild/Mod Pain Or Temp >/= 101 Al Hydrox/Mg Hydrox/Simethicone (Anzt-Qwe-Xlqvcbusj-Juan 30 Ml Udc) 30 ml PO Q4H [facility] Last Admin: 04/30/25 21:58 Dose: Not Given Bisacodyl (Bisacodyl 5 Mg Tablet) 10 mg PO DAILY STA Stop: 04/28/25 14:20 Last Admin: 04/28/25 16:21 Dose: 10 mg Calcium Carbonate (Calcium Carbonate 600 Mg Tablet) 600 mg PO BID [facility] Last Admin: 04/28/25 09:09 Dose: 600 mg Cholestyramine Resin (Cholestyramine Powder 4 Gm Pkt) 4 gm PO DAILY [facility] Last Admin: 04/30/25 08:48 Dose: 4 gm Clonazepam (Clonazepam 1 Mg Tablet) 1 mg PO DAILY PRN PRN Reason: ANXIETY Fluoxetine HCl (Fluoxetine 20 Mg Capsule) 40 mg PO DAILY [facility] Last Admin: 04/30/25 08:47 Dose: 40 mg Gabapentin (Gabapentin 300 Mg Capsule) 300 mg PO TID [facility] Last Admin: 04/30/25 21:58 Dose: Not Given Hydromorphone HCl (Hydromorphone 0.5 Mg/0.5 Ml Inj) 1 mg IVP ONCE ONE Stop: 04/25/25 02:04 Last Admin: 04/25/25 02:21 Dose: 1 mg Hydromorphone HCl (Hydromorphone 0.5 Mg/0.5 Ml Inj) 1 mg IVP ONCE ONE Stop: 04/25/25 04:25 Last Admin: 04/25/25 04:39 Dose: 1 mg Hydromorphone HCl (Hydromorphone 0.5 Mg/0.5 Ml Inj) 1 mg IVP Q3H PRN PRN Reason: SEVERE PAIN Last Admin: 04/29/25 03:11 Dose: 1 mg Hydromorphone HCl (Hydromorphone 0.5 Mg/0.5 Ml Inj) 1 mg IVP Q3H PRN PRN Reason: PAIN Last Admin: 04/30/25 06:30 Dose: 1 mg Hydromorphone HCl (Hydromorphone 0.5 Mg/0.5 Ml Inj) 1 mg IVP Q2H PRN PRN Reason: SEVERE PAIN Last Admin: 04/30/25 21:17 Dose: 1 mg Sodium Chloride (Sodium Chloride 0.9%) 1,000 mls @ 999 mls/hr IV .Q1H1M ONE Stop: 04/25/25 03:03 Last Infusion: 04/25/25 03:23 Dose: Infused Piperacillin Sod/Tazobactam (Sod 3.375 gm/ Sodium Chloride) 50 mls @ 100 mls/hr IV ONCE ONE; Protocol Stop: 04/25/25 06:15 Last Admin: 04/25/25 05:51 Dose: Not Given Ciprofloxacin/Dextrose (Cipro) 400 mg in 200 mls @ 200 mls/hr IV Q12H JEFF; Protocol Last Infusion: 04/30/25 08:19 Dose: Infused Metronidazole (Flagyl Iv) 500 mg in 100 mls @ 100 mls/hr IV Q8H JEFF; Protocol Last Infusion: 04/30/25 08:19 Dose: Infused Sodium Chloride (Sodium Chloride 0.9%) 1,000 mls @ 75 mls/hr IV .[id number] JEFF Last Admin: 04/30/25 15:18 Dose: 75 mls/hr Piperacillin Sod/Tazobactam (Sod 3.375 gm/ Sodium Chloride) 50 mls @ 12.5 mls/hr IV Q8H JEFF Last Infusion: 04/30/25 19:59 Dose: Infused Iohexol (Iohexol 350 Mg/Ml 500 Ml Btl (Per Ml)) 0 ml IV ONCE ONE Stop: 04/25/25 04:25 Last Admin: 04/25/25 04:24 Dose: 100 ml Iohexol (Iohexol 350 Mg/Ml 500 Ml Btl (Per Ml)) 0 ml IV ONCE ONE Stop: 04/27/25 11:07 Last Admin: 04/27/25 11:07 Dose: 100 ml Iohexol (Iohexol 300 Mg/Ml 100 Ml Btl) 0 ml IV ONCE ONE Stop: 04/27/25 11:08 Last Admin: 04/27/25 11:08 Dose: 25 ml Iohexol (Iohexol 350 Mg/Ml 500 Ml Btl (Per Ml)) 0 ml IV ONCE ONE Stop: 04/30/25 16:01 Last Admin: 04/30/25 16:01 Dose: 100 ml Magnesium Citrate (Magnesium Citrate Btl 296 Ml) 296 ml PO ONCE ONE Stop: 04/30/25 10:22 Last Admin: 04/30/25 10:43 Dose: 296 ml Magnesium Hydroxide (Magnesium Hydroxide 30 Ml Udc) 30 ml PO BEDTIME JEFF Last Admin: 04/30/25 21:58 Dose: Not Given Morphine Sulfate (Morphine 4 Mg/Ml Sdv 1 Ml) 1 mg IVP Q4H PRN PRN Reason: SEVERE PAIN Last Admin: 04/30/25 19:53 Dose: 1 mg Ondansetron HCl (Ondansetron 2 Mg/Ml Sdv 2 Ml) 8 mg IVP ONCE ONE Stop: 04/25/25 02:04 Last Admin: 04/25/25 02:22 Dose: 8 mg Ondansetron HCl (Ondansetron 2 Mg/Ml Sdv 2 Ml) 4 mg IVP Q8H PRN PRN Reason: vomiting, or N/V if npo Last Admin: 04/30/25 19:53 Dose: 4 mg Oxycodone HCl (Oxycodone 5 Mg Ir Tab/Cap) 5 mg PO Q4H PRN PRN Reason: PAIN Last Admin: 04/29/25 06:44 Dose: 5 mg Oxycodone HCl (Oxycodone 10 Mg Er (12 Hr) Tablet) 10 mg PO BID@0500,1700 [facility] Last Admin: 04/30/25 17:37 Dose: 10 mg Oxycodone/Acetaminophen (Oxycodone-Apap 5-325 Mg Tablet) 1 tab PO Q4H PRN PRN Reason: MODERATE PAIN Last Admin: 04/30/25 22:11 Dose: 1 tab Pantoprazole Sodium (Pantoprazole Dr 40 Mg Tablet) 40 mg PO DAILY [facility] Last Admin: 04/30/25 08:47 Dose: 40 mg Psyllium Hydrophilic Mucilloid (Psyllium Powder Pkt) 1 packet PO DAILY [facility] Last Admin: 04/27/25 08:32 Dose: Not Given Psyllium Hydrophilic Mucilloid (Psyllium Powder Pkt) 1 packet PO BID [facility] Last Admin: 04/29/25 09:34 Dose: 1 packet Psyllium Hydrophilic Mucilloid (Psyllium Powder Pkt) 1 packet PO BID@0500,1700 [facility] Last Admin: 04/30/25 17:39 Dose: Not Given Senna/Docusate Sodium (Sennosides-Docusate Tablet) 1 tab PO DAILY STA Stop: 04/27/25 14:20 Last Admin: 04/27/25 14:28 Dose: 1 tab Senna/Docusate Sodium (Sennosides-Docusate Tablet) 1 tab PO BID@0500,1700 [facility] Last Admin: 04/30/25 17:39 Dose: Not Given Vitamin D (Cholecalciferol (Vitamin D3) 1,000 Unit Tablet) 2,000 unit PO DAILY [facility] Last Admin: 04/28/25 09:08 Dose: 2,000 unit Zolpidem Tartrate (Zolpidem 5 Mg Tablet) 10 mg PO BEDTIME PRN PRN Reason: SLEEP Allergies azithromycin Allergy (Verified 11/13/24 18:12) ALGY-Rash Home Medications cholestyramine (with sugar) 4 gram powder for susp in a packet 1 ea PO DAILY 04/13/25 [History Confirmed 04/25/25] clonazepam 1 mg tablet 1 mg PO DAILY PRN Anxiety 04/13/25 [History Confirmed 04/25/25] diphenoxylate-atropine 2.5 mg-0.025 mg tablet 1 tab PO QID PRN Diarrhea 04/13/25 [History Confirmed 04/25/25] famotidine 20 mg tablet 20 mg PO BID 04/13/25 [History Confirmed 04/25/25] fluoxetine 40 mg capsule 40 mg PO DAILY 04/13/25 [History Confirmed 04/25/25] gabapentin 300 mg capsule 300 mg PO TID 04/13/25 [History Confirmed 04/25/25] hydrocodone 5 mg-acetaminophen 325 mg tablet 1 tab PO Q6H PRN pain #14 tabs 04/13/25 [Rx Confirmed 04/25/25] methadone 10 mg tablet 10 mg PO .1 TO 3 TIMES DAILY 04/13/25 [History Confirmed 04/25/25] ondansetron 4 mg disintegrating tablet 4 mg PO Q6H PRN nausea and vomiting #14 tabs 04/13/25 [Rx Confirmed 04/25/25] oxycodone 5 mg tablet 5 mg PO .Q4-6H PRN Pain 04/13/25 [History Confirmed 04/25/25] pantoprazole 40 mg tablet,delayed release 40 mg PO DAILY 04/13/25 [History Confirmed 04/25/25] zolpidem 10 mg tablet 10 mg PO BEDTIME 04/13/25 [History Confirmed 04/25/25] calcium carbonate (Tums) 600 mg PO BID 04/25/25 [History Confirmed 04/25/25] cholecalciferol (vitamin D3) 50 mcg (2,000 unit) capsule (Vitamin D3) 50 mcg PO DAILY 04/25/25 [History Confirmed 04/25/25] psyllium husk 3.4 gram/5.4 gram oral powder (Metamucil) 1 tbsp PO DAILY 04/25/25 [History Confirmed 04/25/25] Discharge Plan Discharge Patient Disposition: Xfer Other Condition: Stable Prescriptions: No Action fluoxetine 40 mg capsule 40 mg PO DAILY methadone 10 mg tablet 10 mg PO .1 TO 3 TIMES DAILY Patient Comments: Patient states she has stopped taking due to started taking fentanyl ptches clonazepam 1 mg tablet 1 mg PO DAILY PRN (Reason: Anxiety) Patient Comments: patient states she takes prn diphenoxylate-atropine 2.5-0.025 mg tablet 1 tab PO QID PRN (Reason: Diarrhea) famotidine 20 mg tablet 20 mg PO BID pantoprazole 40 mg tablet,delayed release (DR/EC) 40 mg PO DAILY gabapentin 300 mg capsule 300 mg PO TID zolpidem 10 mg tablet 10 mg PO BEDTIME oxycodone 5 mg tablet 5 mg PO .Q4-6H PRN (Reason: Pain) cholestyramine (with sugar) 4 gram powder in packet 1 ea PO DAILY hydrocodone-acetaminophen 5-325 mg tablet 1 tab PO Q6H PRN (Reason: pain) Qty: 14 0RF ondansetron 4 mg tablet,disintegrating 4 mg PO Q6H PRN (Reason: nausea and vomiting) Qty: 14 0RF Tums 300 mg (750 mg) Tablet,Chewable 600 mg PO BID cholecalciferol (vitamin D3) [Vitamin D3] 50 mcg (2,000 unit) Capsule 50 mcg PO DAILY Metamucil 3.4 gram/5.4 gram Powder 1 tbsp PO DAILY Rx Instructions: mix into at least 8 oz of water or juice before administering Discharge Order = DC NOW: Transfer Out of Facility (Order); Ordered 04/30/25 Ordered By: Dudley William Referrals: JOSE A DAVIS MD [[facility]] Patient Instructions: Opioid Safety, Patient Portal & [place] Instructions Transfer Attestations Time Spent in Transfer Care: greater than 30 min Specific Discharge Activities: educating patient, discussing with pcp/other providers, discussing with case briefer/social workers/dc planners, documenting/other paperwork and evaluating patient/reviewing data Status at Transfer: Cognitive status at transfer: cognitively intact ; Behavioral status at transfer: cooperative ; Functional status at transfer: independent ambulation ; Overall status at transfer: patient is not back to baseline Quality Metrics Clinical Quality Measures [ No reported AMI, CVA or VTE this stay] Coding Level of Care Code 76891 Total time (in minutes) for Discharge: 65 Diagnoses Colon cancer C18.7 Colon location: sigmoid Colitis K52.9 Anemia in chronic illness D63.8 Constipation K59.00
--- NOTE | 2025-05-01 01:22 | PC.NURSE ---
This nurse called report to [facility]. Report was given to NEDRA Romero on the neuroscience unit room 3316. Patient left [facility] at 2221 with EMS in route to [facility].
== END 2025-04-30 22:21 | disposition short-term general hospital (02) | DRG 392 ==
LOC: ER 04-25 07:39 → ER IP 04-25 09:22 → MEDSURG 04-25 14:59
PROVIDERS: Emergency Medicine; Internal Medicine; Student in an Organized Health Care Education/Training Program; Admitting Provider Family Medicine; Emergency Provider Family Medicine; PCP Family Medicine; Visit Provider Student in an Organized Health Care Education/Training Program
DX: K52.9 Noninfective gastroenteritis and colitis, unspecified (principal); C18.9 Malignant neoplasm of colon, unspecified; K56.609 Unspecified intestinal obstruction, unspecified as to partial versus complete obstruction; D64.89 Other specified anemias; F17.290 Nicotine dependence, other tobacco product, uncomplicated; Z92.21 Personal history of antineoplastic chemotherapy; Z92.3 Personal history of irradiation
CPT/HCPCS: 36415; 71045; 74177; 80053; 81001; 82607; 82728; 82746; 83036; 83540; 83550; 83605; 84145; 84443; 85025; 96365; 96367; 96375; 96376; 99285; J0744; J1171; J2270; J2405; J2543; J3490; J7030; J9999